=== PATIENT | male | born 1970 | race Caucasian/White ===

== ENCOUNTER 2019-07-06 21:21 | Inpatient (IN) | payer OTHER ==
[~2019-07-06] VITALS: Ht 177.8 cm; Wt 80.7 kg
[2019-07-06] MEDS ORDERED: ONDANSETRON 4 MG/2 ML VIAL IV ONE (21:45)
[2019-07-06] MEDS ORDERED: MORPHINE SULFATE 4 MG/1 ML DISP.SYRIN IV ONE (21:45)
[2019-07-06] MEDS ORDERED: MORPHINE SULFATE 4 MG/1 ML DISP.SYRIN ONE (21:47)
[2019-07-06] MEDS ORDERED: ONDANSETRON 4 MG/2 ML VIAL ONE (21:47)
[2019-07-06 21:52] LABS: BASOPHILS # (AUTO) 0.1 K/uL (0.0-8.0); BASOPHILS % (AUTO) 0.5 % (0.0-2.0); EOSINOPHILS # (AUTO) 0.1 K/uL (0.0-0.7); EOSINOPHILS % (AUTO) 0.8 % (0.0-7.0); HEMATOCRIT 44.8 % (36.7-47.1); HEMOGLOBIN 15.2 g/dL (12.5-16.3); LYMPHOCYTES # (AUTO) 1.7 K/uL (20.0-40.0); LYMPHOCYTES % (AUTO) 12.4 % (20.5-51.5); MEAN CORPUSCULAR HEMOGLOBIN 28.9 uug (23.8-33.4); MEAN CORPUSCULAR HGB CONC 34 g/dL (32.5-36.3); MEAN CORPUSCULAR VOLUME 85.1 fL (73.0-96.2); MONOCYTES # (AUTO) 0.5 K/uL (2.0-10.0); NEUTROPHILS # (AUTO) 11.1 K/uL (1.8-8.9); NEUTROPHILS % (AUTO) 82.3 % (38.5-71.5); PLATELET COUNT (AUTO) 258 K/uL (152-348); RED BLOOD CELL COUNT(AUTO) 5.26 MIL/uL (4.06-5.63); WHITE BLOOD COUNT (AUTO) 13.5 K/uL (3.6-10.2)
[2019-07-06 22:02] LABS: CREATININE 0.7 mg/dL (0.6-1.3); POTASSIUM 3.6 mmol/L (3.5-5.1)
[2019-07-06 22:14] LABS: BILIRUBIN,DIRECT 0.2 mg/dL (0.0-0.2); BILIRUBIN,TOTAL 0.6 mg/dL (0.2-1.0); TOTAL PROTEIN, SERUM 8.3 g/dL (6.4-8.2)
[2019-07-06 23:00] LABS: *BILIRUBIN,URIN NEGATIVE (NEGATIVE); *BLOOD, URINE 2+ (NEGATIVE); *CLARITY,URINE CLOUDY (CLEAR); *COLOR,URINE YELLOW (YELLOW); *KETONES,URINE 2+ (NEGATIVE); LEUKOCYTE ESTERASE ,URINE 1+ (NEGATIVE); NITRITE, URINE POSITIVE (NEGATIVE); UGLUCOSE NEGATIVE (NEGATIVE)
[2019-07-06] MEDS ORDERED: ACETAMINOPHEN ES 500 MG TABLET PO ONE (23:00)
[2019-07-06] MEDS ORDERED: OSELTAMIVIR PHOSPHATE 75 MG CAPSULE PO ONE (23:00)
[2019-07-06] MEDS ORDERED: PIPERACILLIN SODIUM/TAZOBACTAM 3.375 G in IV DEXTROSE 5% 50 ML IV ONE (23:00)
[2019-07-06] MEDS ORDERED: AZITHROMYCIN IV 500 MG in IV DEXTROSE 5% 250 ML IV ONE (23:00)
[2019-07-06] MEDS ORDERED: VANCOMYCIN 1G/D5W 200 ML PIGGYBACK IV ONE (23:00)
[2019-07-06 23:14] LABS: BACTERIA,URINE MANY /HPF (NONE SEEN); MUCUS,URINE MODERATE /LPF (0-FEW); SQUAMOUS EPITHELIAL CELL,UR FEW /HPF (NONE SEEN); WBC,URINE 20-50 /HPF (0-3)
[2019-07-06] MEDS ORDERED: HYDROMORPHONE 1 MG/1 ML DISP.SYRIN ONE (23:36)
[2019-07-06] MEDS ORDERED: HYDROMORPHONE 1 MG/1 ML DISP.SYRIN IV ONE (23:45)
--- NOTE | 2019-07-07 00:30 | NUR ---
Called [facility] for panel placement
[2019-07-07] MEDS ORDERED: PIPERACILLIN/TAZOBACTAM/D5W 50 ML IV ONE (00:43)
[2019-07-07] MEDS ORDERED: AZITHROMYCIN 500MG/ D5W 250ML IVPB **ER PYXIS ONLY IV ONE (00:44)
[2019-07-07] MEDS ORDERED: MAGNESIUM HYDROXIDE 30 ML LIQUID UDC PO PRN (00:45)
[2019-07-07] MEDS ORDERED: Z GUARD REMEDY PASTE 57 GM TUBE TOP PRN (00:45)
[2019-07-07] MEDS ORDERED: ALBUTEROL SULFATE 2.5 MG/ 0.5 ML NEBU NEB PRN (00:45)
[2019-07-07] MEDS ORDERED: ACETAMINOPHEN 325 MG TABLET PO PRN (00:45)
[2019-07-07] MEDS ORDERED: ONDANSETRON 4 MG/2 ML VIAL ONE (01:30)
[2019-07-07] MEDS ORDERED: IV NS 1000 ML 1,000 ML IV ONE ×2 (01:45→02:00)
--- NOTE | 2019-07-07 02:51 | NUR ---
NS IV FLUID AND VANCOMYCIN 1G IV TO INFUSE IN TELEMETRY. LARISA RUFF AWARE
--- NOTE | 2019-07-07 03:00 | NUR ---
awake alert quadriplegic, foot drop noted bilateral arms contracted, decub on right buttocks,healed bilateral heels mother at bedside
[2019-07-07] MEDS: IV NS 1000 ML 1,000 ML IV PRN ×2 (04:36→22:09)
[2019-07-07 05:41] VITALS: BP 114/58
[2019-07-07 05:43] VITALS: BP_SYST 118; BP_SYST 99; BP_DIAS 77
[2019-07-07] MEDS ORDERED: PIPERACILLIN SODIUM/TAZOBACTAM 3.375 G in IV DEXTROSE 5% 50 ML IV ONE (06:45)
[2019-07-07] MEDS: HYDROCODONE/APAP 5-325MG TABLET PO PRN ×2 (07:50→13:41)
[2019-07-07] MEDS: ONDANSETRON 4 MG/2 ML VIAL IV PRN ×3 (08:15→20:39)
[2019-07-07] MEDS: VANCOMYCIN IV 1,250 MG in IV DEXTROSE 5% 250 ML IV SCH ×2 (08:16→17:07)
[2019-07-07 11:36] VITALS: BP 133/79
[2019-07-07] MEDS ORDERED: PIPERACILLIN SODIUM/TAZOBACTAM 3.375 G in IV DEXTROSE 5% 50 ML IV SCH (14:00)
[2019-07-07] MEDS: GUAIFENESIN LA 600 MG TABLET.SA PO SCH ×2 (14:17→20:20)
[2019-07-07 14:44] LABS: BASOPHILS % (AUTO) 0.2 % (0.0-2.0); EOSINOPHILS % (AUTO) 0.3 % (0.0-7.0); HEMATOCRIT 38.9 % (36.7-47.1); HEMOGLOBIN 12.9 g/dL (12.5-16.3); LYMPHOCYTES # (AUTO) 1.6 K/uL (20.0-40.0); LYMPHOCYTES % (AUTO) 10.1 % (20.5-51.5); MEAN CORPUSCULAR HEMOGLOBIN 28.3 uug (23.8-33.4); MEAN CORPUSCULAR HGB CONC 33 g/dL (32.5-36.3); MEAN CORPUSCULAR VOLUME 85.3 fL (73.0-96.2); MONOCYTES # (AUTO) 0.8 K/uL (2.0-10.0); NEUTROPHILS # (AUTO) 13.1 K/uL (1.8-8.9); NEUTROPHILS % (AUTO) 84.4 % (38.5-71.5); PLATELET COUNT (AUTO) 251 K/uL (152-348); RED BLOOD CELL COUNT(AUTO) 4.56 MIL/uL (4.06-5.63); WHITE BLOOD COUNT (AUTO) 15.5 K/uL (3.6-10.2)
[2019-07-07 14:54] LABS: ALANINE AMINOTRANSFERASE 18 U/L (16-63); ALKALINE PHOSPHATASE 94 U/L (50-136); ASPARTATE AMINOTRANSFERASE 8 U/L (15-37); BILIRUBIN,TOTAL 0.6 mg/dL (0.2-1.0); CARBON DIOXIDE 22 mmol/L (21-32); CHLORIDE 103 mmol/L (98-107); CREATININE 0.6 mg/dL (0.6-1.3); GLUCOSE 122 mg/dL (74-106); MAGNESIUM 1.7 mg/dL (1.8-2.4); PHOSPHOROUS 3.3 mg/dL (2.5-4.9); POTASSIUM 3.3 mmol/L (3.5-5.1); TOTAL PROTEIN, SERUM 7.2 g/dL (6.4-8.2); UREA NITROGEN, BLOOD 12 mg/dL (7-18)
--- NOTE | 2019-07-07 14:57 | NUR ---
Clinical Pharmacy Note: Vancomycin Pharmacy to Dose Subjective: To start vancomycin in this 48 y/o female for indication of "suspected infection" Objective: weight 80kg height 177cm BUN/SCr 18/0.7 wbc 13.5 temp 98.4 1gm vanco x1 in ER 07/07 @ 0220 Assessment/Plan As renal function appears stable, will start vancomycin 1250mg q8h for estimated trough of 16.3, first dose today at 0900. Will check trough before 4th scheduled dose, due tomorrow at 0830. Will check trough when available and adjust as needed. Will follow
[2019-07-07 15:32] VITALS: BP 122/74
--- NOTE | 2019-07-07 18:37 | NUR ---
PATIENT IN BED RESTING WITH NO SOB NOTED AND NO C/O PAIN AT THIS TIME. IV INTACT AND PATENT. KEPT CLEAN AND DRY ATALL TIMES. CALL LIGHT WITHIN REACH AND WILL CONTINUE TO MONITOR.
[2019-07-07 20:14] VITALS: BP 158/85
[2019-07-07] MEDS: HYDROMORPHONE 1 MG/1 ML DISP.SYRIN IV PRN (20:21)
[2019-07-07] MEDS: AZITHROMYCIN 250 MG TABLET PO SCH (21:56)
[2019-07-07] MEDS: CEFEPIME HCL 1 G in IV DEXTROSE 5% 50 ML IV SCH (21:58)
[2019-07-08] MEDS: VANCOMYCIN IV 1,250 MG in IV DEXTROSE 5% 250 ML IV SCH ×2 (01:13→09:00)
[2019-07-08] MEDS ORDERED: VANCOMYCIN HCL 500 MG VIAL ONE (01:13)
[2019-07-08] MEDS ORDERED: VANCOMYCIN 1000 MG VIAL ONE (01:13)
[2019-07-08] MEDS: HYDROMORPHONE 1 MG/1 ML DISP.SYRIN IV PRN (04:46)
[2019-07-08 05:14] VITALS: BP 112/61
[2019-07-08] MEDS: ONDANSETRON 4 MG/2 ML VIAL IV PRN ×2 (05:19→14:05)
[2019-07-08 06:59] LABS: BASOPHILS % (AUTO) 0.4 % (0.0-2.0); EOSINOPHILS # (AUTO) 0.1 K/uL (0.0-0.7); EOSINOPHILS % (AUTO) 1.2 % (0.0-7.0); HEMATOCRIT 39.5 % (36.7-47.1); HEMOGLOBIN 13.3 g/dL (12.5-16.3); LYMPHOCYTES # (AUTO) 1.7 K/uL (20.0-40.0); LYMPHOCYTES % (AUTO) 16.1 % (20.5-51.5); MEAN CORPUSCULAR HEMOGLOBIN 28.6 uug (23.8-33.4); MEAN CORPUSCULAR HGB CONC 34 g/dL (32.5-36.3); MEAN CORPUSCULAR VOLUME 85.1 fL (73.0-96.2); MONOCYTES # (AUTO) 0.6 K/uL (2.0-10.0); MONOCYTES % (AUTO) 5.6 % (0.0-11.0); NEUTROPHILS # (AUTO) 8.2 K/uL (1.8-8.9); NEUTROPHILS % (AUTO) 76.7 % (38.5-71.5); PLATELET COUNT (AUTO) 251 K/uL (152-348); RED BLOOD CELL COUNT(AUTO) 4.64 MIL/uL (4.06-5.63); WHITE BLOOD COUNT (AUTO) 10.7 K/uL (3.6-10.2)
[2019-07-08 07:14] LABS: CARBON DIOXIDE 25 mmol/L (21-32); CHLORIDE 105 mmol/L (98-107); CHOLESTEROL 191 mg/dL (<200); CREATININE 0.5 mg/dL (0.6-1.3); GLUCOSE 107 mg/dL (74-106); HDL CHOLESTEROL 21 mg/dL (40-60); MAGNESIUM 1.9 mg/dL (1.8-2.4); PHOSPHOROUS 3.1 mg/dL (2.5-4.9); POTASSIUM 3.3 mmol/L (3.5-5.1); TRIGLYCERIDES 151 MG/DL (30-150); UREA NITROGEN, BLOOD 10 mg/dL (7-18)
[2019-07-08] MEDS: CEFEPIME HCL 1 G in IV DEXTROSE 5% 50 ML IV SCH ×2 (08:46→20:24)
[2019-07-08] MEDS: GUAIFENESIN LA 600 MG TABLET.SA PO SCH ×3 (08:46→20:23)
--- NOTE | 2019-07-08 09:34 | NUR ---
Called Demetra to report elevated vanco trough results, held AM dose of vanco. She will redo dosing.
--- NOTE | 2019-07-08 10:17 | NUR ---
Clinical Pharmacy Note: Vancomycin Pharmacy to Dose Subjective: To continue vancomycin in this 48 y/o female for indication of sepsis/CAP/UTI Objective: weight 80kg height 177cm BUN/SCr 10/0.5 wbc 10.7 temp 99.2 Vancomycin trough on 07/08 at 0830:28.5 Assessment/Plan Since Vancomycin trough is over the therapeutic range(patient is quadriplegic), will hold dose and order random (ordered today at 1500) for further dosing. Will follow the level. Addendum: 07/08/19 at 1625 by DUNG COBURN VANCOMYCIN RANDOM AT 1500: 15.3 WILL CHANGE DOSE TO 1250MG EVERY 12HRS (FIRST DOSE TODAY AT 1700) FOR EXPECTED TROUGH AROUND 15.9
[2019-07-08] MEDS: HYDROCODONE/APAP 5-325MG TABLET PO PRN ×3 (10:57→20:30)
[2019-07-08 11:29] VITALS: BP 155/100
[2019-07-08] MEDS ORDERED: ALBUTEROL SULFATE 1.25 MG/3 ML NEBU NEB SCH (12:30)
[2019-07-08] MEDS ORDERED: POTASSIUM CHLORIDE 20 MEQ TAB.PRT.SR PO ONE (14:30)
[2019-07-08] MEDS: ALBUTEROL SULFATE 1.25 MG/3 ML NEBU NEB SCH ×3 (14:34→23:52)
[2019-07-08] MEDS: IPRATROPIUM BROMIDE 0.5 MG/2.5 ML NEBU NEB SCH ×3 (14:34→23:52)
[2019-07-08] MEDS: IV NS 1000 ML 1,000 ML IV PRN (15:10)
[2019-07-08 15:19] VITALS: BP 102/59
[2019-07-08] MEDS ORDERED: VANCOMYCIN IV 1,250 MG in IV DEXTROSE 5% 250 ML IV SCH (17:00)
--- NOTE | 2019-07-08 17:24 | NUR ---
Patient alert and oriented, french speaking. No distress noted or complaints of further pain. Abdominal pain managed with PO [place] 5-325 given PRN twice this shift. Continues on IV fluids and IV antibiotic therapy. PRN NT suctioning, patient congested. Receiving scheduled breathing treatments. Potassium 3.3, replaced PO today. Skin precautions in place. Patient has arreola in place, quadriplegic. One view chest xray ordered today. Chart check complete.
--- NOTE | 2019-07-08 19:49 | NUR ---
Patient alert and oriented, upper sorbian speaking. No distress noted or complaints pain at this time. AM nurse gave [place] prior this shift, and per patient remains effective. Continues on IV fluids and IV antibiotic therapy. No signs of adverse reactions from ATB running. Patient is not congested at this time, lungs still with rales/crackles. Will ensure that he receives all scheduled breathing treatments. Skin precautions in place. Patient has arreola in place, draining well to yellow urine. Pt is quadriplegic, all fall and safety precautions in place.
[2019-07-08 20:04] VITALS: BP 173/94
[2019-07-08] MEDS: AZITHROMYCIN 250 MG TABLET PO SCH (20:23)
[2019-07-08] MEDS: ATORVASTATIN 40 MG TABLET PO SCH (20:23)
[2019-07-08] MEDS: TEMAZEPAM 15 MG CAPSULE PO PRN (20:23)
[2019-07-09] MEDS: MORPHINE SULFATE 2 MG/1 ML DISP.SYRIN IV PRN ×2 (00:30→19:42)
--- NOTE | 2019-07-09 00:30 | NUR ---
Notified CALEB Pimentel of patient's elevated BP. Started at 0800 PM: 173/94. Medicated with [place] 5/325mg. Rechecked at this time: 168/78. NNO at this time, Patient placed in position of comfort, and provided necessary respiratory care. Pt with audible secretions, refuses suctioning, risk and benefits explained. Pt prefers to have chest pushed to help him expectorate. Able to spit out some phlegm. Monitored hourly.
[2019-07-09 00:59] VITALS: BP 168/88
[2019-07-09] MEDS: IPRATROPIUM BROMIDE 0.5 MG/2.5 ML NEBU NEB SCH ×6 (03:00→22:58)
[2019-07-09] MEDS: ALBUTEROL SULFATE 1.25 MG/3 ML NEBU NEB SCH ×6 (03:00→22:58)
--- NOTE | 2019-07-09 03:30 | NUR ---
At around 0230 Patient started having restlessness and shortness of breath. Verbalizes difficulty in breathing. O2 sat dropped to the 80s. Placed patient on O2 3LPM, titrated to 4LPM via NC, O2 sat: 95%. RT provided breathing tx. Pt still refusing suctioning at first, but able to convince to have 1x. Unable to suction much through naso-tracheal suctioning, oropharyngeal suctioning yielded thin white/clear secretions. Pt placed on comfortable position after. Denies pain. Declines any pain medication. Pt started to calm down, head of bed kept elevated. VS rechecked, all within normal limits, except for BP: 166/71. Pt now complaining of abdominal discomfort possibly related to constipation, CALEB Pimentel contacted at this time.
[2019-07-09] MEDS ORDERED: BISACODYL 10 MG SUPP.RECT RC PRN (04:00)
[2019-07-09] MEDS ORDERED: BISACODYL 10 MG SUPP.RECT RC ONE (04:00)
--- NOTE | 2019-07-09 04:00 | NUR ---
New orders received. Dulcolax suppository given, will monitor effectiveness.
[2019-07-09 05:08] LABS: BASOPHILS # (AUTO) 0.1 K/uL (0.0-8.0); BASOPHILS % (AUTO) 0.6 % (0.0-2.0); EOSINOPHILS # (AUTO) 0.1 K/uL (0.0-0.7); EOSINOPHILS % (AUTO) 0.6 % (0.0-7.0); HEMATOCRIT 43.7 % (36.7-47.1); HEMOGLOBIN 14.8 g/dL (12.5-16.3); LYMPHOCYTES # (AUTO) 2.1 K/uL (20.0-40.0); LYMPHOCYTES % (AUTO) 15.8 % (20.5-51.5); MEAN CORPUSCULAR HEMOGLOBIN 28.6 uug (23.8-33.4); MEAN CORPUSCULAR HGB CONC 34 g/dL (32.5-36.3); MEAN CORPUSCULAR VOLUME 84.5 fL (73.0-96.2); MONOCYTES # (AUTO) 0.6 K/uL (2.0-10.0); MONOCYTES % (AUTO) 4.8 % (0.0-11.0); NEUTROPHILS # (AUTO) 10.6 K/uL (1.8-8.9); NEUTROPHILS % (AUTO) 78.2 % (38.5-71.5); PLATELET COUNT (AUTO) 284 K/uL (152-348); RED BLOOD CELL COUNT(AUTO) 5.17 MIL/uL (4.06-5.63); WHITE BLOOD COUNT (AUTO) 13.6 K/uL (3.6-10.2)
[2019-07-09 05:19] LABS: CARBON DIOXIDE 23 mmol/L (21-32); CHLORIDE 100 mmol/L (98-107); CREATININE 0.6 mg/dL (0.6-1.3); GLUCOSE 139 mg/dL (74-106); MAGNESIUM 1.8 mg/dL (1.8-2.4); PHOSPHOROUS 3.1 mg/dL (2.5-4.9); POTASSIUM 3.1 mmol/L (3.5-5.1); UREA NITROGEN, BLOOD 6 mg/dL (7-18)
[2019-07-09 05:38] VITALS: BP 148/68
[2019-07-09] MEDS: HYDROMORPHONE 1 MG/1 ML DISP.SYRIN IV PRN (06:23)
[2019-07-09] MEDS: ONDANSETRON 4 MG/2 ML VIAL IV PRN (06:25)
[2019-07-09] MEDS: IV NS 1000 ML 1,000 ML IV PRN ×2 (08:49→22:32)
[2019-07-09] MEDS: GUAIFENESIN LA 600 MG TABLET.SA PO SCH ×2 (08:50→20:17)
[2019-07-09] MEDS: CEFEPIME HCL 1 G in IV DEXTROSE 5% 50 ML IV SCH ×2 (08:50→20:16)
[2019-07-09] MEDS: ASPIRIN EC 81 MG TABLET.DR PO SCH (08:50)
[2019-07-09 11:45] VITALS: BP 137/88
[2019-07-09] MEDS ORDERED: POTASSIUM CHLORIDE 20 MEQ TAB.PRT.SR PO ONE (13:15)
[2019-07-09 15:45] VITALS: BP 146/94
--- NOTE | 2019-07-09 18:40 | NUR ---
PATIENT IN BED RESTING WITH FAMILY AT BEDSIDE, NO SOB NOTED , NO C/O PAIN NOTED AT THIS TIME. KEPT CLEAN AND DRY AT ALL TIMES, SAFETY AND COMFORT PROVIDED. WILL CONTINUE TO MONITOR. CALL LIGHT WITHIN REACH.
[2019-07-09 19:30] VITALS: BP 141/90
[2019-07-09] MEDS: AZITHROMYCIN 250 MG TABLET PO SCH (19:42)
[2019-07-09] MEDS: ATORVASTATIN 40 MG TABLET PO SCH (20:17)
[2019-07-09] MEDS: HYDROCODONE/APAP 5-325MG TABLET PO PRN (22:27)
[2019-07-09] MEDS: TEMAZEPAM 15 MG CAPSULE PO PRN (22:27)
[2019-07-10] MEDS: IPRATROPIUM BROMIDE 0.5 MG/2.5 ML NEBU NEB SCH ×7 (02:45→23:06)
[2019-07-10] MEDS: ALBUTEROL SULFATE 1.25 MG/3 ML NEBU NEB SCH ×7 (02:46→23:06)
[2019-07-10] MEDS: hydrALAZINE HCL 20 MG/1 ML VIAL IV PRN ×2 (05:54→20:44)
--- NOTE | 2019-07-10 06:04 | NUR ---
HYDRALAZINE ADMINISTERED FOR SBP >160. WILL F/U WITH PATIENT AND RECHECK BP.
[2019-07-10] MEDS ORDERED: MORPHINE SULFATE 2 MG/1 ML DISP.SYRIN IV PRN (06:30)
[2019-07-10 06:40] LABS: CARBON DIOXIDE 25 mmol/L (21-32); CHLORIDE 105 mmol/L (98-107); CREATININE 0.5 mg/dL (0.6-1.3); GLUCOSE 86 mg/dL (74-106); MAGNESIUM 2.1 mg/dL (1.8-2.4); PHOSPHOROUS 3.5 mg/dL (2.5-4.9); POTASSIUM 3.4 mmol/L (3.5-5.1); UREA NITROGEN, BLOOD 7 mg/dL (7-18)
[2019-07-10 06:44] VITALS: BP 162/99
[2019-07-10 06:57] LABS: BASOPHILS # (AUTO) 0.1 K/uL (0.0-8.0); BASOPHILS % (AUTO) 0.6 % (0.0-2.0); EOSINOPHILS # (AUTO) 0.1 K/uL (0.0-0.7); EOSINOPHILS % (AUTO) 0.8 % (0.0-7.0); HEMATOCRIT 40.4 % (36.7-47.1); HEMOGLOBIN 13.8 g/dL (12.5-16.3); LYMPHOCYTES # (AUTO) 2.8 K/uL (20.0-40.0); LYMPHOCYTES % (AUTO) 29.9 % (20.5-51.5); MEAN CORPUSCULAR HEMOGLOBIN 28.7 uug (23.8-33.4); MEAN CORPUSCULAR HGB CONC 34 g/dL (32.5-36.3); MEAN CORPUSCULAR VOLUME 83.9 fL (73.0-96.2); MONOCYTES # (AUTO) 0.7 K/uL (2.0-10.0); MONOCYTES % (AUTO) 7.3 % (0.0-11.0); NEUTROPHILS # (AUTO) 5.7 K/uL (1.8-8.9); NEUTROPHILS % (AUTO) 61.4 % (38.5-71.5); PLATELET COUNT (AUTO) 286 K/uL (152-348); RED BLOOD CELL COUNT(AUTO) 4.82 MIL/uL (4.06-5.63)
[2019-07-10 07:07] LABS: WHITE BLOOD COUNT (AUTO) 9.2 K/uL (3.6-10.2)
[2019-07-10] MEDS: CEFEPIME HCL 1 G in IV DEXTROSE 5% 50 ML IV SCH (09:02)
[2019-07-10] MEDS: ASPIRIN EC 81 MG TABLET.DR PO SCH (09:02)
[2019-07-10] MEDS: GUAIFENESIN LA 600 MG TABLET.SA PO SCH ×2 (09:02→20:42)
[2019-07-10 10:20] LABS: BAND % (MANUAL) 2 % (0-10); BASOPHILS % (MANUAL) 1 % (0-2); EOSINOPHILS % (MANUAL) 2 % (0-8); LYMPHOCYTES % (MANUAL) 32 % (20-40); METAMYELOCYTES % 1 % (0-1); MONOCYTES % (MANUAL) 9 % (2-10); MYELOCYTES % 3 % (0-0); NEUTROPHILS % (MANUAL) 50 % (42-75)
[2019-07-10] MEDS: AMLODIPINE 5 MG TABLET PO SCH (10:41)
--- NOTE | 2019-07-10 10:44 | NUR ---
received patient AOx2-3, speaking, patient denies any shortness of breath and denies pain at this time, compliant with medication, with IVF NS running at75/hr, patient BP at 161/111, no distress , seen by Dr. Jones, orders made and carried out, will continue monitor
[2019-07-10 11:00] VITALS: BP 166/111
[2019-07-10] MEDS ORDERED: POTASSIUM CHLORIDE 20 MEQ TAB.PRT.SR PO ONE (11:15)
[2019-07-10] MEDS: IV NS 1000 ML 1,000 ML IV PRN (11:47)
--- NOTE | 2019-07-10 13:28 | NUR ---
patient resting in her room, denies of pain, 0/10 pain scale at this time
[2019-07-10] MEDS ORDERED: TAMSULOSIN HCL 0.4 MG CAP.SR.24H PO SCH (14:00)
[2019-07-10] MEDS: DOCUSATE SODIUM 100 MG CAPSULE PO SCH ×2 (14:08→16:10)
[2019-07-10] MEDS: PAROXETINE HCL 20 MG TABLET PO SCH (14:08)
[2019-07-10] MEDS: BACLOFEN 20 MG TABLET PO SCH ×2 (14:08→16:10)
[2019-07-10 15:35] VITALS: BP 115/89
--- NOTE | 2019-07-10 17:18 | NUR ---
patients family brought in a CBD gum and family is asking if patient can take it while his in the hospital, Dr. Jones ordered to return the CBD gum and explained to family that it is not allowed, i returned the cbd gum to Ms. Marisol Murguia (patient's mother) and educate about hospital policy on the CBD gum, will continue monitor
[2019-07-10] MEDS: ATORVASTATIN 40 MG TABLET PO SCH (20:43)
[2019-07-10] MEDS: AZITHROMYCIN 250 MG TABLET PO SCH (20:43)
[2019-07-10] MEDS: HYDROCODONE/APAP 5-325MG TABLET PO PRN (20:43)
[2019-07-10] MEDS: TEMAZEPAM 15 MG CAPSULE PO PRN (20:43)
[2019-07-10 20:57] VITALS: BP 170/104
--- NOTE | 2019-07-10 21:00 | NUR ---
Patient alert and oriented, Bengali speaking. No distress noted, but with complaints of 8-10/10 pain during beginning of shift. Manifesting on Vital signs, BP: 170/104 and feeling warm, T: 99.9. [place] 5/325mg given for pain and slight temperature, Pt also requested for sleeping pill. PRN Hydralazine administered. Pt verbalized feeling progressively better. Will continue to monitor and re-assess patient's condition. Continued on IV fluids and IV antibiotic therapy. No signs of adverse reactions from ATB running. Patient is not congested at this time, lungs still with rales/crackles. Kept on O2 at 3LPM via NC. Will ensure that he receives all scheduled breathing treatments. Skin precautions in place. Patient has arreola in place, draining well to yellow urine. Pt is quadriplegic, all fall and safety precautions in place.
[2019-07-10] MEDS: MEROPENEM 0.5 G in IV NORMAL SALINE 50 ML IV SCH (22:05)
--- NOTE | 2019-07-10 22:09 | NUR ---
Rechecked BP: 103/59, T: 98.8. Pt verbalizes effectiveness of pain medication, pain reduced to tolerable level 2/10. Pt ready for bed. CG at bedside. Will continue to monitor.
[2019-07-11] MEDS: IPRATROPIUM BROMIDE 0.5 MG/2.5 ML NEBU NEB SCH ×5 (03:10→21:38)
[2019-07-11] MEDS: ALBUTEROL SULFATE 1.25 MG/3 ML NEBU NEB SCH ×5 (03:10→21:38)
[2019-07-11] MEDS: IV NS 1000 ML 1,000 ML IV PRN ×2 (03:33→21:02)
[2019-07-11] MEDS: MEROPENEM 0.5 G in IV NORMAL SALINE 50 ML IV SCH ×3 (05:30→21:12)
[2019-07-11 05:42] VITALS: BP 93/52
[2019-07-11 06:33] LABS: BASOPHILS # (AUTO) 0.1 K/uL (0.0-8.0); BASOPHILS % (AUTO) 0.4 % (0.0-2.0); EOSINOPHILS # (AUTO) 0.1 K/uL (0.0-0.7); EOSINOPHILS % (AUTO) 0.7 % (0.0-7.0); HEMATOCRIT 44.3 % (36.7-47.1); HEMOGLOBIN 14.8 g/dL (12.5-16.3); LYMPHOCYTES # (AUTO) 4.5 K/uL (20.0-40.0); LYMPHOCYTES % (AUTO) 31.7 % (20.5-51.5); MEAN CORPUSCULAR HEMOGLOBIN 28.5 uug (23.8-33.4); MEAN CORPUSCULAR HGB CONC 34 g/dL (32.5-36.3); MEAN CORPUSCULAR VOLUME 85.1 fL (73.0-96.2); MONOCYTES # (AUTO) 0.8 K/uL (2.0-10.0); MONOCYTES % (AUTO) 5.7 % (0.0-11.0); NEUTROPHILS # (AUTO) 8.7 K/uL (1.8-8.9); NEUTROPHILS % (AUTO) 61.5 % (38.5-71.5); PLATELET COUNT (AUTO) 344 K/uL (152-348); RED BLOOD CELL COUNT(AUTO) 5.21 MIL/uL (4.06-5.63); WHITE BLOOD COUNT (AUTO) 14.1 K/uL (3.6-10.2)
[2019-07-11 06:42] LABS: CREATININE 0.7 mg/dL (0.6-1.3); MAGNESIUM 2.1 mg/dL (1.8-2.4); PHOSPHOROUS 3.7 mg/dL (2.5-4.9); POTASSIUM 3.9 mmol/L (3.5-5.1)
[2019-07-11] MEDS: PAROXETINE HCL 20 MG TABLET PO SCH (08:19)
[2019-07-11] MEDS: GUAIFENESIN LA 600 MG TABLET.SA PO SCH ×2 (08:19→21:12)
[2019-07-11] MEDS: BACLOFEN 20 MG TABLET PO SCH ×3 (08:19→16:32)
[2019-07-11] MEDS: ASPIRIN EC 81 MG TABLET.DR PO SCH (08:19)
[2019-07-11] MEDS: DOCUSATE SODIUM 100 MG CAPSULE PO SCH ×2 (08:20→16:32)
[2019-07-11] MEDS: AMLODIPINE 5 MG TABLET PO SCH (08:20)
[2019-07-11 10:41] VITALS: BP 117/69
[2019-07-11 11:30] VITALS: BP 102/56
[2019-07-11 15:43] VITALS: BP 103/59
--- NOTE | 2019-07-11 18:20 | NUR ---
Nursing deck supervisor notified pt needs a midline for his abxs. Current iv on right ac is infiltrated and leaking. Pt is in no acute distress. Call light is within reach.
[2019-07-11 20:00] VITALS: BP 107/66
[2019-07-11] MEDS: TAMSULOSIN HCL 0.4 MG CAP.SR.24H PO SCH (21:12)
[2019-07-11] MEDS: ATORVASTATIN 40 MG TABLET PO SCH (21:12)
[2019-07-11] MEDS: AZITHROMYCIN 250 MG TABLET PO SCH (21:14)
[2019-07-11] MEDS: HYDROCODONE/APAP 5-325MG TABLET PO PRN (23:37)
[2019-07-12] MEDS: ALBUTEROL SULFATE 1.25 MG/3 ML NEBU NEB SCH ×7 (00:42→22:50)
[2019-07-12] MEDS: IPRATROPIUM BROMIDE 0.5 MG/2.5 ML NEBU NEB SCH ×7 (00:42→22:50)
[2019-07-12 04:12] VITALS: BP 103/70
[2019-07-12] MEDS: MEROPENEM 0.5 G in IV NORMAL SALINE 50 ML IV SCH ×3 (06:33→21:33)
[2019-07-12 07:29] LABS: BASOPHILS # (AUTO) 0.1 K/uL (0.0-8.0); BASOPHILS % (AUTO) 0.8 % (0.0-2.0); EOSINOPHILS # (AUTO) 0.1 K/uL (0.0-0.7); EOSINOPHILS % (AUTO) 0.8 % (0.0-7.0); HEMATOCRIT 40.5 % (36.7-47.1); HEMOGLOBIN 13.5 g/dL (12.5-16.3); LYMPHOCYTES # (AUTO) 2.8 K/uL (20.0-40.0); LYMPHOCYTES % (AUTO) 17.2 % (20.5-51.5); MEAN CORPUSCULAR HEMOGLOBIN 28.4 uug (23.8-33.4); MEAN CORPUSCULAR HGB CONC 33 g/dL (32.5-36.3); MONOCYTES # (AUTO) 0.7 K/uL (2.0-10.0); MONOCYTES % (AUTO) 4.1 % (0.0-11.0); NEUTROPHILS # (AUTO) 12.5 K/uL (1.8-8.9); NEUTROPHILS % (AUTO) 77.1 % (38.5-71.5); PLATELET COUNT (AUTO) 280 K/uL (152-348); RED BLOOD CELL COUNT(AUTO) 4.76 MIL/uL (4.06-5.63); WHITE BLOOD COUNT (AUTO) 16.2 K/uL (3.6-10.2)
[2019-07-12 07:43] LABS: CARBON DIOXIDE 24 mmol/L (21-32); CREATININE 0.5 mg/dL (0.6-1.3); GLUCOSE 124 mg/dL (74-106); UREA NITROGEN, BLOOD 6 mg/dL (7-18)
--- NOTE | 2019-07-12 08:00 | NUR ---
Received pt. resting in bed alert oriented x4. Pt. denies pain/ discomfort. Pt. denies SOB/ difficulty breathing. Pt. has L UA midline intact patent running prescribed fluid. Safety measures in place. call light within reach. will continue to monitor pt.
[2019-07-12 08:08] LABS: CHLORIDE 102 mmol/L (98-107); POTASSIUM 3.4 mmol/L (3.5-5.1)
[2019-07-12] MEDS: ASPIRIN EC 81 MG TABLET.DR PO SCH (08:43)
[2019-07-12] MEDS: PAROXETINE HCL 20 MG TABLET PO SCH (08:43)
[2019-07-12] MEDS: GUAIFENESIN LA 600 MG TABLET.SA PO SCH ×2 (08:43→20:06)
[2019-07-12] MEDS: AMLODIPINE 5 MG TABLET PO SCH (08:43)
[2019-07-12] MEDS: DOCUSATE SODIUM 100 MG CAPSULE PO SCH ×2 (08:43→17:20)
[2019-07-12] MEDS: BACLOFEN 20 MG TABLET PO SCH ×3 (08:43→17:20)
[2019-07-12 11:05] VITALS: BP 127/79
[2019-07-12] MEDS ORDERED: POTASSIUM CHLORIDE 20 MEQ TAB.PRT.SR PO ONE (11:45)
--- NOTE | 2019-07-12 11:53 | NUR ---
WOUND CARE CONSULT: PT PRESENTS WITH SCARRING TO SACRAL/BUTTOCK AREAS AND TO RT HEEL WELL SCAR WITH DRY ABRASION TO RT ELBOW, ALL PRESENT ON ADMISSION. RECOMMENDATIONS MADE FOR SKIN PROTECTION. DISCUSSED WITH NURSING STAFF. FIRST STEP LOW AIRLOSS MATTRESS ORDERED. WILL SEE PRN. TELLO IN AGREEMENT WITH PLAN OF CARE. CURRENT HIRA SCORE IS 12. Addendum: 07/12/19 at 1155 by MIKE BLANCO RN Amended: Links added.
[2019-07-12] MEDS: IV NS 1000 ML 1,000 ML IV PRN (12:16)
[2019-07-12 15:11] VITALS: BP 184/95
[2019-07-12] MEDS: hydrALAZINE HCL 20 MG/1 ML VIAL IV PRN (15:20)
--- NOTE | 2019-07-12 19:30 | NUR ---
RECEIVED PT AWAKE,ALERT AND ORIENTEDX4. PT IV INTACT. DAVID INTACT AND DWELLING YELLOW COLOR URINE. FAMILY AT BEDSIDE. SAFETY AND COMFORT PROVIDED. WILL CONTINUE TO MONITOR.
[2019-07-12 20:00] VITALS: BP 103/64
[2019-07-12] MEDS: TAMSULOSIN HCL 0.4 MG CAP.SR.24H PO SCH (20:06)
[2019-07-12] MEDS: ATORVASTATIN 40 MG TABLET PO SCH (20:06)
[2019-07-12 20:19] VITALS: BP 137/66
[2019-07-12] MEDS: TEMAZEPAM 15 MG CAPSULE PO PRN (23:18)
[2019-07-13] MEDS: IPRATROPIUM BROMIDE 0.5 MG/2.5 ML NEBU NEB SCH ×4 (02:48→14:50)
[2019-07-13] MEDS: ALBUTEROL SULFATE 1.25 MG/3 ML NEBU NEB SCH ×4 (02:48→14:50)
[2019-07-13] MEDS: IV NS 1000 ML 1,000 ML IV PRN (03:20)
[2019-07-13] MEDS: MEROPENEM 0.5 G in IV NORMAL SALINE 50 ML IV SCH ×2 (05:09→13:29)
--- NOTE | 2019-07-13 06:10 | NUR ---
PT SLEPT INTERMITTENTLY. FAMILY AT BEDSIDE. GIVEN PRUNE JUICE TO PROMOTE BOWEL MOVEMENT. PRESCRIBED MEDICATION GIVEN AND PT TOLERATED IT WELL. SAFETY AND COMFORT PROVIDED. PT TURNED AND REPOSITIONED. WILL ENDORSE TO INCOMING NURSE FOR CONTINUITY OF CARE.
[2019-07-13 06:16] VITALS: BP 162/77
[2019-07-13] MEDS: hydrALAZINE HCL 20 MG/1 ML VIAL IV PRN (06:25)
[2019-07-13 07:04] LABS: BASOPHILS # (AUTO) 0.1 K/uL (0.0-8.0); BASOPHILS % (AUTO) 0.7 % (0.0-2.0); EOSINOPHILS # (AUTO) 0.2 K/uL (0.0-0.7); EOSINOPHILS % (AUTO) 1.9 % (0.0-7.0); HEMATOCRIT 40.2 % (36.7-47.1); HEMOGLOBIN 13.3 g/dL (12.5-16.3); LYMPHOCYTES # (AUTO) 2.5 K/uL (20.0-40.0); LYMPHOCYTES % (AUTO) 21.7 % (20.5-51.5); MEAN CORPUSCULAR HEMOGLOBIN 28.3 uug (23.8-33.4); MEAN CORPUSCULAR HGB CONC 33 g/dL (32.5-36.3); MEAN CORPUSCULAR VOLUME 85.5 fL (73.0-96.2); MONOCYTES # (AUTO) 0.6 K/uL (2.0-10.0); MONOCYTES % (AUTO) 5.2 % (0.0-11.0); NEUTROPHILS # (AUTO) 8.2 K/uL (1.8-8.9); NEUTROPHILS % (AUTO) 70.5 % (38.5-71.5); PLATELET COUNT (AUTO) 287 K/uL (152-348); RED BLOOD CELL COUNT(AUTO) 4.71 MIL/uL (4.06-5.63); WHITE BLOOD COUNT (AUTO) 11.6 K/uL (3.6-10.2)
[2019-07-13 07:22] LABS: CARBON DIOXIDE 24 mmol/L (21-32); CHLORIDE 107 mmol/L (98-107); CREATININE 0.5 mg/dL (0.6-1.3); GLUCOSE 106 mg/dL (74-106); POTASSIUM 3.8 mmol/L (3.5-5.1); UREA NITROGEN, BLOOD 8 mg/dL (7-18)
--- NOTE | 2019-07-13 08:00 | NUR ---
Received pt. resting in bed alert oriented x4. Pt. denies pain/ discomfort. Pt. denies SOB/ difficulty breathing. Pt. has L UA midline intact patent running prescribed fluid. Pt. is having increased spasms. Will report to hospitalist. Safety measures in place. call light within reach. will continue to monitor pt.
[2019-07-13] MEDS: GUAIFENESIN LA 600 MG TABLET.SA PO SCH (08:10)
[2019-07-13] MEDS: ASPIRIN EC 81 MG TABLET.DR PO SCH (08:10)
[2019-07-13] MEDS: BACLOFEN 20 MG TABLET PO SCH ×3 (08:10→16:35)
[2019-07-13] MEDS: PAROXETINE HCL 20 MG TABLET PO SCH (08:10)
[2019-07-13] MEDS: DOCUSATE SODIUM 100 MG CAPSULE PO SCH ×2 (08:10→16:35)
[2019-07-13] MEDS: AMLODIPINE 5 MG TABLET PO SCH (11:13)
[2019-07-13 11:32] VITALS: BP 127/73
[2019-07-13 15:56] VITALS: BP 114/65
--- NOTE | 2019-07-13 18:48 | NUR ---
Pt. discharged home via private ambulance. Midline in place for IV antibiotics at home. ID band removed. All paperwork signed. All photos taken of pt.'s wounds. Pt. in stable condition.
== END 2019-07-13 18:45 | disposition home health service (06) | DRG 720 ==
LOC: EDSEX 21:21 → ER 21:21 → TELE3 07-07 01:01 → MEDSURG3 07-07 15:40
PROVIDERS: ADMIT Nurse Practitioner Acute Care; ATTEND Nurse Practitioner Acute Care
PROC: 05HC33Z Insertion of Infusion Device into Left Basilic Vein, Percutaneous Approach (ICD-10-PCS; principal; 2019-07-11)
DX: A41.9 Sepsis, unspecified organism (principal); G82.50 Quadriplegia, unspecified; J15.9 Unspecified bacterial pneumonia; S14.106S Unspecified injury at C6 level of cervical spinal cord, sequela; E87.1 Hypo-osmolality and hyponatremia; N30.01 Acute cystitis with hematuria; W34.00XS Accidental discharge from unspecified firearms or gun, sequela; E78.5 Hyperlipidemia, unspecified; B96.1 Klebsiella pneumoniae [K. pneumoniae] as the cause of diseases classified elsewhere; Z16.29 Resistance to other single specified antibiotic; Z16.11 Resistance to penicillins; Z16.24 Resistance to multiple antibiotics; K59.00 Constipation, unspecified; I70.0 Atherosclerosis of aorta; E87.6 Hypokalemia; R09.02 Hypoxemia; N20.0 Calculus of kidney; Z87.440 Personal history of urinary (tract) infections
CPT/HCPCS: 36415; 70030-TC; 71045; 74018; 83605; 83735; 84100; 85025; 85730; 87040; 87077; 87086; 87400; 93005; 94640; A4663; A9150; G0378; J0360; J0456; J0692; J1170; J2185; J2270; J2405; J2543; J3370; J3490; J3590; J7030; J7060; Q0144

== ENCOUNTER 2019-10-07 14:16 | Emergency (ER) | payer OTHER ==
[~2019-10-07] VITALS: Ht 177.8 cm; Wt 79.4 kg
[~2019-10-07 14:16] MED LIST: AMLO5TAB9 PO; ASPI81TA31 PO; ATOR40TA PO; BACL20TA PO; DOCU100C36 PO; MERO500P IV; PARO30TA4 PO; TAMS-3 PO
--- NOTE | 2019-10-07 14:55 | NUR ---
PT IS IN ROOM #1A. DR OLEARY EVALUATED THE PT.
[2019-10-07 14:58] LABS: *BILIRUBIN,URIN NEGATIVE (NEGATIVE); *BLOOD, URINE NEGATIVE (NEGATIVE); *CLARITY,URINE CLEAR (CLEAR); *COLOR,URINE YELLOW (YELLOW); *KETONES,URINE 1+ (NEGATIVE); *UROBILINOGEN,URINE 0.2 E.U./dl (NORMAL); LEUKOCYTE ESTERASE ,URINE NEGATIVE (NEGATIVE); NITRITE, URINE NEGATIVE (NEGATIVE); UGLUCOSE NEGATIVE (NEGATIVE)
[2019-10-07 15:10] LABS: BACTERIA,URINE FEW /HPF (NONE SEEN); RBC,URINE 0-3 /HPF (0-3); SQUAMOUS EPITHELIAL CELL,UR FEW /HPF (NONE SEEN); WBC,URINE 0-3 /HPF (0-3)
[2019-10-07 15:38] LABS: BASOPHILS # (AUTO) 0.1 K/uL (0.0-8.0); EOSINOPHILS # (AUTO) 0.2 K/uL (0.0-0.7); EOSINOPHILS % (AUTO) 1.8 % (0.0-7.0); HEMATOCRIT 44.3 % (36.7-47.1); HEMOGLOBIN 14.9 g/dL (12.5-16.3); LYMPHOCYTES # (AUTO) 2.8 K/uL (20.0-40.0); LYMPHOCYTES % (AUTO) 28.3 % (20.5-51.5); MEAN CORPUSCULAR HEMOGLOBIN 28.2 uug (23.8-33.4); MEAN CORPUSCULAR HGB CONC 34 g/dL (32.5-36.3); MEAN CORPUSCULAR VOLUME 83.9 fL (73.0-96.2); MONOCYTES # (AUTO) 0.4 K/uL (2.0-10.0); MONOCYTES % (AUTO) 4.5 % (0.0-11.0); NEUTROPHILS # (AUTO) 6.3 K/uL (1.8-8.9); NEUTROPHILS % (AUTO) 64.4 % (38.5-71.5); PLATELET COUNT (AUTO) 269 K/uL (152-348); RED BLOOD CELL COUNT(AUTO) 5.28 MIL/uL (4.06-5.63); WHITE BLOOD COUNT (AUTO) 9.8 K/uL (3.6-10.2)
[2019-10-07 15:48] LABS: CARBON DIOXIDE 27 mmol/L (21-32); CHLORIDE 103 mmol/L (98-107); CREATININE 0.5 mg/dL (0.6-1.3); GLUCOSE 87 mg/dL (74-106); POTASSIUM 3.6 mmol/L (3.5-5.1); UREA NITROGEN, BLOOD 12 mg/dL (7-18)
[2019-10-07 15:54] LABS: ALANINE AMINOTRANSFERASE 41 U/L (16-63); ALKALINE PHOSPHATASE 102 U/L (50-136); ASPARTATE AMINOTRANSFERASE 20 U/L (15-37); BILIRUBIN,DIRECT 0.1 mg/dL (0.0-0.2); BILIRUBIN,TOTAL 0.5 mg/dL (0.2-1.0); LIPASE 192 U/L (73-393); TOTAL PROTEIN, SERUM 7.8 g/dL (6.4-8.2)
--- NOTE | 2019-10-07 17:46 | NUR ---
PT WAS D/C TO HOME. D/C INSTRUCTIONS GIVEN TO THE PT.
[2019-10-07 17:51] VITALS: BP 135/78
== END 2019-10-07 17:52 | disposition home or self-care (01) ==
LOC: ER 14:20
DX: R10.30 Lower abdominal pain, unspecified (principal); K59.00 Constipation, unspecified; G82.50 Quadriplegia, unspecified; S14.106S Unspecified injury at C6 level of cervical spinal cord, sequela; X95.9XXS Assault by unspecified firearm discharge, sequela; Z87.440 Personal history of urinary (tract) infections; R32 Unspecified urinary incontinence; J98.11 Atelectasis; K76.0 Fatty (change of) liver, not elsewhere classified; N20.0 Calculus of kidney
CPT/HCPCS: 36415; 83690; 85025; 87086; A4663

== ENCOUNTER 2019-12-03 14:55 | Inpatient (IN) | payer OTHER ==
[~2019-12-03] VITALS: Ht 177.8 cm; Wt 79.4 kg
[2019-12-03] MEDS ORDERED: IV NORMAL SALINE 1000 ML BAG IV ONE ×2 (15:30→17:30)
--- NOTE | 2019-12-03 15:57 | NUR ---
LAB DRAWN, IV PLACED, 1 L 0.9 NS INFUSING. [place] LEG BAG PLACED, AWAITING FOR URINE AT THIS TIME.
[2019-12-03 16:00] LABS: BASOPHILS # (AUTO) 0.1 K/uL (0.0-8.0); BASOPHILS % (AUTO) 0.5 % (0.0-2.0); EOSINOPHILS # (AUTO) 0.1 K/uL (0.0-0.7); EOSINOPHILS % (AUTO) 1.1 % (0.0-7.0); HEMATOCRIT 44.1 % (36.7-47.1); HEMOGLOBIN 14.9 g/dL (12.5-16.3); LYMPHOCYTES # (AUTO) 2.9 K/uL (20.0-40.0); MEAN CORPUSCULAR HEMOGLOBIN 28.2 uug (23.8-33.4); MEAN CORPUSCULAR HGB CONC 34 g/dL (32.5-36.3); MEAN CORPUSCULAR VOLUME 83.7 fL (73.0-96.2); MONOCYTES # (AUTO) 0.7 K/uL (2.0-10.0); MONOCYTES % (AUTO) 6.3 % (0.0-11.0); NEUTROPHILS # (AUTO) 7.2 K/uL (1.8-8.9); NEUTROPHILS % (AUTO) 66.1 % (38.5-71.5); PLATELET COUNT (AUTO) 282 K/uL (152-348); RED BLOOD CELL COUNT(AUTO) 5.27 MIL/uL (4.06-5.63)
[2019-12-03 16:09] LABS: ALANINE AMINOTRANSFERASE 24 U/L (16-63); ALKALINE PHOSPHATASE 110 U/L (50-136); ASPARTATE AMINOTRANSFERASE 15 U/L (15-37); BILIRUBIN,DIRECT 0.1 mg/dL (0.0-0.2); BILIRUBIN,TOTAL 0.6 mg/dL (0.2-1.0); CARBON DIOXIDE 19 mmol/L (21-32); CHLORIDE 105 mmol/L (98-107); CREATININE 0.6 mg/dL (0.6-1.3); GLUCOSE 80 mg/dL (74-106); LIPASE 895 U/L (73-393); POTASSIUM 3.3 mmol/L (3.5-5.1); TOTAL PROTEIN, SERUM 7.9 g/dL (6.4-8.2); UREA NITROGEN, BLOOD 9 mg/dL (7-18)
[2019-12-03 16:24] LABS: *BILIRUBIN,URIN NEGATIVE (NEGATIVE); *BLOOD, URINE NEGATIVE (NEGATIVE); *CLARITY,URINE SLIGHTLY CLOUDY (CLEAR); *COLOR,URINE YELLOW (YELLOW); *KETONES,URINE NEGATIVE (NEGATIVE); *UROBILINOGEN,URINE 0.2 E.U./dl (NORMAL); LEUKOCYTE ESTERASE ,URINE 2+ (NEGATIVE); NITRITE, URINE POSITIVE (NEGATIVE); PH,URINE 8.5 (5.0-8.0); UGLUCOSE NEGATIVE (NEGATIVE)
[2019-12-03 16:35] LABS: RBC,URINE 0-3 /HPF (0-3)
[2019-12-03 16:36] LABS: BACTERIA,URINE MODERATE /HPF (NONE SEEN); SQUAMOUS EPITHELIAL CELL,UR MODERATE /HPF (NONE SEEN)
[2019-12-03] MEDS ORDERED: ONDANSETRON 4 MG/2 ML VIAL ONE (18:11)
[2019-12-03] MEDS ORDERED: MORPHINE SULFATE 4 MG/1 ML DISP.SYRIN ONE (18:11)
[2019-12-03] MEDS ORDERED: ONDANSETRON 4 MG/2 ML VIAL IV ONE (18:15)
[2019-12-03] MEDS ORDERED: MORPHINE SULFATE 4 MG/1 ML DISP.SYRIN IV ONE (18:15)
--- NOTE | 2019-12-03 18:31 | NUR ---
PT ACCIDENTLY PULLED LEFT WRIST V LOCK. I PLACED 22 G TO RT FOREARM. MORPHINE AND ZOFRAN IV ADMINISTERED, ALSO 1L 0.9NS INFUSING ST THE SITE. [facility] APPROVED ADMISSION.
--- NOTE | 2019-12-03 19:00 | NUR ---
SBAR REPORT TO MAURICIO HUTSON RN.
--- NOTE | 2019-12-03 20:10 | NUR ---
Transfered to 3rd floor Med surg via gurny with no distress noted.
--- NOTE | 2019-12-03 20:15 | NUR ---
patient received from ER. v/s stable. no s/s of acute distress. ID band on. Belongings list completed. condom catheter noted. RW PIV intact and patent running NS and ABX. wound assessed and orders placed. safety measures in place, call light placed for quadriplegic patients. will continue to monitor and assess.
[2019-12-03] MEDS ORDERED: Z GUARD REMEDY PASTE 57 GM TUBE TOP PRN (20:30)
[2019-12-03] MEDS ORDERED: MAGNESIUM HYDROXIDE 30 ML LIQUID UDC PO PRN (20:30)
[2019-12-03] MEDS ORDERED: HYDROCODONE/APAP 5-325MG TABLET PO PRN (20:30)
[2019-12-03] MEDS ORDERED: ZOLPIDEM 5 MG TABLET PO PRN (20:30)
[2019-12-03] MEDS ORDERED: MORPHINE SULFATE 2 MG/1 ML DISP.SYRIN IV PRN (20:30)
[2019-12-03] MEDS ORDERED: ACETAMINOPHEN 325 MG TABLET PO PRN (20:30)
[2019-12-03] MEDS ORDERED: MINERAL OIL FLEET ENEMA 133 ML BOTTLE RC PRN (20:45)
[2019-12-03 21:11] VITALS: BP 145/97
[2019-12-03] MEDS ORDERED: CEFTRIAXONE /D5W 50ML IVPB **ER PYXIS IV ONE (21:41)
[2019-12-03] MEDS: IV NS 1000 ML 1,000 ML IV PRN (22:09)
[2019-12-03] MEDS: CEFTRIAXONE 1 G in IV DEXTROSE 5% 50 ML IV SCH (22:10)
[2019-12-04] MEDS: IV NS 1000 ML 1,000 ML IV PRN ×3 (05:26→19:47)
[2019-12-04 05:51] LABS: BASOPHILS % (AUTO) 0.4 % (0.0-2.0); EOSINOPHILS # (AUTO) 0.2 K/uL (0.0-0.7); EOSINOPHILS % (AUTO) 2.3 % (0.0-7.0); HEMATOCRIT 41.5 % (36.7-47.1); HEMOGLOBIN 13.8 g/dL (12.5-16.3); LYMPHOCYTES # (AUTO) 2.2 K/uL (20.0-40.0); LYMPHOCYTES % (AUTO) 26.7 % (20.5-51.5); MEAN CORPUSCULAR HEMOGLOBIN 28.3 uug (23.8-33.4); MEAN CORPUSCULAR HGB CONC 33 g/dL (32.5-36.3); MONOCYTES # (AUTO) 0.5 K/uL (2.0-10.0); MONOCYTES % (AUTO) 5.7 % (0.0-11.0); NEUTROPHILS # (AUTO) 5.4 K/uL (1.8-8.9); NEUTROPHILS % (AUTO) 64.9 % (38.5-71.5); PLATELET COUNT (AUTO) 229 K/uL (152-348); RED BLOOD CELL COUNT(AUTO) 4.88 MIL/uL (4.06-5.63); WHITE BLOOD COUNT (AUTO) 8.3 K/uL (3.6-10.2)
[2019-12-04 06:01] VITALS: BP 140/91
[2019-12-04 06:05] LABS: ALANINE AMINOTRANSFERASE 19 U/L (16-63); ALKALINE PHOSPHATASE 91 U/L (50-136); ASPARTATE AMINOTRANSFERASE 12 U/L (15-37); BILIRUBIN,TOTAL 0.4 mg/dL (0.2-1.0); CARBON DIOXIDE 22 mmol/L (21-32); CHLORIDE 111 mmol/L (98-107); CHOLESTEROL 225 mg/dL (<200); CREATININE 0.5 mg/dL (0.6-1.3); GLUCOSE 95 mg/dL (74-106); HDL CHOLESTEROL 27 mg/dL (40-60); MAGNESIUM 2.1 mg/dL (1.8-2.4); POTASSIUM 3.4 mmol/L (3.5-5.1); TOTAL PROTEIN, SERUM 6.8 g/dL (6.4-8.2); TRIGLYCERIDES 146 MG/DL (30-150); UREA NITROGEN, BLOOD 7 mg/dL (7-18)
--- NOTE | 2019-12-04 06:14 | NUR ---
v/s stable this morning. no s/s of acute distress. no c/o of pain. PIV intact and patent. IVF running as ordered. ordered antibiotics administered without ASE. safety precaution in place. call light for disabled in comfortable position. meplix applied to sacrum. will continue to assess and monitor.
[2019-12-04] MEDS: PANTOPRAZOLE SODIUM 40 MG TABLET.DR PO SCH (06:16)
[2019-12-04 06:26] LABS: LIPASE 310 U/L (73-393)
[2019-12-04] MEDS ORDERED: POTASSIUM CHLORIDE 20 MEQ TAB.PRT.SR PO ONE (07:45)
[2019-12-04] MEDS: DOCUSATE SODIUM 100 MG CAPSULE PO SCH ×2 (08:44→20:27)
[2019-12-04] MEDS: PAROXETINE HCL 10 MG TABLET PO SCH (08:44)
[2019-12-04] MEDS: BACLOFEN 20 MG TABLET PO SCH ×3 (08:44→17:39)
[2019-12-04] MEDS: ASPIRIN 81 MG TAB.CHEW PO SCH (08:44)
[2019-12-04] MEDS: MIRALAX 17 GM POWD.PACK PO SCH (08:45)
[2019-12-04] MEDS: AMLODIPINE 5 MG TABLET PO SCH (08:50)
[2019-12-04] MEDS ORDERED: MORPHINE SULFATE 4 MG/1 ML DISP.SYRIN IV PRN (09:00)
[2019-12-04] MEDS ORDERED: BISACODYL 10 MG SUPP.RECT RC PRN (10:30)
[2019-12-04] MEDS ORDERED: MORPHINE SULFATE 2 MG/1 ML DISP.SYRIN IV PRN (11:00)
[2019-12-04] MEDS: ONDANSETRON 4 MG/2 ML VIAL IV PRN ×2 (11:26→23:08)
[2019-12-04 11:30] VITALS: BP 141/93
[2019-12-04 15:58] VITALS: BP 132/91
[2019-12-04] MEDS: MORPHINE SULFATE 4 MG/1 ML DISP.SYRIN IV PRN (19:46)
--- NOTE | 2019-12-04 20:00 | NUR ---
Received patient awake and alert. Patient shows no signs or symptoms of distress at this time. Pt complains of 8/10 abdominal pain at this time. PRN morphine given as per MD order. IV intact and patent. Bed set to lowest position. Side rails X2 are up. Call light within reach. Will continue to monitor patient.
[2019-12-04] MEDS: CEFTRIAXONE 1 G in IV DEXTROSE 5% 50 ML IV SCH (20:27)
[2019-12-04] MEDS: ATORVASTATIN 40 MG TABLET PO SCH (20:27)
[2019-12-04] MEDS: TAMSULOSIN HCL 0.4 MG CAP.SR.24H PO SCH (20:27)
[2019-12-04 20:35] VITALS: BP 159/94
--- NOTE | 2019-12-04 21:43 | NUR ---
Offered to do fleet enema but patient declines to do it at this time and would like to rest. Instructed patient to notify nurse when he is ready. Patient verbalized understanding and has no further questions.
[2019-12-05] MEDS: IV NS 1000 ML 1,000 ML IV PRN (03:00)
[2019-12-05] MEDS: ONDANSETRON 4 MG/2 ML VIAL IV PRN ×4 (05:49→18:31)
[2019-12-05] MEDS: PANTOPRAZOLE SODIUM 40 MG TABLET.DR PO SCH (06:36)
[2019-12-05 06:39] VITALS: BP 136/72
[2019-12-05 06:39] LABS: CARBON DIOXIDE 15 mmol/L (21-32); CHLORIDE 109 mmol/L (98-107); CREATININE 0.5 mg/dL (0.6-1.3); GLUCOSE 63 mg/dL (74-106); MAGNESIUM 1.9 mg/dL (1.8-2.4); PHOSPHOROUS 3.4 mg/dL (2.5-4.9); POTASSIUM 3.7 mmol/L (3.5-5.1); UREA NITROGEN, BLOOD 5 mg/dL (7-18)
[2019-12-05 06:44] LABS: BASOPHILS % (AUTO) 0.5 % (0.0-2.0); EOSINOPHILS # (AUTO) 0.1 K/uL (0.0-0.7); EOSINOPHILS % (AUTO) 0.9 % (0.0-7.0); HEMATOCRIT 42.4 % (36.7-47.1); HEMOGLOBIN 14.1 g/dL (12.5-16.3); LYMPHOCYTES # (AUTO) 1.5 K/uL (20.0-40.0); LYMPHOCYTES % (AUTO) 15.7 % (20.5-51.5); MEAN CORPUSCULAR HEMOGLOBIN 28.3 uug (23.8-33.4); MEAN CORPUSCULAR HGB CONC 33 g/dL (32.5-36.3); MEAN CORPUSCULAR VOLUME 84.9 fL (73.0-96.2); MONOCYTES # (AUTO) 0.4 K/uL (2.0-10.0); MONOCYTES % (AUTO) 4.2 % (0.0-11.0); NEUTROPHILS # (AUTO) 7.4 K/uL (1.8-8.9); NEUTROPHILS % (AUTO) 78.7 % (38.5-71.5); PLATELET COUNT (AUTO) 234 K/uL (152-348); RED BLOOD CELL COUNT(AUTO) 4.99 MIL/uL (4.06-5.63); WHITE BLOOD COUNT (AUTO) 9.4 K/uL (3.6-10.2)
[2019-12-05] MEDS: MORPHINE SULFATE 4 MG/1 ML DISP.SYRIN IV PRN ×2 (06:48)
--- NOTE | 2019-12-05 07:03 | NUR ---
Patient shows no signs or symptoms of distress at this time. Vital signs stable. Pt agreeable to fleet enema and was given. IV infiltrated and unable to find vein for reinsertion. Will endorse to day shift nurse.
--- NOTE | 2019-12-05 07:30 | NUR ---
Patient received resting in bed, no sign if respiratory distress. Patient is saturating well on room air. IV was reported to infiltrated in the change of shift report, will discontinue this IV and start a new one. Safety measures in place, bed in lowest position, locked and alarm activated. Also call light and patient belongings are within reach. Will continue to monitor.
[2019-12-05] MEDS: MIRALAX 17 GM POWD.PACK PO SCH (08:34)
[2019-12-05] MEDS: DOCUSATE SODIUM 100 MG CAPSULE PO SCH ×2 (08:35→20:56)
[2019-12-05] MEDS: BACLOFEN 20 MG TABLET PO SCH ×3 (08:35→17:55)
[2019-12-05] MEDS: ASPIRIN 81 MG TAB.CHEW PO SCH (08:36)
[2019-12-05] MEDS: AMLODIPINE 5 MG TABLET PO SCH (08:44)
[2019-12-05] MEDS: PAROXETINE HCL 10 MG TABLET PO SCH (08:56)
--- NOTE | 2019-12-05 09:30 | NUR ---
Patient morning blood pressure medication Amlodipine was help because blood pressure was not within the normal limits. Will document in emar and continue to monitor.
[2019-12-05 11:33] VITALS: BP 103/63
--- NOTE | 2019-12-05 11:41 | NUR ---
WOUND CARE CONSULT: PT IS UNSTABLE AT THIS TIME FOR SKIN ASSESSMENT. REVIEWED CHART, NURSING DOCUMENTATION AND PHOTOS WHICH SHOW SCARRING TO SACRUM AND BUTTOCKS, PRESENT ON ADMISSION. RECOMMENDATIONS MADE FOR SKIN PROTECTION. DISCUSSED WITH NURSING STAFF. FIRST STEP LOW AIRLOSS MATTRESS ON ORDER. WILL SEE PRN. IN AGREEMENT WITH PLAN OF CARE. CURRENT HIRA SCORE IS 12.
--- NOTE | 2019-12-05 12:00 | NUR ---
Patient reports abdominal pain and not feeling well, checked blood pressure and blood glucose and a new IV was started and fluid bolus given. The patient tolerated well, will continue to observe and monitor.
[2019-12-05] MEDS ORDERED: IV D5/ 0.9% NACL 1,000 ML IV ONE (12:30)
[2019-12-05 16:00] VITALS: BP 117/70
--- NOTE | 2019-12-05 19:52 | NUR ---
PATIENT CALM AND COMFORTABLE THROUGH OUT SHIFT WITH NO SIGNS OF DISTRESS; PATIENT HAD EPISODE OF HYPOTENSION THROUGH OUT SHIFT; MD NOTIFIED AND PATIENT GIVEN BOLUS OF FLUIDS; PATIENT BLOOD PRESSURE STABILIZED . PATIENT OTHERWISE IN STABLE CONDITION.
[2019-12-05 20:00] VITALS: BP 109/70
--- NOTE | 2019-12-05 20:00 | NUR ---
Received patient awake and alert. Patient shows no signs or symptoms of distress at this time. Vital signs stable. Blood pressure 109/70. Reports feeling better. Bed set to lowest position. Call light within reach. Side rails X2 are up. Will continue to monitor patient.
[2019-12-05] MEDS: CEFTRIAXONE 1 G in IV DEXTROSE 5% 50 ML IV SCH (20:56)
[2019-12-05] MEDS: ATORVASTATIN 40 MG TABLET PO SCH (20:56)
[2019-12-05] MEDS: TAMSULOSIN HCL 0.4 MG CAP.SR.24H PO SCH (20:56)
[2019-12-06] MEDS: IV NS 1000 ML 1,000 ML IV PRN ×2 (02:13→11:19)
[2019-12-06 05:00] VITALS: BP 102/69
[2019-12-06] MEDS: PANTOPRAZOLE SODIUM 40 MG TABLET.DR PO SCH (06:02)
[2019-12-06 06:45] LABS: BASOPHILS % (AUTO) 0.4 % (0.0-2.0); CARBON DIOXIDE 20 mmol/L (21-32); CHLORIDE 113 mmol/L (98-107); CREATININE 0.5 mg/dL (0.6-1.3); EOSINOPHILS # (AUTO) 0.1 K/uL (0.0-0.7); EOSINOPHILS % (AUTO) 0.8 % (0.0-7.0); GLUCOSE 98 mg/dL (74-106); HEMATOCRIT 38.4 % (36.7-47.1); HEMOGLOBIN 12.8 g/dL (12.5-16.3); LYMPHOCYTES # (AUTO) 2.1 K/uL (20.0-40.0); LYMPHOCYTES % (AUTO) 27.2 % (20.5-51.5); MEAN CORPUSCULAR HEMOGLOBIN 28.3 uug (23.8-33.4); MEAN CORPUSCULAR HGB CONC 34 g/dL (32.5-36.3); MEAN CORPUSCULAR VOLUME 84.6 fL (73.0-96.2); MONOCYTES # (AUTO) 0.6 K/uL (2.0-10.0); MONOCYTES % (AUTO) 7.5 % (0.0-11.0); NEUTROPHILS % (AUTO) 64.1 % (38.5-71.5); PLATELET COUNT (AUTO) 241 K/uL (152-348); POTASSIUM 3.2 mmol/L (3.5-5.1); RED BLOOD CELL COUNT(AUTO) 4.54 MIL/uL (4.06-5.63); UREA NITROGEN, BLOOD 4 mg/dL (7-18); WHITE BLOOD COUNT (AUTO) 7.8 K/uL (3.6-10.2)
[2019-12-06] MEDS ORDERED: POTASSIUM CHLORIDE 20 MEQ TAB.PRT.SR PO ONE (07:45)
[2019-12-06] MEDS: MIRALAX 17 GM POWD.PACK PO SCH (08:10)
[2019-12-06] MEDS: PAROXETINE HCL 10 MG TABLET PO SCH (08:10)
[2019-12-06] MEDS: AMLODIPINE 5 MG TABLET PO SCH (08:10)
[2019-12-06] MEDS: ASPIRIN 81 MG TAB.CHEW PO SCH (08:10)
[2019-12-06] MEDS: DOCUSATE SODIUM 100 MG CAPSULE PO SCH (08:10)
[2019-12-06] MEDS: BACLOFEN 20 MG TABLET PO SCH ×2 (08:10→12:25)
[2019-12-06 11:53] VITALS: BP 115/73
--- NOTE | 2019-12-06 15:18 | NUR ---
dc orders received noted and carried out,dc heplock per md orders,pt left the facility via ambulances in stable condition
== END 2019-12-06 15:30 | disposition home or self-care (01) | DRG 282 ==
LOC: ER 14:59 → MEDSURG3 19:48
PROVIDERS: ADMIT Hospitalist; ATTEND Nurse Practitioner Acute Care
PROC: 05HY33Z Insertion of Infusion Device into Upper Vein, Percutaneous Approach (ICD-10-PCS; principal; 2019-12-05)
DX: K85.90 Acute pancreatitis without necrosis or infection, unspecified (principal); G82.54 Quadriplegia, C5-C7 incomplete; E87.2 Acidosis; E44.1 Mild protein-calorie malnutrition; E88.09 Other disorders of plasma-protein metabolism, not elsewhere classified; M62.50 Muscle wasting and atrophy, not elsewhere classified, unspecified site; E87.6 Hypokalemia; F32.9 Major depressive disorder, single episode, unspecified; J98.11 Atelectasis; N39.0 Urinary tract infection, site not specified; Z79.82 Long term (current) use of aspirin; Z87.440 Personal history of urinary (tract) infections; Y23.0XXS Shotgun discharge, undetermined intent, sequela; W34.00XS Accidental discharge from unspecified firearms or gun, sequela; N32.3 Diverticulum of bladder
CPT/HCPCS: 36415; 51798; 71045; 83690; 83735; 84100; 84443; 85025; 87086; A4663; G0378; J0696; J2270; J2405; J7030; J7042; J7060

== ENCOUNTER 2020-01-15 11:55 | Inpatient (IN) | payer OTHER ==
[~2020-01-15] VITALS: Ht 175.3 cm; Wt 77.1 kg
[2020-01-15] VITALS (26 sets, daily range): BP systolic 68–171; BP diastolic 46–116
[~2020-01-15 11:55] MED LIST changes: -MERO500P IV
[2020-01-15] MEDS ORDERED: IV NORMAL SALINE 1000 ML BAG IV ONE ×2 (12:00→13:15)
[2020-01-15] MEDS ORDERED: ONDANSETRON 4 MG/2 ML VIAL IV ONE (12:00)
--- NOTE | 2020-01-15 12:00 | NUR ---
Dr Hall at the bedside for MSE.
[2020-01-15] MEDS ORDERED: ONDANSETRON 4 MG/2 ML VIAL ONE (12:15)
[2020-01-15 12:22] LABS: BASOPHILS # (AUTO) 0.1 K/uL (0.0-8.0); BASOPHILS % (AUTO) 0.9 % (0.0-2.0); EOSINOPHILS # (AUTO) 0.2 K/uL (0.0-0.7); EOSINOPHILS % (AUTO) 1.5 % (0.0-7.0); HEMATOCRIT 46.3 % (36.7-47.1); HEMOGLOBIN 15.7 g/dL (12.5-16.3); LYMPHOCYTES # (AUTO) 2.7 K/uL (20.0-40.0); LYMPHOCYTES % (AUTO) 24.5 % (20.5-51.5); MEAN CORPUSCULAR HGB CONC 34 g/dL (32.5-36.3); MEAN CORPUSCULAR VOLUME 82.9 fL (73.0-96.2); MONOCYTES # (AUTO) 0.6 K/uL (2.0-10.0); MONOCYTES % (AUTO) 5.5 % (0.0-11.0); NEUTROPHILS # (AUTO) 7.4 K/uL (1.8-8.9); NEUTROPHILS % (AUTO) 67.6 % (38.5-71.5); PLATELET COUNT (AUTO) 444 K/uL (152-348); RED BLOOD CELL COUNT(AUTO) 5.59 MIL/uL (4.06-5.63); WHITE BLOOD COUNT (AUTO) 10.9 K/uL (3.6-10.2)
[2020-01-15 12:25] LABS: *BLOOD, URINE NEGATIVE (NEGATIVE); *CLARITY,URINE CLEAR (CLEAR); *COLOR,URINE YELLOW (YELLOW); *KETONES,URINE 4+ (NEGATIVE); *UROBILINOGEN,URINE 0.2 E.U./dl (NORMAL); LEUKOCYTE ESTERASE ,URINE 2+ (NEGATIVE); NITRITE, URINE NEGATIVE (NEGATIVE); UGLUCOSE NEGATIVE (NEGATIVE)
[2020-01-15 12:26] LABS: *BILIRUBIN,URIN 1+ (NEGATIVE)
[2020-01-15 12:37] LABS: CREATININE 0.7 mg/dL (0.6-1.3); POTASSIUM 3.8 mmol/L (3.5-5.1)
[2020-01-15] MEDS ORDERED: MORPHINE SULFATE 4 MG/1 ML DISP.SYRIN ONE (12:42)
[2020-01-15 12:43] LABS: BILIRUBIN,DIRECT 0.1 mg/dL (0.0-0.2); BILIRUBIN,TOTAL 0.5 mg/dL (0.2-1.0); TOTAL PROTEIN, SERUM 8.1 g/dL (6.4-8.2)
--- NOTE | 2020-01-15 12:44 | NUR ---
Pt BP lowered to 78/44, Dr Hall made aware, IVF ordered.
[2020-01-15] MEDS ORDERED: MORPHINE SULFATE 4 MG/1 ML DISP.SYRIN IV ONE (12:45)
[2020-01-15] MEDS ORDERED: IV NORMAL SALINE 250 ML IV ONE (12:56)
[2020-01-15] MEDS ORDERED: SWABABLE VALVE TRANSFER SET EA MC ONE (12:56)
[2020-01-15] MEDS ORDERED: IOHEXOL 300MG/ML 100 ML INFUS..BTL ONE (12:56)
[2020-01-15] MEDS ORDERED: CEFTRIAXONE 1 G in IV DEXTROSE 5% 50 ML IV ONE (13:00)
--- NOTE | 2020-01-15 13:05 | NUR ---
Pt out of ER for CT.
[2020-01-15] MEDS ORDERED: CEFTRIAXONE 1 G VIAL ONE (13:13)
--- NOTE | 2020-01-15 13:30 | NUR ---
Pt back from CT, denies pain.
[2020-01-15] MEDS ORDERED: ACET-2154 PO (14:00)
[2020-01-15] MEDS ORDERED: SIMV-49 PO (14:00)
[2020-01-15] MEDS ORDERED: METRONIDAZOLE 500 MG/NS 100 ML PIGGYBACK IV ONE (14:00)
[2020-01-15] MEDS ORDERED: METRONIDAZOLE 500 MG/NS 100ML 0 ML IV ONE (14:15)
[2020-01-15] MEDS ORDERED: IV NORMAL SALINE 500 ML BAG IV ONE (14:15)
--- NOTE | 2020-01-15 14:49 | NUR ---
MIR Wilson states that patient will be given auth to admit.
[2020-01-15] MEDS ORDERED: NOREPINEPHRINE BITARTRATE 8 MG in IV NORMAL SALINE 250 ML IV ONE (15:45)
[2020-01-15] MEDS ORDERED: ACETAMINOPHEN 650 MG SUPP.RECT RC PRN (15:45)
[2020-01-15 16:10] LABS: BACTERIA,URINE 2 /HPF (NONE SEEN); RBC,URINE 0-3 /HPF (0-3); SQUAMOUS EPITHELIAL CELL,UR FEW /HPF (NONE SEEN)
--- NOTE | 2020-01-15 16:14 | NUR ---
Patient is resting comfortably in bed with eyes closed, NAD noted.
[2020-01-15] MEDS ORDERED: VANCOMYCIN IV 1,000 MG in IV DEXTROSE 5% 250 ML IV SCH (17:00)
--- NOTE | 2020-01-15 17:07 | NUR ---
Patient in from ER. via gurney accompanied by primary R.N. vitals as follow HR of 91, sbp of 162/103. saturation of 98% on RA. afebrile 97.5 Patient situated in bed. AAOX4. 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 triple lumen RIJ. and peripheral LAC. G18. If needed pictures will be endorsed to incoming shift. Attending MD called to be notified of pt's arrival and current condition.
[2020-01-15] MEDS: IV D5/ 0.9% NACL 1,000 ML IV PRN (17:32)
[2020-01-15] MEDS: ONDANSETRON 4 MG/2 ML VIAL IV PRN (17:33)
[2020-01-15] MEDS: MORPHINE SULFATE 2 MG/1 ML DISP.SYRIN IV PRN (17:33)
[2020-01-15] MEDS: ENOXAPARIN SODIUM 40 MG/0.4 ML DISP.SYRIN SQ SCH (17:35)
[2020-01-15] MEDS ORDERED: PIPERACILLIN SODIUM/TAZOBACTAM 3.375 G in IV DEXTROSE 5% 50 ML IV ONE (18:00)
[2020-01-15] MEDS ORDERED: NOREPINEPHRINE BITARTRATE 8 MG in IV NORMAL SALINE 242 ML IV PRN (18:45)
--- NOTE | 2020-01-15 20:35 | NUR ---
@2009 the patient complained of severe itching, nausea, and pain soon after I restarted the Zosyn. Infusion immediately ceased, and call placed into Dr. Drew. @2024 Devaughn Adkins NP in the unit and she will be on this case for Infectious Disease. Apprised of the reaction to Zosyn and she will be making adjustments to the antibiotics.
[2020-01-15] MEDS: levoFLOXacin 500 MG/D5W 500 MG in PREMIXED 1 EACH IV SCH (21:11)
[2020-01-15] MEDS: METRONIDAZOLE 500 MG/NS 100ML 500 MG in PREMIXED 1 EACH IV SCH (22:00)
[2020-01-15] MEDS ORDERED: METRONIDAZOLE 500 MG/NS 100ML 100 ML IV ONE (23:35)
[2020-01-16] VITALS (14 sets, daily range): BP systolic 82–138; BP diastolic 49–115
[2020-01-16] MEDS ORDERED: PIPERACILLIN SODIUM/TAZOBACTAM 3.375 G in IV DEXTROSE 5% 100 ML IV SCH ×2
[2020-01-16] MEDS: MORPHINE SULFATE 2 MG/1 ML DISP.SYRIN IV PRN ×4 (01:51→22:15)
[2020-01-16] MEDS: ONDANSETRON 4 MG/2 ML VIAL IV PRN ×3 (04:01→14:17)
[2020-01-16 05:14] LABS: BASOPHILS # (AUTO) 0.1 K/uL (0.0-8.0); BASOPHILS % (AUTO) 0.9 % (0.0-2.0); EOSINOPHILS # (AUTO) 0.1 K/uL (0.0-0.7); HEMOGLOBIN 12.9 g/dL (12.5-16.3); LYMPHOCYTES # (AUTO) 1.2 K/uL (20.0-40.0); LYMPHOCYTES % (AUTO) 16.2 % (20.5-51.5); MEAN CORPUSCULAR HEMOGLOBIN 27.7 uug (23.8-33.4); MEAN CORPUSCULAR HGB CONC 33 g/dL (32.5-36.3); MEAN CORPUSCULAR VOLUME 83.6 fL (73.0-96.2); MONOCYTES # (AUTO) 0.5 K/uL (2.0-10.0); NEUTROPHILS # (AUTO) 5.5 K/uL (1.8-8.9); NEUTROPHILS % (AUTO) 73.9 % (38.5-71.5); PLATELET COUNT (AUTO) 348 K/uL (152-348); RED BLOOD CELL COUNT(AUTO) 4.66 MIL/uL (4.06-5.63); WHITE BLOOD COUNT (AUTO) 7.4 K/uL (3.6-10.2)
[2020-01-16 05:35] LABS: BILIRUBIN,TOTAL 0.4 mg/dL (0.2-1.0); CREATININE 0.7 mg/dL (0.6-1.3); MAGNESIUM 1.5 mg/dL (1.8-2.4); PHOSPHOROUS 2.3 mg/dL (2.5-4.9); TOTAL PROTEIN, SERUM 6.4 g/dL (6.4-8.2)
[2020-01-16 05:43] LABS: POTASSIUM 2.6 mmol/L (3.5-5.1); THYROID STIMULATING HORMONE 1.304 mIU/mL (0.358-3.740)
[2020-01-16] MEDS ORDERED: METRONIDAZOLE 500 MG/NS 100ML 100 ML IV ONE (06:21)
[2020-01-16] MEDS: MAGNESIUM SULFATE/D5W 100 ML IV SCH ×2 (06:25→08:09)
[2020-01-16] MEDS: METRONIDAZOLE 500 MG/NS 100ML 500 MG in PREMIXED 1 EACH IV SCH ×3 (06:25→21:15)
[2020-01-16] MEDS: POTASSIUM CHLORIDE 50 ML IV SCH ×6 (06:25→11:49)
[2020-01-16] MEDS ORDERED: SODIUM PHOSPHATE MM 7.5 MMOL in IV NORMAL SALINE 100 ML IV ONE (07:00)
[2020-01-16] MEDS ORDERED: levoFLOXacin 500 MG/D5W 100ML PIGGYBACK IV ONE (07:17)
--- NOTE | 2020-01-16 07:30 | NUR ---
RECIEVED PT LYING IN BED, HOB AT 30DEGREES UP. SPEECH IS CLEAR BUT PT SPEAKS MOSLY HUNGARIAN. ORIENTEDX3. ALL EXTREMETIES ARE FLACCID AND GENERALLY WEAK. SR ON THE MONITOR. MAIN IVF D5NS AT 80ML/HR. KCL REPLACEMENTS IS IN PROGRESS K-2.6. MAGNESIUM REPLACEMENT IS IN PROGRESS FOR MAG LEVE OF 1.5. AND PHOSPHATE IVF REPLACEMENT ORDERED IN PROGRESS. NO APPRENT DISTRESS NOTED AT THIS TIME. O2 ON RA AND SATTING 97-100%. ABDOMEN IS DISTENDED BUT SOFT TO TOUCH. BOWEL SOUNDS PRESENT. PT CLAIMING THAT HE IS PASSING OUT GAS. URINE OUTPUT IS GOOD VIA FC FR 16. AFEBRILE.
[2020-01-16] MEDS: PANTOPRAZOLE SODIUM 40 MG VIAL IV SCH (08:12)
[2020-01-16] MEDS: ENOXAPARIN SODIUM 40 MG/0.4 ML DISP.SYRIN SQ SCH (08:19)
--- NOTE | 2020-01-16 08:30 | NUR ---
PT IS COMPLAINING OF ABDOMENAL PAIN AND NAUSEA. MEDICATED WITH ZOFRAN 4MG SLOW IVP. ABLE TO FALL ASLEEP.
[2020-01-16] MEDS: IV D5/ 0.9% NACL 1,000 ML IV PRN ×2 (09:30→20:23)
--- NOTE | 2020-01-16 09:45 | NUR ---
SEEN AND EXAMINED BY ANDRIA POWER DELIVERY ROUTE DRIVER WITH NEW ORDERS. PT STILL NPO.
--- NOTE | 2020-01-16 10:30 | NUR ---
MEDICATED WITH MORPHINE 1MG SLOW IVP FOR C/O ABD PAIN.
[2020-01-16] MEDS ORDERED: METOCLOPRAMIDE HCL 10 MG/2 ML VIAL IV PRN (11:00)
--- NOTE | 2020-01-16 12:30 | NUR ---
PT IS HAVING EPISODE OF SEVERE NERVE SPASMS ON THE LOWER EXTREMETIES AND HEART RATE GOES TACHYCARDIC.
[2020-01-16] MEDS: PHENAZOPYRIDINE HCL 100 MG TABLET PO PRN (15:23)
--- NOTE | 2020-01-16 15:30 | NUR ---
PT IS BEING DOWNGRADED TO TELE PER ANDRIA RIOS.
--- NOTE | 2020-01-16 15:50 | NUR ---
REPORT GIVEN TO HOMER RN.
--- NOTE | 2020-01-16 16:00 | NUR ---
PT IS TRANSFERRED TO [facility] VIA BED. VSS STABLE. CONDITION IS STABLE.
--- NOTE | 2020-01-16 18:30 | NUR ---
Pt is in no acute distress. Call light is within reach.
[2020-01-16] MEDS: levoFLOXacin 500 MG/D5W 500 MG in PREMIXED 1 EACH IV SCH (20:23)
[2020-01-17] VITALS: BP 103/69
[2020-01-17 04:00] VITALS: BP 134/89
--- NOTE | 2020-01-17 04:10 | NUR ---
patient slept intermittently. Ramírez 16fr intact and patent flowing via gravity. urine tea color. PIV and IJ triple lumen noted. all needs met. Abx administered and no ASE. safety precautions provided. bed in lowest position. side rails upx2. disabled call light within reach. v/s stable. on RA. NSR on tele monitor. no s/s of acute distress. NPO remained. will continue to monitor and assess.
[2020-01-17] MEDS: METRONIDAZOLE 500 MG/NS 100ML 500 MG in PREMIXED 1 EACH IV SCH ×2 (05:00→13:17)
[2020-01-17] MEDS: MORPHINE SULFATE 2 MG/1 ML DISP.SYRIN IV PRN (05:00)
--- NOTE | 2020-01-17 05:00 | NUR ---
patient asked for pain medication for pain. went into room to administer and patient refused. wasted.
--- NOTE | 2020-01-17 05:23 | NUR ---
patient refused to have bedsheets changed or any movement with bed due to body darin if moved.
[2020-01-17] MEDS: ONDANSETRON 4 MG/2 ML VIAL IV PRN (06:23)
[2020-01-17 07:15] LABS: CARBON DIOXIDE 22 mmol/L (21-32); CHLORIDE 105 mmol/L (98-107); CREATININE 0.6 mg/dL (0.6-1.3); GLUCOSE 116 mg/dL (74-106); MAGNESIUM 1.9 mg/dL (1.8-2.4); PHOSPHOROUS 2.5 mg/dL (2.5-4.9); POTASSIUM 3.4 mmol/L (3.5-5.1); UREA NITROGEN, BLOOD 3 mg/dL (7-18)
[2020-01-17 07:16] LABS: BASOPHILS # (AUTO) 0.1 K/uL (0.0-8.0); BASOPHILS % (AUTO) 0.8 % (0.0-2.0); EOSINOPHILS # (AUTO) 0.1 K/uL (0.0-0.7); EOSINOPHILS % (AUTO) 1.5 % (0.0-7.0); HEMATOCRIT 43.6 % (36.7-47.1); HEMOGLOBIN 14.4 g/dL (12.5-16.3); LYMPHOCYTES # (AUTO) 2.6 K/uL (20.0-40.0); LYMPHOCYTES % (AUTO) 33.9 % (20.5-51.5); MEAN CORPUSCULAR HEMOGLOBIN 27.9 uug (23.8-33.4); MEAN CORPUSCULAR HGB CONC 33 g/dL (32.5-36.3); MEAN CORPUSCULAR VOLUME 84.2 fL (73.0-96.2); MONOCYTES # (AUTO) 0.5 K/uL (2.0-10.0); MONOCYTES % (AUTO) 6.7 % (0.0-11.0); NEUTROPHILS # (AUTO) 4.4 K/uL (1.8-8.9); NEUTROPHILS % (AUTO) 57.1 % (38.5-71.5); PLATELET COUNT (AUTO) 365 K/uL (152-348); RED BLOOD CELL COUNT(AUTO) 5.17 MIL/uL (4.06-5.63); WHITE BLOOD COUNT (AUTO) 7.8 K/uL (3.6-10.2)
--- NOTE | 2020-01-17 08:00 | NUR ---
received pt. resting in bed alert oriented x4. pt. denies pain/ discomfort. pt. denies sob/ difficulty breathing. pt. denies nausea and feels better after PRN zofran given. Pt. on NPO diet. pt. has IV in L wrist 20 gauge intact patent saline lock. Pt. has internal jugular triple lumen all lumens are patent one lumen is running D5 NS at 80 cc/hr. pt. clean and dry. all needs met. safety measures in place. call light within reach. will continue to monitor pt.
[2020-01-17] MEDS: PANTOPRAZOLE SODIUM 40 MG VIAL IV SCH (08:44)
[2020-01-17] MEDS: ENOXAPARIN SODIUM 40 MG/0.4 ML DISP.SYRIN SQ SCH (08:45)
[2020-01-17] MEDS ORDERED: POTASSIUM CHLORIDE 50 ML IV SCH (10:00)
[2020-01-17] MEDS: IV D5/ 0.9% NACL 1,000 ML IV PRN ×2 (10:34→21:41)
[2020-01-17] MEDS ORDERED: hydrALAZINE HCL 20 MG/1 ML VIAL IV PRN (10:45)
[2020-01-17 11:09] VITALS: BP 127/87
[2020-01-17 11:24] VITALS: BP 174/104
[2020-01-17] MEDS ORDERED: ACETAMINOPHEN 325 MG TABLET PO PRN (13:15)
[2020-01-17] MEDS ORDERED: METOCLOPRAMIDE HCL 10 MG/2 ML VIAL IV PRN (13:45)
[2020-01-17] MEDS: BACLOFEN 20 MG TABLET PO SCH ×2 (14:19→17:14)
[2020-01-17 15:34] VITALS: BP 102/72
[2020-01-17] MEDS ORDERED: BACLOFEN 20 MG TABLET PO SCH (17:00)
[2020-01-17] MEDS: DOCUSATE SODIUM 100 MG CAPSULE PO SCH (17:14)
--- NOTE | 2020-01-17 18:33 | NUR ---
pt. experiencing intense muscle spasms despite given baclofen. BLANCA Palma aware. Pt. complaining of penile pain described as sharp pain inside penile area. Checked arreola catheter. No kinks, draining 1800 cc of clear urine. BLANCA Borja aware pt. is possibly passing kidney stone new order for [place] and to give PRN Pyridium. Will continue to monitor pt. and endorse to PM RN.
[2020-01-17] MEDS ORDERED: HYDROCODONE/APAP 10-325 MG TABLET PO ONE (18:45)
[2020-01-17] MEDS: PHENAZOPYRIDINE HCL 100 MG TABLET PO PRN (18:45)
[2020-01-17 20:22] VITALS: BP 155/83
[2020-01-17] MEDS: FLUCONAZOLE 100 MG TABLET PO SCH (20:43)
[2020-01-17] MEDS: SIMVASTATIN 20 MG TABLET PO SCH (20:43)
[2020-01-17] MEDS: METRONIDAZOLE 500 MG TABLET PO SCH (21:03)
[2020-01-18] VITALS (7 sets, daily range): BP systolic 105–144; BP diastolic 56–96
[2020-01-18] MEDS: HYDROCODONE/APAP 10-325 MG TABLET PO PRN ×2 (04:09→17:34)
[2020-01-18] MEDS: METRONIDAZOLE 500 MG TABLET PO SCH ×3 (05:56→22:14)
--- NOTE | 2020-01-18 06:19 | NUR ---
patient aaox3. no s/s of acute distress. v/s stable. safety precautions provided. IJ triple lumen flushed patient and intact. L wrist PIV intact and patent. 16fr arreola catheter patent and intact flowing via gravity. clear liquid diet remained tolerated well. no episodes of n/v. c/o of pain x1. norco administered and tolerated well. patient informed RN he is feeling better. did not want to have bed sheet changed due to contraction and wanted to be left alone to sleep. will continue to monitor and assess.
[2020-01-18 07:27] LABS: BASOPHILS % (AUTO) 0.6 % (0.0-2.0); EOSINOPHILS # (AUTO) 0.1 K/uL (0.0-0.7); HEMATOCRIT 40.4 % (36.7-47.1); HEMOGLOBIN 13.6 g/dL (12.5-16.3); LYMPHOCYTES # (AUTO) 2.4 K/uL (20.0-40.0); LYMPHOCYTES % (AUTO) 30.8 % (20.5-51.5); MEAN CORPUSCULAR HEMOGLOBIN 28.3 uug (23.8-33.4); MEAN CORPUSCULAR HGB CONC 34 g/dL (32.5-36.3); MONOCYTES # (AUTO) 0.6 K/uL (2.0-10.0); MONOCYTES % (AUTO) 7.5 % (0.0-11.0); NEUTROPHILS # (AUTO) 4.7 K/uL (1.8-8.9); NEUTROPHILS % (AUTO) 60.1 % (38.5-71.5); PLATELET COUNT (AUTO) 342 K/uL (152-348); RED BLOOD CELL COUNT(AUTO) 4.82 MIL/uL (4.06-5.63); WHITE BLOOD COUNT (AUTO) 7.9 K/uL (3.6-10.2)
[2020-01-18 07:43] LABS: CARBON DIOXIDE 23 mmol/L (21-32); CHLORIDE 109 mmol/L (98-107); CREATININE 0.6 mg/dL (0.6-1.3); GLUCOSE 139 mg/dL (74-106); MAGNESIUM 1.8 mg/dL (1.8-2.4); UREA NITROGEN, BLOOD 3 mg/dL (7-18)
--- NOTE | 2020-01-18 08:00 | NUR ---
received pt. resting in bed alert oriented x4. pt. denies pain/ discomfort. pt. denies sob/ difficulty breathing. pt. denies nausea/ vomiting. Pt. on clear liquid diet. pt. has IV in L wrist 20 gauge intact patent saline lock. Pt. has internal jugular triple lumen all lumens are patent one lumen is running D5 NS at 80 cc/hr. pt. clean and dry. all needs met. safety measures in place. call light within reach. will continue to monitor pt.
[2020-01-18 08:01] LABS: POTASSIUM 2.5 mmol/L (3.5-5.1)
--- NOTE | 2020-01-18 08:32 | NUR ---
critical lab value of Potassium is 2.5. WOOL GRADER Huong Palma aware. Telephone order to give 3 bags of KCL now and then in 6 hours another 3 bags. Will put in order.
[2020-01-18] MEDS: PHENAZOPYRIDINE HCL 100 MG TABLET PO PRN (08:57)
[2020-01-18] MEDS: PAROXETINE HCL 20 MG TABLET PO SCH (08:58)
[2020-01-18] MEDS: PANTOPRAZOLE SODIUM 40 MG VIAL IV SCH (08:58)
[2020-01-18] MEDS: AMLODIPINE 5 MG TABLET PO SCH (08:58)
[2020-01-18] MEDS: DOCUSATE SODIUM 100 MG CAPSULE PO SCH ×2 (08:58→16:30)
[2020-01-18] MEDS: BACLOFEN 20 MG TABLET PO SCH ×3 (08:58→16:30)
[2020-01-18] MEDS: ASPIRIN 81 MG TAB.CHEW PO SCH (08:59)
[2020-01-18] MEDS: POTASSIUM CHLORIDE 50 ML IV SCH ×6 (08:59→17:34)
[2020-01-18] MEDS ORDERED: TAMSULOSIN HCL 0.4 MG CAP.SR.24H PO SCH (09:00)
[2020-01-18] MEDS: ENOXAPARIN SODIUM 40 MG/0.4 ML DISP.SYRIN SQ SCH (09:00)
[2020-01-18] MEDS: IV D5/ 0.9% NACL 1,000 ML IV PRN (09:11)
[2020-01-18] MEDS: SIMVASTATIN 20 MG TABLET PO SCH (20:27)
[2020-01-18] MEDS: FLUCONAZOLE 100 MG TABLET PO SCH (20:27)
--- NOTE | 2020-01-18 20:30 | NUR ---
Received Patient HOB was elevated alert x4 Irish speaking no s/s of distress or discomfort at this time, noted with saline lock on left wrist and Rt internal jugular triple lumen patent and intact with D5Ns running at 80cc/hr no s/s of infection.Ramírez catheter fr 16 draining well with clear output, due meds given.Call light within reach .Will continue to monitor.
[2020-01-19 00:12] VITALS: BP 139/96
[2020-01-19] MEDS: IV D5/ 0.9% NACL 1,000 ML IV PRN (03:57)
[2020-01-19 04:00] VITALS: BP 133/57
[2020-01-19] MEDS: METRONIDAZOLE 500 MG TABLET PO SCH ×2 (05:05→13:12)
[2020-01-19] MEDS: HYDROCODONE/APAP 10-325 MG TABLET PO PRN (05:42)
[2020-01-19 06:18] LABS: BASOPHILS # (AUTO) 0.1 K/uL (0.0-8.0); BASOPHILS % (AUTO) 0.8 % (0.0-2.0); EOSINOPHILS # (AUTO) 0.1 K/uL (0.0-0.7); HEMOGLOBIN 13.6 g/dL (12.5-16.3); LYMPHOCYTES # (AUTO) 2.7 K/uL (20.0-40.0); LYMPHOCYTES % (AUTO) 40.2 % (20.5-51.5); MEAN CORPUSCULAR HEMOGLOBIN 27.7 uug (23.8-33.4); MEAN CORPUSCULAR HGB CONC 33 g/dL (32.5-36.3); MEAN CORPUSCULAR VOLUME 83.6 fL (73.0-96.2); MONOCYTES # (AUTO) 0.4 K/uL (2.0-10.0); MONOCYTES % (AUTO) 6.1 % (0.0-11.0); NEUTROPHILS # (AUTO) 3.5 K/uL (1.8-8.9); NEUTROPHILS % (AUTO) 50.9 % (38.5-71.5); PLATELET COUNT (AUTO) 342 K/uL (152-348); RED BLOOD CELL COUNT(AUTO) 4.91 MIL/uL (4.06-5.63); WHITE BLOOD COUNT (AUTO) 6.8 K/uL (3.6-10.2)
--- NOTE | 2020-01-19 06:18 | NUR ---
Patient slept intermittently c/o abd'l pain this morning,PRN medication given with relief.call light with in reach.
[2020-01-19 06:56] LABS: CARBON DIOXIDE 24 mmol/L (21-32); CHLORIDE 108 mmol/L (98-107); CREATININE 0.6 mg/dL (0.6-1.3); GLUCOSE 143 mg/dL (74-106); MAGNESIUM 1.6 mg/dL (1.8-2.4); POTASSIUM 3.3 mmol/L (3.5-5.1); UREA NITROGEN, BLOOD 4 mg/dL (7-18)
[2020-01-19] MEDS: AMLODIPINE 5 MG TABLET PO SCH (09:00)
[2020-01-19] MEDS: DOCUSATE SODIUM 100 MG CAPSULE PO SCH (09:07)
[2020-01-19] MEDS: PANTOPRAZOLE SODIUM 40 MG VIAL IV SCH (09:07)
[2020-01-19] MEDS: BACLOFEN 20 MG TABLET PO SCH ×2 (09:07→13:11)
[2020-01-19] MEDS: PAROXETINE HCL 20 MG TABLET PO SCH (09:07)
[2020-01-19] MEDS: ASPIRIN 81 MG TAB.CHEW PO SCH (09:07)
[2020-01-19] MEDS: ENOXAPARIN SODIUM 40 MG/0.4 ML DISP.SYRIN SQ SCH (09:08)
[2020-01-19] MEDS ORDERED: POTASSIUM CHLORIDE 20 MEQ TAB.PRT.SR PO ONE (09:30)
[2020-01-19] MEDS: MAGNESIUM SULFATE/D5W 100 ML IV SCH ×2 (10:04→13:12)
[2020-01-19] MEDS ORDERED: POTASSIUM CHLORIDE 50 ML IV SCH (10:30)
--- NOTE | 2020-01-19 10:55 | NUR ---
MRI OF THE HEAD SCHEDULED AT [facility] TO P/U AT 1130
[2020-01-19 11:41] VITALS: BP 98/61
[2020-01-19] MEDS ORDERED: HYDR-4384 PO (12:31)
[2020-01-19] MEDS ORDERED: PHEN-894 PO (12:31)
[2020-01-19] MEDS ORDERED: CIPR-262 PO (12:31)
[2020-01-19] MEDS ORDERED: FLUC100T PO (12:31)
[2020-01-19] MEDS ORDERED: METR-147 PO (12:31)
[2020-01-19 15:21] VITALS: BP 97/70
--- NOTE | 2020-01-19 17:24 | NUR ---
picked up by ambulance. belongings list reconciled, skin pics taken. d/c instructions given with the help of staff interpreter lilia he verbalized understanding.
[2020-01-19] MEDS ORDERED: TAMSULOSIN HCL 0.4 MG CAP.SR.24H PO SCH (21:00)
[2020-01-20] MEDS ORDERED: PANTOPRAZOLE SODIUM 40 MG TABLET.DR PO SCH (07:00)
== END 2020-01-19 16:45 | disposition home or self-care (01) | DRG 720 ==
LOC: ER 11:55 → CCU 16:21 → MEDSURG3 01-16 16:00 → TELE3 01-16 18:00 → MEDSURG3 01-19 16:10
PROVIDERS: ADMIT Internal Medicine; ATTEND Registered Nurse
PROC: 02HV33Z Insertion of Infusion Device into Superior Vena Cava, Percutaneous Approach (ICD-10-PCS; principal; 2020-01-15)
PROC: B548ZZA Ultrasonography of Superior Vena Cava, Guidance (ICD-10-PCS; principal; 2020-01-15)
DX: A41.9 Sepsis, unspecified organism (principal); R65.21 Severe sepsis with septic shock; G92 Toxic encephalopathy; N31.9 Neuromuscular dysfunction of bladder, unspecified; G82.50 Quadriplegia, unspecified; S14.106S Unspecified injury at C6 level of cervical spinal cord, sequela; W34.00XS Accidental discharge from unspecified firearms or gun, sequela; B37.49 Other urogenital candidiasis; E78.5 Hyperlipidemia, unspecified; I10 Essential (primary) hypertension; N32.3 Diverticulum of bladder; Z87.440 Personal history of urinary (tract) infections; Z79.82 Long term (current) use of aspirin; Z87.442 Personal history of urinary calculi; K57.30 Diverticulosis of large intestine without perforation or abscess without bleeding; K52.9 Noninfective gastroenteritis and colitis, unspecified; K59.09 Other constipation; K62.89 Other specified diseases of anus and rectum; F32.9 Major depressive disorder, single episode, unspecified; E27.8 Other specified disorders of adrenal gland; N21.0 Calculus in bladder; L89.309 Pressure ulcer of unspecified buttock, unspecified stage; L89.159 Pressure ulcer of sacral region, unspecified stage; N20.0 Calculus of kidney
CPT/HCPCS: 36415; 70030-TC; 71045; 83605; 83690; 83735; 84100; 84443; 85025; 87040; 87086; 93005; A4217; A4663; C9113; G0378; J0360; J0696; J1650; J1956; J2270; J2405; J2543; J2765; J3370; J3475; J3480; J3490; J7030; J7040; J7042; J7050; J7060; Q9967

== ENCOUNTER 2020-02-10 08:36 | Inpatient (IN) | payer OTHER ==
[~2020-02-10] VITALS: Ht 165.1 cm; Wt 65.8 kg
[~2020-02-10 08:36] MED LIST changes: +ACET-2154 PO; -ATOR40TA PO; +CIPR-262 PO; +FLUC100T PO; +HYDR-4384 PO; +METR-147 PO; +PHEN-894 PO; +SIMV-49 PO
[2020-02-10] MEDS ORDERED: IV NORMAL SALINE 1000 ML BAG IV ONE ×2 (09:00→10:45)
[2020-02-10 09:06] LABS: *BILIRUBIN,URIN NEGATIVE (NEGATIVE); *BLOOD, URINE 3+ (NEGATIVE); *CLARITY,URINE TURBID (CLEAR); *COLOR,URINE LIGHT YELLOW (YELLOW); *KETONES,URINE TRACE (NEGATIVE); *UROBILINOGEN,URINE 0.2 E.U./dl (NORMAL); LEUKOCYTE ESTERASE ,URINE 3+ (NEGATIVE); NITRITE, URINE POSITIVE (NEGATIVE); UGLUCOSE NEGATIVE (NEGATIVE)
[2020-02-10 09:41] LABS: BASOPHILS # (AUTO) 0.1 K/uL (0.0-8.0); BASOPHILS % (AUTO) 0.8 % (0.0-2.0); EOSINOPHILS % (AUTO) 0.3 % (0.0-7.0); HEMATOCRIT 39.7 % (36.7-47.1); HEMOGLOBIN 13.2 g/dL (12.5-16.3); LYMPHOCYTES # (AUTO) 1.5 K/uL (20.0-40.0); LYMPHOCYTES % (AUTO) 9.2 % (20.5-51.5); MEAN CORPUSCULAR HEMOGLOBIN 28.7 uug (23.8-33.4); MEAN CORPUSCULAR HGB CONC 33 g/dL (32.5-36.3); MEAN CORPUSCULAR VOLUME 86.1 fL (73.0-96.2); MONOCYTES # (AUTO) 0.7 K/uL (2.0-10.0); MONOCYTES % (AUTO) 4.3 % (0.0-11.0); NEUTROPHILS # (AUTO) 14.4 K/uL (1.8-8.9); NEUTROPHILS % (AUTO) 85.4 % (38.5-71.5); PLATELET COUNT (AUTO) 295 K/uL (152-348); RED BLOOD CELL COUNT(AUTO) 4.61 MIL/uL (4.06-5.63); WHITE BLOOD COUNT (AUTO) 16.8 K/uL (3.6-10.2)
[2020-02-10 09:58] LABS: CREATININE 0.8 mg/dL (0.6-1.3); POTASSIUM 3.5 mmol/L (3.5-5.1)
[2020-02-10 10:04] LABS: BILIRUBIN,DIRECT 0.2 mg/dL (0.0-0.2); BILIRUBIN,TOTAL 0.5 mg/dL (0.2-1.0); TOTAL PROTEIN, SERUM 7.3 g/dL (6.4-8.2)
[2020-02-10] MEDS ORDERED: CEFTRIAXONE /D5W 50ML IVPB **ER PYXIS IV ONE (10:38)
[2020-02-10] MEDS ORDERED: CEFTRIAXONE 1 G in IV DEXTROSE 5% 50 ML IV ONE (10:45)
[2020-02-10 11:40] VITALS: BP 170/70
[2020-02-10 13:39] LABS: RBC,URINE 80-100 /HPF (0-3); WBC,URINE TNTC /HPF (0-3)
[2020-02-10 13:43] LABS: BACTERIA,URINE MODERATE /HPF (NONE SEEN); SQUAMOUS EPITHELIAL CELL,UR FEW /HPF (NONE SEEN)
[2020-02-10] MEDS ORDERED: MORPHINE SULFATE 2 MG/1 ML DISP.SYRIN IV PRN (14:15)
[2020-02-10] MEDS ORDERED: ACETAMINOPHEN 325 MG TABLET PO PRN (14:15)
[2020-02-10] MEDS: ENOXAPARIN SODIUM 40 MG/0.4 ML DISP.SYRIN SQ SCH (15:56)
[2020-02-10 16:00] VITALS: BP 168/85
[2020-02-10] MEDS: HYDROCODONE/APAP 5-325MG TABLET PO PRN (16:03)
[2020-02-10] MEDS: POTASSIUM CHLORIDE 20 MEQ in IV NS 1000 ML 1,000 ML IV PRN (16:26)
[2020-02-10] MEDS: DOCUSATE SODIUM 100 MG CAPSULE PO SCH (17:40)
[2020-02-10 20:19] VITALS: BP 136/57
[2020-02-10] MEDS: TAMSULOSIN HCL 0.4 MG CAP.SR.24H PO SCH (21:04)
[2020-02-11 00:38] VITALS: BP 149/81
[2020-02-11] MEDS: POTASSIUM CHLORIDE 20 MEQ in IV NS 1000 ML 1,000 ML IV PRN ×2 (02:12→15:24)
[2020-02-11 05:27] VITALS: BP 132/73
[2020-02-11] MEDS: PANTOPRAZOLE SODIUM 40 MG TABLET.DR PO SCH (06:11)
[2020-02-11] MEDS: HYDROCODONE/APAP 5-325MG TABLET PO PRN ×2 (06:12→18:32)
[2020-02-11 08:37] LABS: ALANINE AMINOTRANSFERASE 24 U/L (16-63); ALKALINE PHOSPHATASE 99 U/L (50-136); ASPARTATE AMINOTRANSFERASE 12 U/L (15-37); BILIRUBIN,TOTAL 0.5 mg/dL (0.2-1.0); CARBON DIOXIDE 22 mmol/L (21-32); CHLORIDE 107 mmol/L (98-107); CHOLESTEROL 186 mg/dL (<200); CREATININE 0.5 mg/dL (0.6-1.3); GLUCOSE 86 mg/dL (74-106); HDL CHOLESTEROL 32 mg/dL (40-60); MAGNESIUM 2.2 mg/dL (1.8-2.4); PHOSPHOROUS 2.5 mg/dL (2.5-4.9); POTASSIUM 3.6 mmol/L (3.5-5.1); TOTAL PROTEIN, SERUM 6.8 g/dL (6.4-8.2); TRIGLYCERIDES 141 MG/DL (30-150); UREA NITROGEN, BLOOD 7 mg/dL (7-18)
[2020-02-11 09:32] LABS: THYROID STIMULATING HORMONE 1.105 mIU/mL (0.358-3.740)
[2020-02-11 09:41] LABS: BASOPHILS % (AUTO) 0.4 % (0.0-2.0); EOSINOPHILS # (AUTO) 0.1 K/uL (0.0-0.7); EOSINOPHILS % (AUTO) 0.7 % (0.0-7.0); HEMOGLOBIN 12.1 g/dL (12.5-16.3); LYMPHOCYTES # (AUTO) 1.9 K/uL (20.0-40.0); LYMPHOCYTES % (AUTO) 16.3 % (20.5-51.5); MEAN CORPUSCULAR HEMOGLOBIN 29.7 uug (23.8-33.4); MEAN CORPUSCULAR HGB CONC 35 g/dL (32.5-36.3); MEAN CORPUSCULAR VOLUME 85.7 fL (73.0-96.2); MONOCYTES # (AUTO) 0.5 K/uL (2.0-10.0); MONOCYTES % (AUTO) 4.4 % (0.0-11.0); NEUTROPHILS # (AUTO) 9.1 K/uL (1.8-8.9); NEUTROPHILS % (AUTO) 78.2 % (38.5-71.5); PLATELET COUNT (AUTO) 398 K/uL (152-348); RED BLOOD CELL COUNT(AUTO) 4.08 MIL/uL (4.06-5.63); WHITE BLOOD COUNT (AUTO) 11.6 K/uL (3.6-10.2)
[2020-02-11] MEDS: DOCUSATE SODIUM 100 MG CAPSULE PO SCH ×2 (09:49→16:55)
[2020-02-11] MEDS: ENOXAPARIN SODIUM 40 MG/0.4 ML DISP.SYRIN SQ SCH (09:50)
[2020-02-11] MEDS: PAROXETINE HCL 10 MG TABLET PO SCH (09:50)
[2020-02-11] MEDS: CEFTRIAXONE 1 G in IV DEXTROSE 5% 50 ML IV SCH (11:06)
[2020-02-11 11:49] VITALS: BP 139/75
[2020-02-11] MEDS: ONDANSETRON 4 MG/2 ML VIAL IV PRN ×2 (12:29→20:03)
[2020-02-11 15:45] VITALS: BP 124/67
[2020-02-11] MEDS: TAMSULOSIN HCL 0.4 MG CAP.SR.24H PO SCH (20:03)
[2020-02-11] MEDS: ATORVASTATIN 10 MG TABLET PO SCH (20:03)
[2020-02-11] MEDS: MUPIROCIN 2% OINT 22 GM TUBE NS SCH (20:03)
[2020-02-11 20:29] VITALS: BP 142/75
[2020-02-12] VITALS: BP 134/70
[2020-02-12 04:00] VITALS: BP 112/55
[2020-02-12] MEDS: POTASSIUM CHLORIDE 20 MEQ in IV NS 1000 ML 1,000 ML IV PRN ×3 (04:26→18:55)
[2020-02-12] MEDS: HYDROCODONE/APAP 5-325MG TABLET PO PRN ×2 (05:47→14:45)
[2020-02-12] MEDS: PANTOPRAZOLE SODIUM 40 MG TABLET.DR PO SCH (06:24)
[2020-02-12] MEDS ORDERED: BISACODYL 10 MG SUPP.RECT RC PRN (07:30)
[2020-02-12 07:34] LABS: BASOPHILS # (AUTO) 0.1 K/uL (0.0-8.0); BASOPHILS % (AUTO) 0.8 % (0.0-2.0); EOSINOPHILS # (AUTO) 0.1 K/uL (0.0-0.7); EOSINOPHILS % (AUTO) 1.5 % (0.0-7.0); HEMATOCRIT 36.9 % (36.7-47.1); HEMOGLOBIN 12.2 g/dL (12.5-16.3); LYMPHOCYTES # (AUTO) 1.6 K/uL (20.0-40.0); MEAN CORPUSCULAR HEMOGLOBIN 28.3 uug (23.8-33.4); MEAN CORPUSCULAR HGB CONC 33 g/dL (32.5-36.3); MEAN CORPUSCULAR VOLUME 85.7 fL (73.0-96.2); MONOCYTES # (AUTO) 0.3 K/uL (2.0-10.0); MONOCYTES % (AUTO) 4.4 % (0.0-11.0); NEUTROPHILS # (AUTO) 5.2 K/uL (1.8-8.9); NEUTROPHILS % (AUTO) 71.3 % (38.5-71.5); PLATELET COUNT (AUTO) 233 K/uL (152-348); RED BLOOD CELL COUNT(AUTO) 4.31 MIL/uL (4.06-5.63); WHITE BLOOD COUNT (AUTO) 7.3 K/uL (3.6-10.2)
[2020-02-12 07:44] LABS: CARBON DIOXIDE 24 mmol/L (21-32); CHLORIDE 108 mmol/L (98-107); CREATININE 0.5 mg/dL (0.6-1.3); GLUCOSE 89 mg/dL (74-106); MAGNESIUM 2.1 mg/dL (1.8-2.4); POTASSIUM 3.9 mmol/L (3.5-5.1); UREA NITROGEN, BLOOD 5 mg/dL (7-18)
[2020-02-12] MEDS: DOCUSATE SODIUM 100 MG CAPSULE PO SCH ×2 (08:45→16:50)
[2020-02-12] MEDS: PAROXETINE HCL 10 MG TABLET PO SCH (08:45)
[2020-02-12] MEDS: ENOXAPARIN SODIUM 40 MG/0.4 ML DISP.SYRIN SQ SCH (08:46)
[2020-02-12] MEDS: MUPIROCIN 2% OINT 22 GM TUBE NS SCH ×2 (08:47→20:38)
[2020-02-12] MEDS: CEFTRIAXONE 1 G in IV DEXTROSE 5% 50 ML IV SCH (10:58)
[2020-02-12 11:30] VITALS: BP 162/91
[2020-02-12 11:57] VITALS: BP 162/91
[2020-02-12 16:00] VITALS: BP 149/87
[2020-02-12] MEDS: LACTULOSE 20 G/30 ML LIQUID UDC PO PRN (16:50)
[2020-02-12 20:22] VITALS: BP 140/86
[2020-02-12] MEDS: ATORVASTATIN 10 MG TABLET PO SCH (20:38)
[2020-02-12] MEDS: TAMSULOSIN HCL 0.4 MG CAP.SR.24H PO SCH (20:38)
[2020-02-13] MEDS: HYDROCODONE/APAP 5-325MG TABLET PO PRN ×2 (04:17→08:55)
[2020-02-13 04:21] VITALS: BP 123/90
[2020-02-13] MEDS: PANTOPRAZOLE SODIUM 40 MG TABLET.DR PO SCH (06:16)
[2020-02-13] MEDS: POTASSIUM CHLORIDE 20 MEQ in IV NS 1000 ML 1,000 ML IV PRN (06:40)
[2020-02-13] MEDS ORDERED: SULF1TAB48 PO (07:58)
[2020-02-13 08:05] LABS: BASOPHILS % (AUTO) 0.5 % (0.0-2.0); EOSINOPHILS # (AUTO) 0.1 K/uL (0.0-0.7); EOSINOPHILS % (AUTO) 1.9 % (0.0-7.0); HEMATOCRIT 38.8 % (36.7-47.1); LYMPHOCYTES # (AUTO) 1.5 K/uL (20.0-40.0); LYMPHOCYTES % (AUTO) 22.5 % (20.5-51.5); MEAN CORPUSCULAR HEMOGLOBIN 28.7 uug (23.8-33.4); MEAN CORPUSCULAR HGB CONC 33 g/dL (32.5-36.3); MEAN CORPUSCULAR VOLUME 85.9 fL (73.0-96.2); MONOCYTES # (AUTO) 0.4 K/uL (2.0-10.0); MONOCYTES % (AUTO) 5.3 % (0.0-11.0); NEUTROPHILS # (AUTO) 4.8 K/uL (1.8-8.9); NEUTROPHILS % (AUTO) 69.8 % (38.5-71.5); PLATELET COUNT (AUTO) 251 K/uL (152-348); RED BLOOD CELL COUNT(AUTO) 4.52 MIL/uL (4.06-5.63); WHITE BLOOD COUNT (AUTO) 6.8 K/uL (3.6-10.2)
[2020-02-13 08:16] LABS: ALANINE AMINOTRANSFERASE 25 U/L (16-63); ALKALINE PHOSPHATASE 93 U/L (50-136); ASPARTATE AMINOTRANSFERASE 17 U/L (15-37); BILIRUBIN,TOTAL 0.5 mg/dL (0.2-1.0); CARBON DIOXIDE 24 mmol/L (21-32); CHLORIDE 109 mmol/L (98-107); CREATININE 0.5 mg/dL (0.6-1.3); GLUCOSE 91 mg/dL (74-106); LIPASE 140 U/L (73-393); MAGNESIUM 2.2 mg/dL (1.8-2.4); PHOSPHOROUS 3.5 mg/dL (2.5-4.9); POTASSIUM 3.9 mmol/L (3.5-5.1); TOTAL PROTEIN, SERUM 6.8 g/dL (6.4-8.2); UREA NITROGEN, BLOOD 3 mg/dL (7-18)
[2020-02-13] MEDS: PAROXETINE HCL 10 MG TABLET PO SCH (08:52)
[2020-02-13] MEDS: DOCUSATE SODIUM 100 MG CAPSULE PO SCH ×2 (08:52→15:53)
[2020-02-13] MEDS: ENOXAPARIN SODIUM 40 MG/0.4 ML DISP.SYRIN SQ SCH (08:53)
[2020-02-13] MEDS: MUPIROCIN 2% OINT 22 GM TUBE NS SCH (08:53)
[2020-02-13] MEDS ORDERED: Z GUARD REMEDY PASTE 57 GM TUBE TOP PRN (11:15)
[2020-02-13] MEDS: CEFTRIAXONE 1 G in IV DEXTROSE 5% 50 ML IV SCH (11:35)
[2020-02-13 11:46] VITALS: BP 103/73
[2020-02-13] MEDS: LACTULOSE 20 G/30 ML LIQUID UDC PO PRN (15:53)
[2020-02-13 16:00] VITALS: BP 140/74
== END 2020-02-13 17:20 | disposition home health service (06) | DRG 720 ==
LOC: ER 08:36 → TELE3 11:06 → MEDSURG3 02-12 11:35
PROVIDERS: ADMIT Internal Medicine; ATTEND Internal Medicine
DX: A41.9 Sepsis, unspecified organism (principal); N39.0 Urinary tract infection, site not specified; G82.50 Quadriplegia, unspecified; G92 Toxic encephalopathy; K62.89 Other specified diseases of anus and rectum; N31.9 Neuromuscular dysfunction of bladder, unspecified; K56.41 Fecal impaction; K57.30 Diverticulosis of large intestine without perforation or abscess without bleeding; R65.21 Severe sepsis with septic shock; W34.00XS Accidental discharge from unspecified firearms or gun, sequela; Z79.82 Long term (current) use of aspirin; Z87.440 Personal history of urinary (tract) infections; E27.8 Other specified disorders of adrenal gland; I10 Essential (primary) hypertension; E78.5 Hyperlipidemia, unspecified; N21.0 Calculus in bladder; N32.3 Diverticulum of bladder; L89.329 Pressure ulcer of left buttock, unspecified stage; L89.319 Pressure ulcer of right buttock, unspecified stage; L89.159 Pressure ulcer of sacral region, unspecified stage; A04.9 Bacterial intestinal infection, unspecified; S14.156S Other incomplete lesion at C6 level of cervical spinal cord, sequela; B96.20 Unspecified Escherichia coli [E. coli] as the cause of diseases classified elsewhere
CPT/HCPCS: 36415; 70030-TC; 71045; 83605; 83690; 83735; 84100; 84443; 85025; 85730; 87040; 87077; 87086; 93005; A4663; G0378; J0696; J1650; J2270; J2405; J3480; J7030; J7060

== ENCOUNTER 2020-06-02 20:50 | Emergency (ER) | payer OTHER ==
[~2020-06-02] VITALS: Ht 170.2 cm; Wt 77.1 kg
[~2020-06-02 20:50] MED LIST changes: -AMLO5TAB9 PO; -ASPI81TA31 PO; -BACL20TA PO; -CIPR-262 PO; -FLUC100T PO; -METR-147 PO; -PHEN-894 PO
[2020-06-02] MEDS ORDERED: DIAZ10TA4 PO (21:29)
[2020-06-02] MEDS ORDERED: IV NORMAL SALINE 1000 ML BAG IV ONE (21:45)
[2020-06-02] MEDS ORDERED: ONDANSETRON 4 MG/2 ML VIAL IV ONE (21:45)
[2020-06-02 22:30] LABS: BASOPHILS % (AUTO) 0.4 % (0.0-2.0); EOSINOPHILS # (AUTO) 0.1 K/uL (0.0-0.7); EOSINOPHILS % (AUTO) 1.9 % (0.0-7.0); HEMATOCRIT 44.1 % (36.7-47.1); HEMOGLOBIN 14.8 g/dL (12.5-16.3); LYMPHOCYTES # (AUTO) 2.6 K/uL (20.0-40.0); LYMPHOCYTES % (AUTO) 42.2 % (20.5-51.5); MEAN CORPUSCULAR HEMOGLOBIN 28.9 uug (23.8-33.4); MEAN CORPUSCULAR HGB CONC 34 g/dL (32.5-36.3); MEAN CORPUSCULAR VOLUME 86.1 fL (73.0-96.2); MONOCYTES # (AUTO) 0.4 K/uL (2.0-10.0); NEUTROPHILS % (AUTO) 48.5 % (38.5-71.5); PLATELET COUNT (AUTO) 181 K/uL (152-348); RED BLOOD CELL COUNT(AUTO) 5.12 MIL/uL (4.06-5.63); WHITE BLOOD COUNT (AUTO) 6.3 K/uL (3.6-10.2)
[2020-06-02 22:31] LABS: CREATININE 0.7 mg/dL (0.6-1.3); POTASSIUM 3.9 mmol/L (3.5-5.1)
[2020-06-02 22:33] LABS: ABG BASE EXCESS 0.6 mmol/L; ABG HCO3 24.6 mmol/L; ABG PCO2 37.7 mmHg (35.0-45.0); ABG PH 7.433 (7.350-7.450); ABG PO2 68.9 mmHg (75.0-100.0); ABG SITE LEFT RADIAL; ABG TOTAL HEMOGLOBIN 15.3 G/dL (13.5-18.0); VENT MODE Nasal Cannula
[2020-06-02 22:43] LABS: BILIRUBIN,TOTAL 0.6 mg/dL (0.2-1.0); TOTAL PROTEIN, SERUM 7.4 g/dL (6.4-8.2)
[2020-06-02] MEDS ORDERED: SWABABLE VALVE TRANSFER SET EA MC ONE (22:50)
[2020-06-02] MEDS ORDERED: IOHEXOL 300MG/ML 100 ML INFUS..BTL ONE (22:51)
[2020-06-02] MEDS ORDERED: IV NORMAL SALINE 250 ML IV ONE (22:51)
[2020-06-02 22:55] LABS: ABG BASE EXCESS -1.3 mmol/L; ABG HCO3 22.5 mmol/L; ABG PCO2 35.1 mmHg (35.0-45.0); ABG PH 7.424 (7.350-7.450); ABG PO2 81.1 mmHg (75.0-100.0); ABG SITE RIGHT RADIAL; ABG TOTAL HEMOGLOBIN 15.2 G/dL (13.5-18.0); COHb 3.9 % (0.5-1.5); MetHb 0.1 % (0.0-1.5); O2Hb 92.6 % (94.0-97.0); VENT MODE room air
[2020-06-02 23:33] LABS: *BILIRUBIN,URIN NEGATIVE (NEGATIVE); *CLARITY,URINE CLOUDY (CLEAR); *COLOR,URINE YELLOW (YELLOW); *KETONES,URINE 1+ (NEGATIVE); *UROBILINOGEN,URINE 0.2 E.U./dl (NORMAL); LEUKOCYTE ESTERASE ,URINE 3+ (NEGATIVE); NITRITE, URINE POSITIVE (NEGATIVE); PH,URINE >=9.0 (5.0-8.0); UGLUCOSE NEGATIVE (NEGATIVE)
[2020-06-02] MEDS ORDERED: ONDANSETRON 4 MG/2 ML VIAL ONE (23:33)
[2020-06-02 23:35] LABS: *BLOOD, URINE TRACE INTACT (NEGATIVE)
[2020-06-03] MEDS ORDERED: CEFTRIAXONE 1 G in IV DEXTROSE 5% 50 ML IV ONE ×2
[2020-06-03] MEDS ORDERED: CEFTRIAXONE /D5W 50ML IVPB **ER PYXIS IV ONE (00:03)
[2020-06-03] MEDS ORDERED: HYDROCODONE/APAP 5-325MG TABLET PO ONE (01:30)
[2020-06-03] MEDS ORDERED: HYDROCODONE/APAP 5-325MG TABLET ONE (01:35)
--- NOTE | 2020-06-03 01:37 | NUR ---
MSE COMPLETED, PT RECEIVED ALL MEDS PER MD ORDERS, IV D/C'D INTACT, ACI/RX X 1 GIVEN. PT CALLED [facility] FOR TRANSPORT, TOOK ALL BELONGINGS.
[2020-06-03 01:38] VITALS: BP 107/57
[2020-06-03 04:40] LABS: BACTERIA,URINE MANY /HPF (NONE SEEN); SQUAMOUS EPITHELIAL CELL,UR NONE SEEN /HPF (NONE SEEN); WBC,URINE 50-80 /HPF (0-3)
== END 2020-06-03 01:40 | disposition home or self-care (01) ==
LOC: ER 20:50
DX: R10.9 Unspecified abdominal pain (principal); N39.0 Urinary tract infection, site not specified; Z88.1 Allergy status to other antibiotic agents; Z88.8 Allergy status to other drugs, medicaments and biological substances; G82.50 Quadriplegia, unspecified; S14.106S Unspecified injury at C6 level of cervical spinal cord, sequela; X95.9XXS Assault by unspecified firearm discharge, sequela; G89.29 Other chronic pain; Z87.01 Personal history of pneumonia (recurrent); F32.9 Major depressive disorder, single episode, unspecified; Z79.899 Other long term (current) drug therapy
CPT/HCPCS: 36415; 36600 ×2; 74176; 76937; 80053; 81001; 83690; 85025; 87040; 87086 ×2; 96361; 96365; 96375; 99285; J0696; J2405; Q9967; J7030; J7050

== ENCOUNTER 2020-06-14 12:39 | Emergency (ER) | payer OTHER ==
[~2020-06-14] VITALS: Ht 170.2 cm; Wt 77.1 kg
[~2020-06-14 12:39] MED LIST changes: +DIAZ10TA4 PO
[2020-06-14] MEDS ORDERED: HYDROCODONE/APAP 5-325MG TABLET PO ONE (14:15)
[2020-06-14] MEDS ORDERED: IV NORMAL SALINE 250 ML IV ONE (14:21)
[2020-06-14] MEDS ORDERED: IOHEXOL 300MG/ML 100 ML INFUS..BTL ONE (14:21)
[2020-06-14] MEDS ORDERED: HYDROCODONE/APAP 5-325MG TABLET ONE (14:22)
[2020-06-14 14:51] LABS: *BILIRUBIN,URIN NEGATIVE (NEGATIVE); *CLARITY,URINE CLOUDY (CLEAR); *COLOR,URINE YELLOW (YELLOW); *KETONES,URINE NEGATIVE (NEGATIVE); *UROBILINOGEN,URINE 0.2 E.U./dl (NORMAL); LEUKOCYTE ESTERASE ,URINE 1+ (NEGATIVE); NITRITE, URINE NEGATIVE (NEGATIVE); UGLUCOSE NEGATIVE (NEGATIVE)
[2020-06-14 14:57] LABS: *BLOOD, URINE TRACE (NEGATIVE)
[2020-06-14 15:22] LABS: BASOPHILS # (AUTO) 0.1 K/uL (0.0-8.0); BASOPHILS % (AUTO) 0.9 % (0.0-2.0); EOSINOPHILS # (AUTO) 0.1 K/uL (0.0-0.7); HEMATOCRIT 44.2 % (36.7-47.1); HEMOGLOBIN 14.5 g/dL (12.5-16.3); LYMPHOCYTES # (AUTO) 2.3 K/uL (20.0-40.0); LYMPHOCYTES % (AUTO) 28.4 % (20.5-51.5); MEAN CORPUSCULAR HEMOGLOBIN 28.2 uug (23.8-33.4); MEAN CORPUSCULAR HGB CONC 33 g/dL (32.5-36.3); MEAN CORPUSCULAR VOLUME 85.9 fL (73.0-96.2); MONOCYTES # (AUTO) 0.4 K/uL (2.0-10.0); MONOCYTES % (AUTO) 5.2 % (0.0-11.0); NEUTROPHILS # (AUTO) 5.1 K/uL (1.8-8.9); NEUTROPHILS % (AUTO) 64.5 % (38.5-71.5); PLATELET COUNT (AUTO) 245 K/uL (152-348); RED BLOOD CELL COUNT(AUTO) 5.14 MIL/uL (4.06-5.63)
[2020-06-14 16:05] LABS: ALANINE AMINOTRANSFERASE 25 U/L (16-63); ALKALINE PHOSPHATASE 82 U/L (50-136); ASPARTATE AMINOTRANSFERASE 20 U/L (15-37); BILIRUBIN,DIRECT 0.1 mg/dL (0.0-0.2); BILIRUBIN,TOTAL 0.5 mg/dL (0.2-1.0); CARBON DIOXIDE 23 mmol/L (21-32); CHLORIDE 103 mmol/L (98-107); CREATININE 0.5 mg/dL (0.6-1.3); GLUCOSE 83 mg/dL (74-106); LIPASE 215 U/L (73-393); TOTAL PROTEIN, SERUM 7.6 g/dL (6.4-8.2); UREA NITROGEN, BLOOD 16 mg/dL (7-18)
[2020-06-14] MEDS ORDERED: CEFEPIME HCL 2 G in IV DEXTROSE 5% 100 ML IV ONE (16:15)
--- NOTE | 2020-06-14 17:26 | NUR ---
IV removed. Catheter intact and site benign. Pressure and 4x4 gauze applied to site. No bleeding noted.
--- NOTE | 2020-06-14 17:27 | NUR ---
Patient discharged to home in stable condition. Written and verbal after care instructions given. Patient verbalizes understanding of instructions. Stressed follow up or return to ER for worsening s/s.
[2020-06-14 18:37] LABS: BACTERIA,URINE FEW /HPF (NONE SEEN); RBC,URINE 0-3 /HPF (0-3); SQUAMOUS EPITHELIAL CELL,UR FEW /HPF (NONE SEEN); TRIPLE PHOSPHATE CRYSTAL,UR FEW /HPF (NONE SEEN)
== END 2020-06-14 17:40 | disposition home or self-care (01) ==
LOC: ER 12:39
DX: N10 Acute pyelonephritis (principal); D35.02 Benign neoplasm of left adrenal gland; N28.1 Cyst of kidney, acquired; G82.50 Quadriplegia, unspecified; S14.106S Unspecified injury at C6 level of cervical spinal cord, sequela; X95.9XXS Assault by unspecified firearm discharge, sequela; Z87.01 Personal history of pneumonia (recurrent); Z88.1 Allergy status to other antibiotic agents; Z93.6 Other artificial openings of urinary tract status; F32.9 Major depressive disorder, single episode, unspecified; G89.29 Other chronic pain; R10.9 Unspecified abdominal pain; R94.31 Abnormal electrocardiogram [ECG] [EKG]
CPT/HCPCS: 36415; 74177; 80048; 80076; 81001; 83690; 84484; 85025; 87086; 93005; 99285; Q9967; 70030-TC; A4663; C1758; J7050

== ENCOUNTER 2020-07-06 13:12 | Emergency (ER) | payer OTHER ==
[~2020-07-06] VITALS: Ht 180.3 cm; Wt 78.0 kg
[2020-07-06] MEDS ORDERED: IV NORMAL SALINE 1000 ML BAG IV ONE (14:15)
[2020-07-06] MEDS ORDERED: MORPHINE SULFATE 2 MG/1 ML DISP.SYRIN IV ONE (14:15)
[2020-07-06] MEDS ORDERED: ONDANSETRON 4 MG/2 ML VIAL IV ONE (14:15)
--- NOTE | 2020-07-06 14:15 | NUR ---
received pt from trige awake nd alert respiration spont and easy c/o lower abdominal pain for 3 days pt qudraplagia with condum catheter hx UTI SEEN BY DR. Molina order was given
[2020-07-06 14:43] LABS: BASOPHILS % (AUTO) 0.5 % (0.0-2.0); EOSINOPHILS # (AUTO) 0.2 K/uL (0.0-0.7); EOSINOPHILS % (AUTO) 2.7 % (0.0-7.0); HEMOGLOBIN 14.4 g/dL (12.5-16.3); LYMPHOCYTES % (AUTO) 25.4 % (20.5-51.5); MEAN CORPUSCULAR HEMOGLOBIN 28.5 uug (23.8-33.4); MEAN CORPUSCULAR HGB CONC 33 g/dL (32.5-36.3); MEAN CORPUSCULAR VOLUME 86.8 fL (73.0-96.2); MONOCYTES # (AUTO) 0.4 K/uL (2.0-10.0); MONOCYTES % (AUTO) 5.7 % (0.0-11.0); NEUTROPHILS # (AUTO) 5.1 K/uL (1.8-8.9); NEUTROPHILS % (AUTO) 65.7 % (38.5-71.5); PLATELET COUNT (AUTO) 193 K/uL (152-348); RED BLOOD CELL COUNT(AUTO) 5.06 MIL/uL (4.06-5.63); WHITE BLOOD COUNT (AUTO) 7.8 K/uL (3.6-10.2)
[2020-07-06] MEDS ORDERED: ONDANSETRON 4 MG/2 ML VIAL ONE (14:44)
[2020-07-06] MEDS ORDERED: MORPHINE SULFATE 2 MG/1 ML DISP.SYRIN ONE (14:44)
--- NOTE | 2020-07-06 14:45 | NUR ---
seen by Patito order was given inserted ango catheter # 22 on lt wrist ivf ns infused and patent blood drow by lab tach and blood culture x2 and ua and uc sent to lab from condum catheter morphin 2mg and zofran 4mg ivp given
[2020-07-06 14:53] LABS: CARBON DIOXIDE 23 mmol/L (21-32); CHLORIDE 107 mmol/L (98-107); CREATININE 0.4 mg/dL (0.6-1.3); GLUCOSE 116 mg/dL (74-106); POTASSIUM 3.6 mmol/L (3.5-5.1); UREA NITROGEN, BLOOD 17 mg/dL (7-18)
[2020-07-06 14:59] LABS: ALANINE AMINOTRANSFERASE 21 U/L (16-63); ALKALINE PHOSPHATASE 82 U/L (50-136); ASPARTATE AMINOTRANSFERASE 15 U/L (15-37); BILIRUBIN,DIRECT 0.1 mg/dL (0.0-0.2); BILIRUBIN,TOTAL 0.6 mg/dL (0.2-1.0); LIPASE 352 U/L (73-393); TOTAL PROTEIN, SERUM 7.2 g/dL (6.4-8.2)
[2020-07-06 15:11] LABS: *BILIRUBIN,URIN NEGATIVE (NEGATIVE); *BLOOD, URINE NEGATIVE (NEGATIVE); *COLOR,URINE YELLOW (YELLOW); *KETONES,URINE NEGATIVE (NEGATIVE); *UROBILINOGEN,URINE 0.2 E.U./dl (NORMAL); LEUKOCYTE ESTERASE ,URINE 1+ (NEGATIVE); NITRITE, URINE NEGATIVE (NEGATIVE); UGLUCOSE NEGATIVE (NEGATIVE)
[2020-07-06 15:25] LABS: *CLARITY,URINE SLIGHTLY CLOUDY (CLEAR); RBC,URINE 0-3 /HPF (0-3); WBC,URINE 20-50 /HPF (0-3)
[2020-07-06 15:26] LABS: BACTERIA,URINE MODERATE /HPF (NONE SEEN); SQUAMOUS EPITHELIAL CELL,UR FEW /HPF (NONE SEEN); URINE AMORPHOUS PHOSPHATES FEW /HPF
[2020-07-06] MEDS ORDERED: levoFLOXacin 750 MG/D5W 150 ML PIGGYBACK IV ONE (16:30)
[2020-07-06] MEDS ORDERED: levoFLOXacin 750MG/D5W 150 ML IV ONE (16:34)
[2020-07-06 18:07] VITALS: BP 120/61
== END 2020-07-06 19:38 | disposition home or self-care (01) ==
LOC: ER 13:12
DX: N39.0 Urinary tract infection, site not specified (principal); R10.30 Lower abdominal pain, unspecified; Z82.49 Family history of ischemic heart disease and other diseases of the circulatory system; G82.50 Quadriplegia, unspecified; S14.106S Unspecified injury at C6 level of cervical spinal cord, sequela; X95.9XXS Assault by unspecified firearm discharge, sequela; Z87.01 Personal history of pneumonia (recurrent); F32.9 Major depressive disorder, single episode, unspecified; Z88.1 Allergy status to other antibiotic agents; Z88.0 Allergy status to penicillin; Z88.8 Allergy status to other drugs, medicaments and biological substances; Z79.899 Other long term (current) drug therapy
CPT/HCPCS: 36415; 80048; 80076; 81001; 83605; 83690; 85025; 87086; 96365; 96366; 96375; 99284; J1956; J2270; J2405; J7030

== ENCOUNTER 2020-07-31 11:16 | Emergency (ER) | payer OTHER ==
[~2020-07-31] VITALS: Ht 177.8 cm; Wt 77.1 kg
[2020-07-31 11:48] LABS: *BILIRUBIN,URIN NEGATIVE (NEGATIVE); *BLOOD, URINE NEGATIVE (NEGATIVE); *CLARITY,URINE CLOUDY (CLEAR); *COLOR,URINE YELLOW (YELLOW); *KETONES,URINE NEGATIVE (NEGATIVE); *UROBILINOGEN,URINE 0.2 E.U./dl (NORMAL); LEUKOCYTE ESTERASE ,URINE 1+ (NEGATIVE); NITRITE, URINE NEGATIVE (NEGATIVE); PH,URINE >=9.0 (5.0-8.0); UGLUCOSE NEGATIVE (NEGATIVE)
[2020-07-31] MEDS ORDERED: SULF-11 PO (12:09)
[2020-07-31] MEDS ORDERED: SULFAMETH/TRIMETH 800/160 MG TABLET PO ONE (12:15)
--- NOTE | 2020-07-31 12:22 | NUR ---
Patient discharged to home in stable condition via his own motorized wheelchair. Written and verbal after care instructions given to patient. Patient verbalized understanding and compliance of instructions. Stressed follow up with primary doctor or return to ER for worsening s/s.
[2020-07-31] MEDS ORDERED: HYDROCODONE/APAP 10-325 MG TABLET ONE (12:25)
[2020-07-31] MEDS ORDERED: SULFAMETH/TRIMETH 800/160 MG TABLET ONE (12:25)
[2020-07-31] MEDS ORDERED: HYDROCODONE/APAP 10-325 MG TABLET PO ONE (12:30)
[2020-07-31 19:44] LABS: RBC,URINE 0-3 /HPF (0-3)
[2020-07-31 19:46] LABS: SQUAMOUS EPITHELIAL CELL,UR FEW /HPF (NONE SEEN)
== END 2020-07-31 12:24 | disposition home or self-care (01) ==
LOC: ER 11:16
DX: N39.0 Urinary tract infection, site not specified (principal); G82.50 Quadriplegia, unspecified; S14.106S Unspecified injury at C6 level of cervical spinal cord, sequela; X95.9XXS Assault by unspecified firearm discharge, sequela; Z87.440 Personal history of urinary (tract) infections; Z88.0 Allergy status to penicillin; Z88.8 Allergy status to other drugs, medicaments and biological substances; Z99.3 Dependence on wheelchair
CPT/HCPCS: A4663; C1758

== ENCOUNTER 2020-09-19 15:40 | Emergency (ER) | payer OTHER ==
[~2020-09-19] VITALS: Ht 177.8 cm; Wt 77.1 kg
[~2020-09-19 15:40] MED LIST changes: +SULF-11 PO
--- NOTE | 2020-09-19 15:53 | NUR ---
MD at bedside at this time.
[2020-09-19] MEDS ORDERED: CIPR-262 PO (15:56)
[2020-09-19] MEDS ORDERED: CIPROFLOXACIN HCL 250 MG TABLET PO ONE (16:00)
--- NOTE | 2020-09-19 16:00 | NUR ---
URINE FROM LEG BAG SENT TO LAB
[2020-09-19] MEDS ORDERED: CIPROFLOXACIN HCL 250 MG TABLET ONE (16:04)
[2020-09-19] MEDS ORDERED: HYDR-3980 PO (16:12)
[2020-09-19 16:24] LABS: *BILIRUBIN,URIN NEGATIVE (NEGATIVE); *CLARITY,URINE SLIGHTLY CLOUDY (CLEAR); *COLOR,URINE YELLOW (YELLOW); *KETONES,URINE NEGATIVE (NEGATIVE); *UROBILINOGEN,URINE 0.2 E.U./dl (NORMAL); LEUKOCYTE ESTERASE ,URINE 1+ (NEGATIVE); NITRITE, URINE POSITIVE (NEGATIVE); UGLUCOSE NEGATIVE (NEGATIVE)
[2020-09-19 16:29] LABS: *BLOOD, URINE TRACE INTACT (NEGATIVE)
[2020-09-19 18:44] LABS: BACTERIA,URINE MODERATE /HPF (NONE SEEN); SQUAMOUS EPITHELIAL CELL,UR FEW /HPF (NONE SEEN); TRIPLE PHOSPHATE CRYSTAL,UR FEW /HPF (NONE SEEN)
== END 2020-09-19 16:18 | disposition home or self-care (01) ==
LOC: ER 15:41
DX: N39.0 Urinary tract infection, site not specified (principal); Z87.440 Personal history of urinary (tract) infections; Z88.0 Allergy status to penicillin; G82.50 Quadriplegia, unspecified; S14.106S Unspecified injury at C6 level of cervical spinal cord, sequela; Z99.3 Dependence on wheelchair; X95.9XXS Assault by unspecified firearm discharge, sequela; Z79.899 Other long term (current) drug therapy
CPT/HCPCS: 87086; A4663

== ENCOUNTER 2020-11-23 20:56 | Emergency (ER) | payer OTHER ==
[~2020-11-23] VITALS: Ht 177.8 cm; Wt 77.1 kg
[~2020-11-23 20:56] MED LIST changes: +CIPR-262 PO; +HYDR-3980 PO
--- NOTE | 2020-11-23 21:19 | NUR ---
Dr. Martin at bedside to do mse.
--- NOTE | 2020-11-23 21:19 | NUR ---
Pt. chief complaint abdominal pain 12/07 starting 7 days ago. pt. states he was dx with a UTI 7 days ago and prescribed keflex. He is nauseous and unsure if his antibiotics are working. He has a history of colitis. Denies diarrhea.
[2020-11-23] MEDS ORDERED: IV NORMAL SALINE 1000 ML BAG IV ONE (21:30)
[2020-11-23] MEDS ORDERED: ONDANSETRON 4 MG/2 ML VIAL IV ONE (21:30)
[2020-11-23 21:48] LABS: HEMATOCRIT 43.7 % (36.7-47.1); MEAN CORPUSCULAR HEMOGLOBIN 28.8 uug (23.8-33.4); MEAN CORPUSCULAR VOLUME 86.4 fL (73.0-96.2); PLATELET COUNT (AUTO) 291 K/uL (152-348)
[2020-11-23] MEDS ORDERED: ONDANSETRON 4 MG/2 ML VIAL ONE (21:51)
[2020-11-23 21:53] LABS: CREATININE 0.7 mg/dL (0.6-1.3); POTASSIUM 4.2 mmol/L (3.5-5.1)
[2020-11-23 21:59] LABS: BILIRUBIN,DIRECT 0.1 mg/dL (0.0-0.2); BILIRUBIN,TOTAL 0.6 mg/dL (0.2-1.0); TOTAL PROTEIN, SERUM 7.6 g/dL (6.4-8.2)
--- NOTE | 2020-11-23 22:00 | NUR ---
Pt taken to ct
--- NOTE | 2020-11-23 22:30 | NUR ---
pt returned from ct
[2020-11-23 22:52] LABS: *BILIRUBIN,URIN NEGATIVE (NEGATIVE); *CLARITY,URINE SLIGHTLY CLOUDY (CLEAR); *COLOR,URINE YELLOW (YELLOW); *KETONES,URINE 1+ (NEGATIVE); *UROBILINOGEN,URINE 0.2 E.U./dl (NORMAL); LEUKOCYTE ESTERASE ,URINE NEGATIVE (NEGATIVE); NITRITE, URINE NEGATIVE (NEGATIVE); UGLUCOSE NEGATIVE (NEGATIVE)
[2020-11-23 23:01] LABS: *BLOOD, URINE TRACE (NEGATIVE)
[2020-11-23 23:07] LABS: BACTERIA,URINE MANY /HPF (NONE SEEN); RBC,URINE 0-3 /HPF (0-3); SQUAMOUS EPITHELIAL CELL,UR FEW /HPF (NONE SEEN); WBC,URINE 0-3 /HPF (0-3)
[2020-11-23] MEDS ORDERED: ONDANSETRON ODT 4 MG TAB.RAPDIS SL ONE (23:15)
[2020-11-23] MEDS ORDERED: DICYCLOMINE HCL LIQ 10 MG/5 ML UDC ONE (23:21)
[2020-11-23] MEDS ORDERED: ONDANSETRON ODT 4 MG TAB.RAPDIS ONE (23:21)
--- NOTE | 2020-11-23 23:48 | NUR ---
Note undone in EDM - 11/23/20 at 2350 by AUDRA Patient discharged to home in stable condition. Written and verbal after care instructions given. Patient verbalizes understanding of instructions. Stressed follow up or return to ER for worsening s/s. Pt being driven by friend home. Vss. Pt walks with steady gait. All belongings went with pt.
--- NOTE | 2020-11-23 23:49 | NUR ---
Patient discharged to home in stable condition. Written and verbal after care instructions given. Patient verbalizes understanding of instructions. Stressed follow up or return to ER for worsening s/s. Pt arranged transport home, vss. Pt. used own wheelchair to depart. All belongings went with pt.
[2020-11-24] MEDS ORDERED: DICYCLOMINE HCL 20 MG TABLET PO SCH
[2020-11-24 00:01] VITALS: BP 121/75
== END 2020-11-23 23:50 | disposition home or self-care (01) ==
LOC: ER 20:57
DX: R10.32 Left lower quadrant pain (principal); R00.1 Bradycardia, unspecified; I44.0 Atrioventricular block, first degree; Z99.3 Dependence on wheelchair; G82.50 Quadriplegia, unspecified; T14.90XS Injury, unspecified, sequela; W34.00XS Accidental discharge from unspecified firearms or gun, sequela; K52.9 Noninfective gastroenteritis and colitis, unspecified; R11.0 Nausea; Z79.899 Other long term (current) drug therapy; Z88.1 Allergy status to other antibiotic agents; Z88.0 Allergy status to penicillin; E78.00 Pure hypercholesterolemia, unspecified
CPT/HCPCS: 36415; 74176; 80048; 80076; 81001; 83690; 85025; 87086; 93005; 96361; 96374; 99285; J2405; A4663; J7030; Q0162

== ENCOUNTER 2021-01-11 13:07 | Inpatient (IN) | payer OTHER ==
[~2021-01-11] VITALS: Ht 167.6 cm; Wt 53.5 kg
[2021-01-11] MEDS ORDERED: HYDROMORPHONE 1 MG/1 ML DISP.SYRIN IV ONE (13:45)
[2021-01-11] MEDS ORDERED: ACETAMINOPHEN ES 500 MG TABLET PO ONE (13:45)
[2021-01-11] MEDS ORDERED: KETOROLAC TROMETHAMINE 15 MG INJ IVP ONE (13:45)
[2021-01-11] MEDS ORDERED: IV NORMAL SALINE 1000 ML BAG IV ONE (13:45)
[2021-01-11] MEDS ORDERED: ONDANSETRON 4 MG/2 ML VIAL IV ONE (13:45)
[2021-01-11] MEDS ORDERED: CEFEPIME HCL 2 G in IV DEXTROSE 5% 100 ML IV ONE (14:00)
[2021-01-11 14:46] LABS: MEAN CORPUSCULAR VOLUME 87.3 fL (73.0-96.2); PLATELET COUNT (AUTO) 319 K/uL (152-348)
[2021-01-11 14:56] LABS: CREATININE 0.8 mg/dL (0.6-1.3); POTASSIUM 4.6 mmol/L (3.5-5.1)
[2021-01-11] MEDS ORDERED: VANCOMYCIN 1G/D5W 200 ML PIGGYBACK IV ONE (15:00)
[2021-01-11 15:01] LABS: BILIRUBIN,DIRECT 0.1 mg/dL (0.0-0.2); TOTAL PROTEIN, SERUM 8.4 g/dL (6.4-8.2)
[2021-01-11] MEDS ORDERED: HYDROMORPHONE 1 MG/1 ML DISP.SYRIN ONE (15:03)
[2021-01-11] MEDS ORDERED: KETOROLAC TROMETHAMINE 15 MG INJ ONE (15:03)
[2021-01-11] MEDS ORDERED: ONDANSETRON 4 MG/2 ML VIAL ONE (15:03)
[2021-01-11] MEDS ORDERED: ACETAMINOPHEN ES 500 MG TABLET ONE (15:11)
[2021-01-11] MEDS ORDERED: CEFEPIME HCL 1 G VIAL ONE ×2 (15:11→23:29)
[2021-01-11] MEDS ORDERED: IV NS 1000 ML 1,000 ML IV ONE (15:15)
[2021-01-11 15:22] LABS: MAGNESIUM 2.2 mg/dL (1.8-2.4); PHOSPHOROUS 1.9 mg/dL (2.5-4.9)
[2021-01-11 15:25] LABS: THYROID STIMULATING HORMONE 0.682 mIU/mL (0.358-3.740)
[2021-01-11 15:34] LABS: *BILIRUBIN,URIN NEGATIVE (NEGATIVE); *BLOOD, URINE NEGATIVE (NEGATIVE); *CLARITY,URINE SLIGHTLY CLOUDY (CLEAR); *COLOR,URINE LIGHT YELLOW (YELLOW); *KETONES,URINE NEGATIVE (NEGATIVE); *UROBILINOGEN,URINE 0.2 E.U./dl (NORMAL); LEUKOCYTE ESTERASE ,URINE 3+ (NEGATIVE); NITRITE, URINE POSITIVE (NEGATIVE); UGLUCOSE NEGATIVE (NEGATIVE)
[2021-01-11 15:39] LABS: BACTERIA,URINE MANY /HPF (NONE SEEN); SQUAMOUS EPITHELIAL CELL,UR FEW /HPF (NONE SEEN); WBC,URINE 20-50 /HPF (0-3)
[2021-01-11 15:40] LABS: MUCUS,URINE FEW /LPF (0-FEW); URINE AMORPHOUS URATE MODERATE /HPF
[2021-01-11] MEDS ORDERED: DIAZEPAM 10 MG TABLET PO SCH (17:00)
[2021-01-11] MEDS ORDERED: MAGNESIUM HYDROXIDE 30 ML LIQUID UDC PO PRN (17:00)
[2021-01-11] MEDS ORDERED: ACETAMINOPHEN 325 MG TABLET PO PRN (17:00)
[2021-01-11] MEDS ORDERED: HYDROCODONE/APAP 10-325 MG TABLET PO SCH (17:00)
[2021-01-11] MEDS ORDERED: Z GUARD REMEDY PASTE 57 GM TUBE TOP PRN (17:00)
[2021-01-11] MEDS ORDERED: VANCOMYCIN 1000 MG VIAL ONE (17:20)
[2021-01-11] MEDS ORDERED: NEUTRA PHOS PACKET PO ONE (18:00)
[2021-01-11] MEDS: IV NS 1000 ML 1,000 ML IV SCH (20:30)
--- NOTE | 2021-01-11 20:43 | NUR ---
Received report from Allan RUFF .Awake,alert,orented to place, person .RAC#22 Vancomycin, 1 x liter NS given. Quad with electric WC bedside. BP 109/60,P 80, Temp.97.2F resp 20 ALISIA@ RA 100%. Adult incotence garment with external cath to leg bag with 500 clear yellow. Comfort measure x 1. 2040 call Admited to Tele,UTI call with report for room 321 informed by Deonte new room is needed.
[2021-01-11] MEDS ORDERED: SODIUM PHOSPHATE MM 15 MMOL in IV NORMAL SALINE 250 ML IV ONE (21:00)
--- NOTE | 2021-01-11 22:20 | NUR ---
Sumary of care.
[2021-01-11 23:28] VITALS: BP 147/95
[2021-01-11] MEDS: CEFEPIME HCL 2 G in IV DEXTROSE 5% 100 ML IV SCH (23:53)
[2021-01-12] MEDS: IV NS 1000 ML 1,000 ML IV SCH ×3 (02:22→23:48)
[2021-01-12] MEDS: MORPHINE SULFATE 2 MG/1 ML DISP.SYRIN IV PRN ×3 (02:37→22:17)
[2021-01-12 04:55] VITALS: BP 157/95
[2021-01-12] MEDS ORDERED: CEFEPIME HCL 1 G VIAL ONE (06:05)
[2021-01-12] MEDS: CEFEPIME HCL 2 G in IV DEXTROSE 5% 100 ML IV SCH (06:11)
[2021-01-12 06:38] LABS: HEMATOCRIT 34.4 % (36.7-47.1); MEAN CORPUSCULAR VOLUME 88.7 fL (73.0-96.2); PLATELET COUNT (AUTO) 248 K/uL (152-348)
[2021-01-12 06:56] LABS: CARBON DIOXIDE 19 mmol/L (21-32); CHLORIDE 108 mmol/L (98-107); CHOLESTEROL 163 mg/dL (<200); CREATININE 0.5 mg/dL (0.6-1.3); GLUCOSE 78 mg/dL (74-106); HDL CHOLESTEROL 34 mg/dL (40-60); MAGNESIUM 2.2 mg/dL (1.8-2.4); PHOSPHOROUS 3.1 mg/dL (2.5-4.9); POTASSIUM 4.1 mmol/L (3.5-5.1); TRIGLYCERIDES 93 MG/DL (30-150); UREA NITROGEN, BLOOD 18 mg/dL (7-18)
[2021-01-12 08:00] VITALS: BP 149/95
[2021-01-12] MEDS: PAROXETINE HCL 10 MG TABLET PO SCH (08:20)
[2021-01-12] MEDS: DOCUSATE SODIUM 100 MG CAPSULE PO SCH ×2 (08:20→16:35)
[2021-01-12] MEDS: ONDANSETRON 4 MG/2 ML VIAL IV PRN ×2 (08:32→18:51)
[2021-01-12] MEDS ORDERED: TAMSULOSIN HCL 0.4 MG CAP.SR.24H PO SCH (09:00)
[2021-01-12 12:00] VITALS: BP 133/85
[2021-01-12] MEDS ORDERED: BISACODYL 10 MG SUPP.RECT RC ONE (13:45)
[2021-01-12 16:00] VITALS: BP 145/65
[2021-01-12] MEDS: SIMVASTATIN 40 MG TABLET PO SCH ×2 (17:05→17:07)
--- NOTE | 2021-01-12 20:11 | NUR ---
Received patient in bed awake alert and able to make needs known.Moroccan speaking. NSR on Tele .On Ra.Denies SOB.Condom catheter in place draining well with clear yellow urine output. IV on right AC 20g with IVF running well.Adm .IV ATB as ordered.No a/r noted.BM x 1.Call light with in reach.
[2021-01-12 20:46] VITALS: BP 141/84
[2021-01-12] MEDS: CEFEPIME HCL 1 G in IV DEXTROSE 5% 50 ML IV SCH (21:00)
[2021-01-13 00:48] VITALS: BP 123/78
[2021-01-13 04:41] VITALS: BP 126/78
[2021-01-13] MEDS: ONDANSETRON 4 MG/2 ML VIAL IV PRN ×2 (06:12→16:25)
[2021-01-13 06:40] LABS: MEAN CORPUSCULAR HEMOGLOBIN 29.6 uug (23.8-33.4); MEAN CORPUSCULAR VOLUME 87.9 fL (73.0-96.2); PLATELET COUNT (AUTO) 281 K/uL (152-348)
[2021-01-13 06:58] LABS: CARBON DIOXIDE 19 mmol/L (21-32); CHLORIDE 108 mmol/L (98-107); CREATININE 0.4 mg/dL (0.6-1.3); GLUCOSE 91 mg/dL (74-106); POTASSIUM 3.8 mmol/L (3.5-5.1); UREA NITROGEN, BLOOD 7 mg/dL (7-18)
--- NOTE | 2021-01-13 08:00 | NUR ---
First step matress ordered. Skin management implemented. Noted foot drop. wound on left heel noted with serous drainage. Aspiration precaution during feeds. Pt is in no acute distress. Pt denies any c/o pain. Call light is within reach.
[2021-01-13] MEDS: PAROXETINE HCL 10 MG TABLET PO SCH (09:26)
[2021-01-13] MEDS: DOCUSATE SODIUM 100 MG CAPSULE PO SCH ×2 (09:26→16:25)
[2021-01-13] MEDS: CEFEPIME HCL 1 G in IV DEXTROSE 5% 50 ML IV SCH ×2 (09:26→21:52)
[2021-01-13] MEDS: IV NS 1000 ML 1,000 ML IV SCH ×2 (09:27→21:52)
[2021-01-13] MEDS: HYDROCODONE/APAP 10-325 MG TABLET PO PRN (11:09)
[2021-01-13 12:00] VITALS: BP 137/91
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
[2021-01-13 16:00] VITALS: BP 132/99
[2021-01-13] MEDS: SIMVASTATIN 40 MG TABLET PO SCH (16:25)
[2021-01-13] MEDS: MORPHINE SULFATE 2 MG/1 ML DISP.SYRIN IV PRN (16:26)
--- NOTE | 2021-01-13 18:53 | NUR ---
Pt's pain managed with Morphine. Pt is in no acute distress. Call light is within reach.
[2021-01-13 20:00] VITALS: BP 117/73
[2021-01-13] MEDS: TAMSULOSIN HCL 0.4 MG CAP.SR.24H PO SCH (21:53)
--- NOTE | 2021-01-13 23:09 | NUR ---
RECEIVED REPORT FROM AM NURSE PT IS ALERT AND ORIENTED X3 NO SIGNS OF DISTRESS NOTED PT DENIES PAIN MEDICATION GIVEN ORDERED NO SIGNS OF ADVERSE REACTION NOTED. WILL CONTINUE TO MONITOR.
[2021-01-14] MEDS: MORPHINE SULFATE 2 MG/1 ML DISP.SYRIN IV PRN ×2 (01:01→10:45)
[2021-01-14] MEDS: ONDANSETRON 4 MG/2 ML VIAL IV PRN ×2 (01:08→23:47)
[2021-01-14 04:00] VITALS: BP 132/80
[2021-01-14] MEDS: HYDROCODONE/APAP 10-325 MG TABLET PO PRN ×2 (04:57→20:57)
[2021-01-14] MEDS: IV NS 1000 ML 1,000 ML IV SCH ×2 (05:16→15:16)
[2021-01-14] MEDS ORDERED: MEROPENEM 1 G in IV NORMAL SALINE 100 ML IV SCH (06:00)
[2021-01-14 06:27] LABS: HEMATOCRIT 38.4 % (36.7-47.1); MEAN CORPUSCULAR VOLUME 86.7 fL (73.0-96.2); PLATELET COUNT (AUTO) 289 K/uL (152-348)
[2021-01-14 06:37] LABS: CARBON DIOXIDE 23 mmol/L (21-32); CHLORIDE 107 mmol/L (98-107); CREATININE 0.5 mg/dL (0.6-1.3); GLUCOSE 127 mg/dL (74-106); MAGNESIUM 1.9 mg/dL (1.8-2.4); PHOSPHOROUS 2.9 mg/dL (2.5-4.9); POTASSIUM 3.1 mmol/L (3.5-5.1); UREA NITROGEN, BLOOD 4 mg/dL (7-18)
[2021-01-14] MEDS ORDERED: MEROPENEM 1 G VIAL IV ONE (06:38)
[2021-01-14] MEDS: PAROXETINE HCL 10 MG TABLET PO SCH (08:52)
[2021-01-14] MEDS: DOCUSATE SODIUM 100 MG CAPSULE PO SCH ×2 (08:52→16:48)
[2021-01-14] MEDS: POTASSIUM CHLORIDE 50 ML IV SCH ×4 (10:45→14:20)
[2021-01-14] MEDS: SIMETHICONE 40 MG/0.6 ML, 30ML BOTTLE PO PRN (11:15)
[2021-01-14 12:00] VITALS: BP 150/104
[2021-01-14] MEDS: MEROPENEM 1 G in IV NORMAL SALINE 100 ML IV SCH ×2 (14:18→22:43)
--- NOTE | 2021-01-14 15:00 | NUR ---
Marcia here to see pt. PT having spasms and abd pain. PT describes that his stomach is "HOT". Smithicone, Morphine, Zofran given Pt refused the baclofen. PT states that baclofen doesnt worke.
[2021-01-14] MEDS: FAMOTIDINE 20 MG TABLET PO SCH (15:16)
[2021-01-14 16:00] VITALS: BP 143/107
--- NOTE | 2021-01-14 16:00 | NUR ---
Pt spasm relieved. Zofran, Morphine, and Simithicone effective. Pt sleeping.
[2021-01-14] MEDS: ARGININE/GLUTAMINE/CALCIUM BMB 1 EACH POWD.PACK PO SCH (16:48)
[2021-01-14] MEDS: LACTULOSE 20 G/30 ML LIQUID UDC PO PRN (16:48)
[2021-01-14] MEDS: ENSURE ENLIVE (VAN) 240 ML LIQUID PO SCH (16:48)
[2021-01-14] MEDS: SIMVASTATIN 40 MG TABLET PO SCH (16:51)
--- NOTE | 2021-01-14 18:30 | NUR ---
PT is in no acute distress. Call light is within reach.
[2021-01-14] MEDS: TAMSULOSIN HCL 0.4 MG CAP.SR.24H PO SCH (20:57)
[2021-01-14] MEDS: CYCLOBENZAPRINE HCL 10 MG TABLET PO PRN (21:37)
[2021-01-14] MEDS: MORPHINE SULFATE 2 MG/1 ML DISP.SYRIN IM PRN (22:27)
[2021-01-15] MEDS: IV NS 1000 ML 1,000 ML IV SCH ×3 (00:27→21:03)
[2021-01-15] MEDS: MORPHINE SULFATE 2 MG/1 ML DISP.SYRIN IV PRN (03:34)
--- NOTE | 2021-01-15 03:35 | NUR ---
AAOx4 Admitted for UTI. IV ABT given as scheduled. All needs attended. VSS. Patient IV got infiltrated. Patient very hardstick. complained of pain, medicated with Austin then flexeril but wasnt relieve. Morphine 2mg IM given per MD's order. Will monitor patient.All due meds given. #20 gauge on left forearm. IVF's infusing well. No acute distress noted. Condom cath to SD draining yellow urine. I & O monitor. Fall precautions maintained.
[2021-01-15 04:18] VITALS: BP_SYST 109; BP_SYST 150; BP_DIAS 69; BP_DIAS 95
[2021-01-15] MEDS: MEROPENEM 1 G in IV NORMAL SALINE 100 ML IV SCH ×3 (05:23→21:03)
[2021-01-15] MEDS: ONDANSETRON 4 MG/2 ML VIAL IV PRN ×2 (06:19→16:30)
[2021-01-15] MEDS: SIMETHICONE 40 MG/0.6 ML, 30ML BOTTLE PO PRN ×2 (06:47→11:01)
[2021-01-15 06:52] LABS: CREATININE 0.7 mg/dL (0.6-1.3); POTASSIUM 4.5 mmol/L (3.5-5.1)
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
[2021-01-15] MEDS: MORPHINE SULFATE 2 MG/1 ML DISP.SYRIN IM PRN (08:47)
[2021-01-15] MEDS: FAMOTIDINE 20 MG TABLET PO SCH (08:50)
[2021-01-15] MEDS: DOCUSATE SODIUM 100 MG CAPSULE PO SCH ×2 (08:50→16:30)
[2021-01-15] MEDS: PAROXETINE HCL 10 MG TABLET PO SCH (08:50)
[2021-01-15] MEDS: ENSURE ENLIVE (VAN) 240 ML LIQUID PO SCH ×3 (08:52→17:11)
[2021-01-15] MEDS: ARGININE/GLUTAMINE/CALCIUM BMB 1 EACH POWD.PACK PO SCH ×2 (08:52→17:11)
[2021-01-15] MEDS ORDERED: BISACODYL 10 MG SUPP.RECT RC PRN (11:30)
[2021-01-15] MEDS ORDERED: FLEET ENEMA 133 ML BOTTLE RC PRN (11:30)
[2021-01-15] MEDS ORDERED: MAG HYDROX/AL HYDROX/SIMETH 30 ML LIQUID UDC PO PRN (11:45)
[2021-01-15 12:00] VITALS: BP 107/34
[2021-01-15] MEDS: ACIDOPHILUS/BULGARICUS CHEW TAB PO SCH ×3 (12:46→21:04)
[2021-01-15] MEDS: LACTULOSE 20 G/30 ML LIQUID UDC PO PRN (13:23)
[2021-01-15] MEDS: HYDROCODONE/APAP 10-325 MG TABLET PO PRN ×2 (14:11→22:09)
[2021-01-15 15:12] VITALS: BP 128/79
[2021-01-15] MEDS: SIMVASTATIN 40 MG TABLET PO SCH (17:12)
--- NOTE | 2021-01-15 19:30 | NUR ---
RECEIVED PT AWAKE,ALERT AND ORIENTEDX4. PT IN NO ACUTE DISTRESS. PT ON ROOM AIR. MOTHER AT BEDSIDE. SAFETY AND COMFORT PROVIDED. WILL CONTINUE TO MONITOR.
[2021-01-15 20:03] VITALS: BP 114/81
[2021-01-15] MEDS: TAMSULOSIN HCL 0.4 MG CAP.SR.24H PO SCH (20:42)
[2021-01-15] MEDS: CYCLOBENZAPRINE HCL 10 MG TABLET PO PRN (22:10)
[2021-01-16 04:00] VITALS: BP 99/64
[2021-01-16] MEDS: CYCLOBENZAPRINE HCL 10 MG TABLET PO PRN ×2 (04:40→14:26)
[2021-01-16] MEDS: HYDROCODONE/APAP 10-325 MG TABLET PO PRN ×2 (04:40→14:14)
[2021-01-16] MEDS: MEROPENEM 1 G in IV NORMAL SALINE 100 ML IV SCH ×2 (05:28→14:14)
[2021-01-16] MEDS: ACIDOPHILUS/BULGARICUS CHEW TAB PO SCH ×2 (05:28→14:26)
--- NOTE | 2021-01-16 06:07 | NUR ---
PT SLEPT INTERMITTENTLY. PT IN NO ACUTE DISTRESS. IV INTACT. PRESCRIBED MEDICATION GIVEN AND PT TOLERATED IT WELL. NORCO GIVEN AT 2209H [id number] FOR PAIN. FLEXERIL GIVEN [id number] AND [id number] FOR MUSCLE SPASMS.. PT TOLERATED IT WELL. PT TURNED AND REPOSITIONED. SAFETY AND COMFORT PROVIDED. ALL NEEDS ARE MET. WILL ENDORSE TO INCOMING NURSE FOR CONTINUITY OF CARE.
[2021-01-16] MEDS: IV NS 1000 ML 1,000 ML IV SCH ×2 (06:41→16:36)
[2021-01-16] MEDS: FAMOTIDINE 20 MG TABLET PO SCH (09:06)
[2021-01-16] MEDS: ARGININE/GLUTAMINE/CALCIUM BMB 1 EACH POWD.PACK PO SCH ×2 (09:06→16:36)
[2021-01-16] MEDS: PAROXETINE HCL 10 MG TABLET PO SCH (09:06)
[2021-01-16] MEDS: DOCUSATE SODIUM 100 MG CAPSULE PO SCH ×2 (09:06→16:53)
[2021-01-16] MEDS: ENSURE ENLIVE (VAN) 240 ML LIQUID PO SCH ×3 (09:06→16:36)
[2021-01-16 11:06] VITALS: BP 108/62
[2021-01-16] MEDS ORDERED: ACID1TAB4 PO (13:17)
[2021-01-16] MEDS ORDERED: NUTR1PAC14 PO (13:17)
[2021-01-16] MEDS ORDERED: FAMO20TA8 PO (13:17)
[2021-01-16] MEDS ORDERED: NITR100C6 PO (13:17)
[2021-01-16] MEDS ORDERED: [UNRECOGNIZED DRUG - CODE] PO (13:17)
[2021-01-16] MEDS ORDERED: LACT10SO7 PO (13:17)
[2021-01-16] MEDS ORDERED: CYCL10TA9 PO (13:17)
--- NOTE | 2021-01-16 13:26 | NUR ---
nutra phos not administered, suppose to be given in ER on the , however the levels are in range now
[2021-01-16 15:08] VITALS: BP 145/107
[2021-01-16] MEDS: SIMVASTATIN 40 MG TABLET PO SCH (17:00)
--- NOTE | 2021-01-16 18:30 | NUR ---
patient discharged home with family and with amaury, teaching provided, patient verbalized understanding of it, IV access and ID band removed, patient in stable condition, no distress noted, family took all the belongings with them including electric wheelchair, prescription given to patient.
== END 2021-01-16 18:30 | disposition home health service (06) | DRG 720 ==
LOC: ER 13:09 → TELE3 22:40 → MEDSURG3 01-13 10:20
PROVIDERS: ADMIT Family Medicine; ATTEND Nurse Practitioner Acute Care
DX: A41.9 Sepsis, unspecified organism (principal); N17.0 Acute kidney failure with tubular necrosis; E87.2 Acidosis; R53.2 Functional quadriplegia; L89.622 Pressure ulcer of left heel, stage 2; D68.59 Other primary thrombophilia; E83.39 Other disorders of phosphorus metabolism; N39.0 Urinary tract infection, site not specified; F32.9 Major depressive disorder, single episode, unspecified; B96.20 Unspecified Escherichia coli [E. coli] as the cause of diseases classified elsewhere; E78.5 Hyperlipidemia, unspecified; K59.00 Constipation, unspecified; W34.00XS Accidental discharge from unspecified firearms or gun, sequela; Z87.440 Personal history of urinary (tract) infections; Z88.0 Allergy status to penicillin; Z16.12 Extended spectrum beta lactamase (ESBL) resistance; M85.80 Other specified disorders of bone density and structure, unspecified site; Z20.822 Contact with and (suspected) exposure to COVID-19; N40.1 Benign prostatic hyperplasia with lower urinary tract symptoms; Z74.09 Other reduced mobility
CPT/HCPCS: 36415; 70030-TC; 71045; 73630; 74018; 83605; 83690; 83735; 84100; 84443; 85025; 87040; 87070; 87077; 87086; 93005; A4663; A6209; A9150; G0378; J0692; J1170; J1885; J2185; J2270; J2405; J3370; J3480; J3490; J7030; J7050; J7060

== ENCOUNTER 2021-02-09 13:15 | Emergency (ER) | payer OTHER ==
[~2021-02-09] VITALS: Ht 170.2 cm; Wt 53.5 kg
[~2021-02-09 13:15] MED LIST changes: +ACID1TAB4 PO; -CIPR-262 PO; +CYCL10TA9 PO; +FAMO20TA8 PO; +LACT10SO7 PO; +NITR100C6 PO; +NUTR1PAC14 PO; -SULF-11 PO; +[UNRECOGNIZED DRUG - CODE] PO
[2021-02-09] MEDS ORDERED: MORPHINE SULFATE 2 MG/1 ML DISP.SYRIN IV ONE (13:45)
[2021-02-09] MEDS ORDERED: methylPREDNISolone SOD SUCC 125 MG/2 ML VIAL IV ONE (13:45)
[2021-02-09] MEDS ORDERED: diphenhydrAMINE 50 MG/1 ML VIAL IV ONE ×2 (13:45→15:00)
[2021-02-09] MEDS ORDERED: CLINDAMYCIN PHOSPHATE IV 600 MG in IV DEXTROSE 5% 100 ML IV ONE (13:45)
[2021-02-09] MEDS ORDERED: ONDANSETRON 4 MG/2 ML VIAL IV ONE (13:45)
[2021-02-09] MEDS ORDERED: IV NORMAL SALINE 1000 ML BAG IV ONE (13:45)
[2021-02-09] MEDS ORDERED: VANCOMYCIN IV 1,000 MG in IV DEXTROSE 5% 250 ML IV ONE (13:45)
[2021-02-09 14:16] LABS: CREATININE 0.7 mg/dL (0.6-1.3); HEMATOCRIT 35.5 % (36.7-47.1); MEAN CORPUSCULAR HEMOGLOBIN 29.6 uug (23.8-33.4); PLATELET COUNT (AUTO) 297 K/uL (152-348); POTASSIUM 3.6 mmol/L (3.5-5.1)
[2021-02-09] MEDS ORDERED: CLINDAMYCIN PHOSPHATE 600 MG/4 ML VIAL ONE (14:19)
[2021-02-09] MEDS ORDERED: diphenhydrAMINE 50 MG/1 ML VIAL ONE ×2 (14:20→15:51)
[2021-02-09] MEDS ORDERED: methylPREDNISolone SOD SUCC 125 MG/2 ML VIAL ONE (14:20)
[2021-02-09] MEDS ORDERED: VANCOMYCIN IV 200 ML ONE (14:20)
[2021-02-09] MEDS ORDERED: MORPHINE SULFATE 2 MG/1 ML DISP.SYRIN ONE (14:20)
[2021-02-09] MEDS ORDERED: ONDANSETRON 4 MG/2 ML VIAL ONE (14:20)
[2021-02-09] MEDS ORDERED: FAMOTIDINE. 20 MG/2 ML VIAL IV ONE (15:00)
[2021-02-09 15:25] LABS: *BILIRUBIN,URIN NEGATIVE (NEGATIVE); *BLOOD, URINE NEGATIVE (NEGATIVE); *CLARITY,URINE SLIGHTLY CLOUDY (CLEAR); *COLOR,URINE YELLOW (YELLOW); *KETONES,URINE NEGATIVE (NEGATIVE); *UROBILINOGEN,URINE 0.2 E.U./dl (NORMAL); LEUKOCYTE ESTERASE ,URINE 1+ (NEGATIVE); NITRITE, URINE POSITIVE (NEGATIVE); UGLUCOSE NEGATIVE (NEGATIVE)
[2021-02-09 15:31] LABS: BACTERIA,URINE MANY /HPF (NONE SEEN); RBC,URINE 0-3 /HPF (0-3); SQUAMOUS EPITHELIAL CELL,UR FEW /HPF (NONE SEEN); URINE AMORPHOUS PHOSPHATES MANY /HPF; WBC,URINE 20-50 /HPF (0-3); YEAST,URINE MANY /HPF (NONE SEEN)
[2021-02-09] MEDS ORDERED: PANTOPRAZOLE SODIUM 40 MG VIAL ONE (15:51)
[2021-02-09] MEDS ORDERED: DIPH25CA83 PO (17:00)
[2021-02-09] MEDS ORDERED: HYDR-4209 PO (17:00)
[2021-02-09] MEDS ORDERED: PRED20TA PO (17:00)
[2021-02-09] MEDS ORDERED: SULF1TAB48 PO (17:00)
[2021-02-09] MEDS ORDERED: diphenhydrAMINE 25 MG CAP PO ONE (17:32)
--- NOTE | 2021-02-09 17:35 | NUR ---
Removed IV intact, site benign, bandaged. Gave pt RX and d/c instructions, pt verbalized understanding, translated by staff.
== END 2021-02-09 17:55 | disposition home or self-care (01) ==
LOC: ER 13:15
DX: K13.0 Diseases of lips (principal); N39.0 Urinary tract infection, site not specified; Z88.1 Allergy status to other antibiotic agents; Z88.0 Allergy status to penicillin; Z88.8 Allergy status to other drugs, medicaments and biological substances; R53.2 Functional quadriplegia; T14.90XS Injury, unspecified, sequela; W34.00XS Accidental discharge from unspecified firearms or gun, sequela
CPT/HCPCS: 36415; 80048; 81001; 83605; 85025; 87040 ×2; 87086; 96365; 96366; 96367; 96375; 96376; 99284; C9113; J1200 ×2; J2270; J2405; J2930; J3370; J3490; J7060; Q0163; A4663

== ENCOUNTER 2021-03-03 13:40 | Emergency (ER) | payer OTHER ==
[~2021-03-03] VITALS: Ht 170.2 cm; Wt 77.1 kg
[~2021-03-03 13:40] MED LIST changes: +DIPH25CA83 PO; +HYDR-4209 PO; +PRED20TA PO; +SULF1TAB48 PO
[2021-03-03 14:59] LABS: *BILIRUBIN,URIN NEGATIVE (NEGATIVE); *CLARITY,URINE CLOUDY (CLEAR); *COLOR,URINE YELLOW (YELLOW); *KETONES,URINE NEGATIVE (NEGATIVE); *UROBILINOGEN,URINE 0.2 E.U./dl (NORMAL); LEUKOCYTE ESTERASE ,URINE 1+ (NEGATIVE); NITRITE, URINE POSITIVE (NEGATIVE); UGLUCOSE NEGATIVE (NEGATIVE)
[2021-03-03 15:02] LABS: *BLOOD, URINE TRACE (NEGATIVE)
[2021-03-03] MEDS ORDERED: KETOROLAC TROMETHAMINE 60 MG INJ IM ONE (15:15)
[2021-03-03 15:21] LABS: BACTERIA,URINE MANY /HPF (NONE SEEN); SQUAMOUS EPITHELIAL CELL,UR FEW /HPF (NONE SEEN); YEAST,URINE FEW /HPF (NONE SEEN)
[2021-03-03 15:50] LABS: HEMATOCRIT 38.8 % (36.7-47.1); MEAN CORPUSCULAR HEMOGLOBIN 29.3 uug (23.8-33.4); MEAN CORPUSCULAR VOLUME 88.1 fL (73.0-96.2); PLATELET COUNT (AUTO) 286 K/uL (152-348)
[2021-03-03 15:54] LABS: CARBON DIOXIDE 27 mmol/L (21-32); CHLORIDE 103 mmol/L (98-107); CREATININE 0.6 mg/dL (0.6-1.3); GLUCOSE 74 mg/dL (74-106); POTASSIUM 3.9 mmol/L (3.5-5.1); UREA NITROGEN, BLOOD 17 mg/dL (7-18)
[2021-03-03 16:00] LABS: ALANINE AMINOTRANSFERASE 37 U/L (16-63); ALKALINE PHOSPHATASE 106 U/L (50-136); ASPARTATE AMINOTRANSFERASE 22 U/L (15-37); BILIRUBIN,DIRECT 0.1 mg/dL (0.0-0.2); BILIRUBIN,TOTAL 0.4 mg/dL (0.2-1.0); LIPASE 242 U/L (73-393); TOTAL PROTEIN, SERUM 7.5 g/dL (6.4-8.2)
[2021-03-03] MEDS ORDERED: FLUCONAZOLE 100 MG TABLET PO ONE (16:00)
[2021-03-03] MEDS ORDERED: FLUCONAZOLE 100 MG TABLET ONE (16:07)
--- NOTE | 2021-03-03 16:26 | NUR ---
assisstede pt had hospital tray. pt ate with good apetite.
[2021-03-03] MEDS ORDERED: NITROFURANTOIN/NITROFURAN MAC 100 MG CAPSULE PO ONE ×2 (16:30→17:11)
[2021-03-03] MEDS ORDERED: NITR100C11 PO (18:15)
[2021-03-03] MEDS ORDERED: HYDR-4209 PO (18:19)
[2021-03-03 18:26] VITALS: BP 133/77
== END 2021-03-03 18:27 | disposition home or self-care (01) ==
LOC: ER 13:40
DX: N39.0 Urinary tract infection, site not specified (principal); G82.50 Quadriplegia, unspecified; Z87.440 Personal history of urinary (tract) infections; T14.90XS Injury, unspecified, sequela; X95.9XXS Assault by unspecified firearm discharge, sequela; Z88.1 Allergy status to other antibiotic agents; Z88.0 Allergy status to penicillin
CPT/HCPCS: 36415; 70030-TC; 83605; 83690; 85025; 87040; 87077; 87086; 93005; A4663; C1758; J1885

== ENCOUNTER 2021-03-12 17:39 | Emergency (ER) | payer OTHER ==
[~2021-03-12] VITALS: Ht 170.2 cm; Wt 77.1 kg
[2021-03-12] MEDS: HYDROMORPHONE 1 MG/1 ML DISP.SYRIN IV ONE (01:00)
[2021-03-12] MEDS: ONDANSETRON 4 MG/2 ML VIAL IV ONE (01:00)
[~2021-03-12 17:39] MED LIST changes: +NITR100C11 PO
--- NOTE | 2021-03-12 17:45 | NUR ---
Pt was triaged, there are no ER beds available at this time, pt is waiting in ER waiting room.
[2021-03-12 20:25] LABS: HEMATOCRIT 39.7 % (36.7-47.1); MEAN CORPUSCULAR HEMOGLOBIN 29.6 uug (23.8-33.4); PLATELET COUNT (AUTO) 316 K/uL (152-348)
[2021-03-12 20:30] LABS: CARBON DIOXIDE 26 mmol/L (21-32); CHLORIDE 105 mmol/L (98-107); CREATININE 0.6 mg/dL (0.6-1.3); GLUCOSE 87 mg/dL (74-106); UREA NITROGEN, BLOOD 31 mg/dL (7-18)
[2021-03-12 20:35] LABS: ALANINE AMINOTRANSFERASE 48 U/L (16-63); ALKALINE PHOSPHATASE 108 U/L (50-136); ASPARTATE AMINOTRANSFERASE 23 U/L (15-37); BILIRUBIN,DIRECT 0.1 mg/dL (0.0-0.2); BILIRUBIN,TOTAL 0.2 mg/dL (0.2-1.0); LIPASE 351 U/L (73-393); TOTAL PROTEIN, SERUM 7.4 g/dL (6.4-8.2)
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
--- NOTE | 2021-03-12 21:10 | NUR ---
EDMD Dr. Dean at pt bedside for eval. EDMD ordered work up for pt with saline lock, EKG, labs and some medication.
--- NOTE | 2021-03-12 21:30 | NUR ---
IV was attempted on pt twice, both times unsuccessful. Pt has very weak and flimsy veins that are prone to collapse and infiltration. asked fellow nurse Chacorta is he can try gaining IV access. After a few attempts, he was able to gain access on the Rt wrist. Ordered meds given without difficulty or reastion. Pt tolerated well.
[2021-03-12 22:50] LABS: *BILIRUBIN,URIN NEGATIVE (NEGATIVE); *BLOOD, URINE NEGATIVE (NEGATIVE); *CLARITY,URINE SLIGHTLY CLOUDY (CLEAR); *COLOR,URINE DARK YELLOW (YELLOW); *KETONES,URINE NEGATIVE (NEGATIVE); *UROBILINOGEN,URINE 0.2 E.U./dl (NORMAL); LEUKOCYTE ESTERASE ,URINE TRACE (NEGATIVE); NITRITE, URINE POSITIVE (NEGATIVE); PH,URINE 6.5 (5.0-8.0); UGLUCOSE NEGATIVE (NEGATIVE)
[2021-03-12 23:03] LABS: BACTERIA,URINE MANY /HPF (NONE SEEN); RBC,URINE 0-3 /HPF (0-3); SQUAMOUS EPITHELIAL CELL,UR MODERATE /HPF (NONE SEEN); YEAST,URINE FEW /HPF (NONE SEEN)
--- NOTE | 2021-03-13 00:10 | NUR ---
EKG performed and pain meds given via slow IVP. Pt complaining of feeling his BP bottoming out. Pt laid flat, placed on 2L 02. BP check and rechecked. Pt is oxygenating and perfuseing well. No s/sx of distress present.
[2021-03-13] MEDS ORDERED: HYDROMORPHONE 1 MG/1 ML DISP.SYRIN ONE (01:03)
[2021-03-13] MEDS ORDERED: ONDANSETRON 4 MG/2 ML VIAL ONE (01:03)
[2021-03-13] MEDS ORDERED: OXYC-128 PO (01:26)
[2021-03-13] MEDS ORDERED: CEPH500C2 PO (01:26)
[2021-03-13] MEDS ORDERED: FLUC200T PO (01:26)
[2021-03-13] MEDS: OXYCODONE/APAP 5-325 MG TABLET PO ONE (01:30)
[2021-03-13] MEDS: GENTAMICIN SULFATE 80 MG/2 ML VIAL IM ONE (01:30)
[2021-03-13] MEDS ORDERED: OXYCODONE/APAP 5-325 MG TABLET ONE (03:21)
--- NOTE | 2021-03-13 05:00 | NUR ---
Pt given DC instructions and pt confirmed understanding of aftercare and med info. Pt has good color, temp and appearance. VSS, PE WNL, lungs clear, RRR, normal s1s2, oxygenating and perfusing well. denies any pain or nuasea. No s/sx of distress noted.
[2021-03-13 07:32] VITALS: BP 138/84
== END 2021-03-13 05:45 | disposition home or self-care (01) ==
LOC: ER 17:42
DX: N39.0 Urinary tract infection, site not specified (principal); R10.30 Lower abdominal pain, unspecified; Z88.1 Allergy status to other antibiotic agents; Z88.0 Allergy status to penicillin; G82.50 Quadriplegia, unspecified; T14.90XS Injury, unspecified, sequela; X95.9XXS Assault by unspecified firearm discharge, sequela; Z79.899 Other long term (current) drug therapy
CPT/HCPCS: 36415; 74018; 80048; 80076; 81001; 83690; 85025; 86677; 87040; 87086; 93005; 96365; 96366; 96375; 99285; J1170; J2405; A4663

== ENCOUNTER 2021-05-16 08:30 | Inpatient (IN) | payer OTHER ==
[~2021-05-16] VITALS: Ht 160 cm; Wt 70.3 kg
[~2021-05-16 08:30] MED LIST changes: +CEPH500C2 PO; +FLUC200T PO; +OXYC-128 PO
--- NOTE | 2021-05-16 08:36 | NUR ---
DR Trammell at the bedside for MSE.
[2021-05-16] MEDS ORDERED: IV NORMAL SALINE 1000 ML BAG IV ONE (09:00)
[2021-05-16] MEDS ORDERED: CEFTRIAXONE 2 G in IV DEXTROSE 5% 100 ML IV ONE (09:00)
--- NOTE | 2021-05-16 09:00 | NUR ---
Per pt request, ok per provider, straight in and out cath for urine specimen collection complete.
[2021-05-16 09:18] LABS: *BILIRUBIN,URIN NEGATIVE (NEGATIVE); *BLOOD, URINE NEGATIVE (NEGATIVE); *CLARITY,URINE SLIGHTLY CLOUDY (CLEAR); *COLOR,URINE LIGHT YELLOW (YELLOW); *KETONES,URINE NEGATIVE (NEGATIVE); *UROBILINOGEN,URINE 0.2 E.U./dl (NORMAL); LEUKOCYTE ESTERASE ,URINE 2+ (NEGATIVE); NITRITE, URINE POSITIVE (NEGATIVE); UGLUCOSE NEGATIVE (NEGATIVE)
[2021-05-16 09:56] LABS: HEMATOCRIT 38.8 % (36.7-47.1); MEAN CORPUSCULAR HEMOGLOBIN 28.5 uug (23.8-33.4); MEAN CORPUSCULAR VOLUME 86.2 fL (73.0-96.2); PLATELET COUNT (AUTO) 263 K/uL (152-348)
--- NOTE | 2021-05-16 09:57 | NUR ---
Pt transfered onto [facility] with the assistance of ELZBIETA Ibarra and Jeniffer Mendoza. Pt taken for CT scan in stable condition.
[2021-05-16 10:05] LABS: CARBON DIOXIDE 27 mmol/L (21-32); CHLORIDE 105 mmol/L (98-107); CREATININE 0.6 mg/dL (0.6-1.3); GLUCOSE 149 mg/dL (74-106); POTASSIUM 3.8 mmol/L (3.5-5.1); UREA NITROGEN, BLOOD 21 mg/dL (7-18)
[2021-05-16 10:11] LABS: ALANINE AMINOTRANSFERASE 30 U/L (16-63); ALKALINE PHOSPHATASE 102 U/L (50-136); ASPARTATE AMINOTRANSFERASE 22 U/L (15-37); BILIRUBIN,DIRECT 0.1 mg/dL (0.0-0.2); BILIRUBIN,TOTAL 0.3 mg/dL (0.2-1.0); TOTAL PROTEIN, SERUM 7.2 g/dL (6.4-8.2)
--- NOTE | 2021-05-16 10:15 | NUR ---
Back from CT. Continues to be stable. Resumed IV fluids.
[2021-05-16] MEDS ORDERED: diphenhydrAMINE 50 MG/1 ML VIAL ONE (10:41)
[2021-05-16] MEDS ORDERED: FAMOTIDINE. 20 MG/2 ML VIAL IV ONE ×2 (10:42→10:45)
[2021-05-16] MEDS ORDERED: methylPREDNISolone SOD SUCC 125 MG/2 ML VIAL ONE (10:42)
[2021-05-16] MEDS ORDERED: METOCLOPRAMIDE HCL 10 MG/2 ML VIAL IV ONE (10:45)
[2021-05-16] MEDS ORDERED: methylPREDNISolone SOD SUCC 125 MG/2 ML VIAL IV ONE (10:45)
[2021-05-16] MEDS ORDERED: diphenhydrAMINE 50 MG/1 ML VIAL IV ONE (10:45)
--- NOTE | 2021-05-16 10:45 | NUR ---
Shortly after beginning ABX IV pt C/O nausea, itching, vomit (x1). Stopped Abx immediately connected pt to monitor and placed in trendelenburg. Continued to bolus IV NS. Provider then became available, gave verbal orders for IV medication. Pt states improvement in symptoms shortly after administration. Pt alert/arrousable to stimuli, placed on 2L O2 due to desaturation to 94%. Provider aware and at bedside.
[2021-05-16] MEDS ORDERED: METOCLOPRAMIDE HCL 10 MG/2 ML VIAL ONE (10:47)
--- NOTE | 2021-05-16 11:18 | NUR ---
Pt states resolution of S/S from reaction. O2 removed for tolerance test. Pt SpO2 97% on RA. Will reassess. 2L NS complete. Started the final 200mL.
--- NOTE | 2021-05-16 11:26 | NUR ---
Tolerating removal of O2. Sustained SpO2 @ 97% RA.
--- NOTE | 2021-05-16 13:45 | NUR ---
Condom cath not working properly. Cleaned pt and replaced with a new one.
[2021-05-16] MEDS ORDERED: CLONIDINE HCL 0.2 MG TABLET ONE (14:55)
[2021-05-16] MEDS ORDERED: HYDROMORPHONE 1 MG/1 ML DISP.SYRIN IV ONE (15:15)
[2021-05-16] MEDS ORDERED: CLONIDINE HCL 0.2 MG TABLET PO ONE (15:15)
[2021-05-16] MEDS ORDERED: ONDANSETRON 4 MG/2 ML VIAL IV ONE (15:15)
[2021-05-16 15:51] LABS: BACTERIA,URINE MODERATE /HPF (NONE SEEN); RBC,URINE NONE SEEN /HPF (0-3)
--- NOTE | 2021-05-16 15:53 | NUR ---
Report given to ELZBIETA Garrison. Pt will be transported via [facility] to Rm [id number].
[2021-05-16] MEDS ORDERED: LACTULOSE 20 G/30 ML LIQUID UDC PO PRN (16:15)
[2021-05-16] MEDS ORDERED: CYCLOBENZAPRINE HCL 10 MG TABLET PO PRN (16:15)
[2021-05-16] MEDS ORDERED: ONDANSETRON 4 MG/2 ML VIAL IV PRN (16:15)
[2021-05-16] MEDS ORDERED: SIMETHICONE 80 MG TAB.CHEW PO PRN (16:15)
[2021-05-16] MEDS ORDERED: Z GUARD REMEDY PASTE 57 GM TUBE TOP PRN (16:15)
[2021-05-16] MEDS ORDERED: MORPHINE SULFATE 2 MG/1 ML DISP.SYRIN IV PRN (16:15)
--- NOTE | 2021-05-16 16:20 | NUR ---
Pt hand-off at bedside with ELZBIETA Garrison.
--- NOTE | 2021-05-16 16:50 | NUR ---
Received patient from ED via [facility] [facility] [facility]. AOx4. On room air. No signs of acute distress. With condom catheter draining yellow, clear urine. IV access on AC #20. NSR on chalk machine operator. Patient denies pain/ discomfort at this time. Oriented patient to unit and room. Patient made comfortable. Vital signs taken. Bed alarm on for safety. Call light within reach. Will continue to monitor.
[2021-05-16] MEDS: IV 1/2NS 1000 ML 1,000 ML IV PRN (16:57)
[2021-05-16] MEDS: DOCUSATE SODIUM 100 MG CAPSULE PO SCH (17:09)
[2021-05-16] MEDS: ENOXAPARIN SODIUM 40 MG/0.4 ML DISP.SYRIN SQ SCH (17:10)
[2021-05-16 17:20] VITALS: BP 72/42
[2021-05-16] MEDS: ARGININE/GLUTAMINE/CALCIUM BMB 1 EACH POWD.PACK PO SCH (18:00)
--- NOTE | 2021-05-16 18:58 | NUR ---
Patient resting comfortably in bed with no apparent signs of distress or discomfort. Specialized call light within reach, due to Quadriplegic state. Bed left in the lowest position. Comfort measures provided. Order put in for Midline insertion for patient due to IV site infiltration upon arrival. Will endorse to talent development director nurse.
[2021-05-16 19:36] VITALS: BP 85/47
[2021-05-16 20:00] VITALS: BP 90/50
[2021-05-16] MEDS: ACIDOPHILUS/BULGARICUS CHEW TAB PO SCH (20:17)
[2021-05-16] MEDS: levoFLOXacin 750MG/D5W 750 MG in PREMIXED 1 EACH IV SCH (20:17)
[2021-05-16] MEDS: SIMVASTATIN 40 MG TABLET PO SCH (20:17)
[2021-05-17] VITALS: BP 131/66
[2021-05-17 04:00] VITALS: BP 98/36
[2021-05-17] MEDS: ACIDOPHILUS/BULGARICUS CHEW TAB PO SCH ×3 (06:39→22:25)
[2021-05-17] MEDS: PANTOPRAZOLE SODIUM 40 MG TABLET.DR PO SCH (06:39)
[2021-05-17 07:10] LABS: HEMATOCRIT 33.3 % (36.7-47.1); MEAN CORPUSCULAR HEMOGLOBIN 28.2 uug (23.8-33.4); MEAN CORPUSCULAR VOLUME 86.5 fL (73.0-96.2); PLATELET COUNT (AUTO) 232 K/uL (152-348)
[2021-05-17 07:13] LABS: CARBON DIOXIDE 25 mmol/L (21-32); CHLORIDE 106 mmol/L (98-107); CREATININE 0.6 mg/dL (0.6-1.3); GLUCOSE 105 mg/dL (74-106); MAGNESIUM 2.1 mg/dL (1.8-2.4); PHOSPHOROUS 3.1 mg/dL (2.5-4.9); POTASSIUM 3.7 mmol/L (3.5-5.1); UREA NITROGEN, BLOOD 22 mg/dL (7-18)
--- NOTE | 2021-05-17 08:00 | NUR ---
AWAKE ALERT AND VERBALLY RESPONSIVE, RESTING COMFORTABLY IN BED EXCEPT FOR CONSTIPATION, REFUSED CEPHALUC WHEN OFFERED 'IT GIVES ME STOMACH PAIN'. SR ON MONITOR
[2021-05-17] MEDS: TAMSULOSIN HCL 0.4 MG CAP.SR.24H PO SCH (08:42)
[2021-05-17] MEDS: PAROXETINE HCL 10 MG TABLET PO SCH (08:42)
[2021-05-17] MEDS: DOCUSATE SODIUM 100 MG CAPSULE PO SCH ×2 (08:42→16:03)
[2021-05-17] MEDS: ENOXAPARIN SODIUM 40 MG/0.4 ML DISP.SYRIN SQ SCH (08:46)
[2021-05-17] MEDS: ARGININE/GLUTAMINE/CALCIUM BMB 1 EACH POWD.PACK PO SCH ×2 (08:46→16:04)
[2021-05-17] MEDS ORDERED: BISACODYL 10 MG SUPP.RECT RC PRN (11:30)
--- NOTE | 2021-05-17 12:00 | NUR ---
NO ACUTE CHANGE FROM MORNING ASSESSMENT, WILL ADMINISTER SUPPOSITORY PENDING MD ORDER
[2021-05-17 12:08] VITALS: BP 145/95
--- NOTE | 2021-05-17 15:53 | NUR ---
SEEN BY HOSPITALIST C/O CONSTIPATION DULCOLAX SUPPOSITORY ADMINISTERED WITH GOOD RESULTS
[2021-05-17 16:00] VITALS: BP 91/56
[2021-05-17] MEDS: levoFLOXacin 750MG/D5W 750 MG in PREMIXED 1 EACH IV SCH (16:02)
[2021-05-17] MEDS: ACETAMINOPHEN 325 MG TABLET PO PRN (16:03)
[2021-05-17] MEDS: IV 1/2NS 1000 ML 1,000 ML IV PRN (16:03)
--- NOTE | 2021-05-17 17:29 | NUR ---
LOW GRADE FEVER 100.3 ORALLY TYLENOL GIVEN ORDERED
[2021-05-17 20:23] VITALS: BP 123/78
[2021-05-17] MEDS: SIMVASTATIN 40 MG TABLET PO SCH (20:28)
[2021-05-17] MEDS: MORPHINE SULFATE 4 MG/1 ML DISP.SYRIN IV PRN (22:34)
[2021-05-17] MEDS: DIAZEPAM 10 MG TABLET PO PRN (23:35)
[2021-05-18 00:53] VITALS: BP 115/66
[2021-05-18 04:48] VITALS: BP 113/69
[2021-05-18] MEDS: ACIDOPHILUS/BULGARICUS CHEW TAB PO SCH ×3 (05:57→21:43)
[2021-05-18] MEDS: PANTOPRAZOLE SODIUM 40 MG TABLET.DR PO SCH (05:58)
--- NOTE | 2021-05-18 08:00 | NUR ---
PATIENT IN BED WITH EYES CLOSED. NO SIGNS AND SYMPTOMS OF STRESS. DENIES ANY PAIN. SINUS RYTHM ON MONITOR AFEBRILE. NO SIGNS OF HYPOTENSION. ASSISTED WITH BREAKFAST AND CONSUMED 100% OF FOOD.
[2021-05-18] MEDS: ENOXAPARIN SODIUM 40 MG/0.4 ML DISP.SYRIN SQ SCH (08:12)
[2021-05-18] MEDS: DOCUSATE SODIUM 100 MG CAPSULE PO SCH ×2 (08:12→17:22)
[2021-05-18] MEDS: TAMSULOSIN HCL 0.4 MG CAP.SR.24H PO SCH (08:12)
[2021-05-18] MEDS: PAROXETINE HCL 10 MG TABLET PO SCH (08:13)
[2021-05-18] MEDS: ARGININE/GLUTAMINE/CALCIUM BMB 1 EACH POWD.PACK PO SCH ×2 (08:15→17:22)
[2021-05-18 08:18] VITALS: BP 127/86
[2021-05-18] MEDS: IV 1/2NS 1000 ML 1,000 ML IV PRN ×2 (09:19→23:25)
[2021-05-18 12:01] VITALS: BP 121/75
[2021-05-18 12:36] LABS: *BILIRUBIN,URIN NEGATIVE (NEGATIVE); *BLOOD, URINE NEGATIVE (NEGATIVE); *CLARITY,URINE CLEAR (CLEAR); *COLOR,URINE YELLOW (YELLOW); *KETONES,URINE NEGATIVE (NEGATIVE); *UROBILINOGEN,URINE 0.2 E.U./dl (NORMAL); LEUKOCYTE ESTERASE ,URINE 2+ (NEGATIVE); NITRITE, URINE NEGATIVE (NEGATIVE); UGLUCOSE NEGATIVE (NEGATIVE)
[2021-05-18] MEDS: PROTEIN SUPPLEMENT (PROSTAT) 30 ML LIQUID PO SCH ×2 (15:00→17:23)
[2021-05-18 15:40] VITALS: BP 99/65
--- NOTE | 2021-05-18 16:12 | NUR ---
endorsed by previous nurse. received in bed being changed by acid loader. no acute distress. denies pain or sob. iv hydration ongoing and tolerated. patient in pleasant mood. needs attended. kept comfortable. call light in reach. cont to monitor. Addendum: 05/18/21 at 1613 by DIA GALLARDO RN sr on monitor.
[2021-05-18] MEDS: levoFLOXacin 750 MG TABLET PO SCH (17:22)
[2021-05-18 17:46] LABS: BACTERIA,URINE FEW /HPF (NONE SEEN); RBC,URINE 0-3 /HPF (0-3); SQUAMOUS EPITHELIAL CELL,UR FEW /HPF (NONE SEEN)
[2021-05-18 17:47] LABS: MUCUS,URINE FEW /LPF (0-FEW)
[2021-05-18] MEDS: ACETAMINOPHEN 325 MG TABLET PO PRN (18:26)
--- NOTE | 2021-05-18 18:33 | NUR ---
tylenol 650mg given as ordered for low grade temp 99.4. cont ot monitor. alert and oriented no sob. sr on telemonitor. condom catheter intact and patent clear yellow urine in the bag. no hematuria noted. kept comfortable. call light in reach.
--- NOTE | 2021-05-18 19:30 | NUR ---
Received pt awake, alert and orientedx4. Pt in no acute distress. Iv intact.Pt on room air. Pt has condom catheter. Safety and comfort provided. Will continue to monitor.
[2021-05-18] MEDS: MORPHINE SULFATE 4 MG/1 ML DISP.SYRIN IV PRN (20:32)
--- NOTE | 2021-05-18 20:32 | NUR ---
Pt given morphine 4mg at 203h for generalized pain. Pt tolerated it well. Will continue to monitor.
[2021-05-18 21:41] VITALS: BP 114/80
[2021-05-18] MEDS: SIMVASTATIN 40 MG TABLET PO SCH (21:43)
--- NOTE | 2021-05-18 22:00 | NUR ---
After an hour pt stating he felt better. Pt tolerated it well . Will continue to monitor.
[2021-05-18] MEDS: DIAZEPAM 10 MG TABLET PO PRN (23:20)
--- NOTE | 2021-05-19 01:30 | NUR ---
Pt was given Valium 10mg at 2320h . After an hour pt calmer and stating he felt better. Will continue to monitor.
[2021-05-19] MEDS: ACIDOPHILUS/BULGARICUS CHEW TAB PO SCH ×2 (05:47→14:09)
[2021-05-19] MEDS: PANTOPRAZOLE SODIUM 40 MG TABLET.DR PO SCH (06:04)
--- NOTE | 2021-05-19 06:14 | NUR ---
Pt slept intermittently. Pt turned and repositioned. Pt in no acute distress. Pt on room air. Iv intact.Pt stable.Pt on sinus rhythm. Condom catheter intact and draining well. Safety and comfort provided. Prescribed medication given and pt tolerated it well. All needs are met. Will endorse to incoming nurse for continuity of care.
[2021-05-19 06:51] LABS: HEMATOCRIT 35.7 % (36.7-47.1); MEAN CORPUSCULAR HEMOGLOBIN 28.6 uug (23.8-33.4); MEAN CORPUSCULAR VOLUME 86.7 fL (73.0-96.2); PLATELET COUNT (AUTO) 219 K/uL (152-348)
[2021-05-19 07:23] LABS: CARBON DIOXIDE 30 mmol/L (21-32); CHLORIDE 105 mmol/L (98-107); CREATININE 0.5 mg/dL (0.6-1.3); GLUCOSE 89 mg/dL (74-106); POTASSIUM 3.9 mmol/L (3.5-5.1); UREA NITROGEN, BLOOD 23 mg/dL (7-18)
--- NOTE | 2021-05-19 08:19 | NUR ---
Received report from overnight stocker nurse. Arrived to patient sleeping, resting comfortably with no signs of distress or discomfort. Comfort measures provided. IV site L. Midline running at 75 cc/hr. Line is intact and patent. Bed left in lowest position with modified call light within reach. Will continue to monitor patient throughout shift.
[2021-05-19] MEDS: TAMSULOSIN HCL 0.4 MG CAP.SR.24H PO SCH (08:38)
[2021-05-19] MEDS: PAROXETINE HCL 10 MG TABLET PO SCH (08:38)
[2021-05-19] MEDS: DOCUSATE SODIUM 100 MG CAPSULE PO SCH ×2 (08:38→16:16)
[2021-05-19] MEDS: ENOXAPARIN SODIUM 40 MG/0.4 ML DISP.SYRIN SQ SCH (08:40)
[2021-05-19] MEDS: PROTEIN SUPPLEMENT (PROSTAT) 30 ML LIQUID PO SCH ×2 (08:43→16:17)
[2021-05-19] MEDS: ARGININE/GLUTAMINE/CALCIUM BMB 1 EACH POWD.PACK PO SCH ×2 (08:44→16:17)
[2021-05-19 11:23] VITALS: BP 120/69
[2021-05-19] MEDS ORDERED: LEVO750T46 PO (14:44)
[2021-05-19 15:34] VITALS: BP 166/92
[2021-05-19] MEDS: levoFLOXacin 750 MG TABLET PO SCH (16:16)
--- NOTE | 2021-05-19 17:23 | NUR ---
Patient is now discharged. Patient was in no apparent distress or discomfort. IV site removed. ID tag removed. Patient notified of discharge education, following up with primary care doctor within 1-2 weeks, and to complete course of antibiotics.
== END 2021-05-19 16:50 | disposition home or self-care (01) | DRG 720 ==
LOC: ER 08:30 → TELE3 15:52 → MEDSURG3 05-19 10:00
PROVIDERS: ADMIT Nurse Practitioner Family; ATTEND Nurse Practitioner Family
PROC: 05H633Z Insertion of Infusion Device into Left Subclavian Vein, Percutaneous Approach (ICD-10-PCS; principal; 2021-05-17)
PROC: B547ZZA Ultrasonography of Left Subclavian Vein, Guidance (ICD-10-PCS; principal; 2021-05-17)
DX: A41.9 Sepsis, unspecified organism (principal); R53.2 Functional quadriplegia; G25.3 Myoclonus; N39.0 Urinary tract infection, site not specified; E78.5 Hyperlipidemia, unspecified; J98.11 Atelectasis; N28.1 Cyst of kidney, acquired; Z87.440 Personal history of urinary (tract) infections; Z20.822 Contact with and (suspected) exposure to COVID-19; M24.542 Contracture, left hand; M24.541 Contracture, right hand; N31.9 Neuromuscular dysfunction of bladder, unspecified; N39.498 Other specified urinary incontinence; I10 Essential (primary) hypertension; N40.1 Benign prostatic hyperplasia with lower urinary tract symptoms; F32.A Depression, unspecified; Y23.0XXS Shotgun discharge, undetermined intent, sequela; T36.1X5A Adverse effect of cephalosporins and other beta-lactam antibiotics, initial encounter; Y92.238 Other place in hospital as the place of occurrence of the external cause
CPT/HCPCS: 36415; 70030-TC; 71045; 83605; 83690; 83735; 84100; 85025; 85730; 87040; 87086; 93005; 97161; A4663; A6209; C1758; G0378; J0696; J1200; J1650; J1956; J2270; J2405; J2765; J2930; J3490; J7030; J7050; J7060

== ENCOUNTER 2021-06-16 09:35 | Emergency (ER) | payer OTHER ==
[~2021-06-16] VITALS: Ht 160 cm; Wt 70.3 kg
[~2021-06-16 09:35] MED LIST changes: -CEPH500C2 PO; -FLUC200T PO; +LEVO750T46 PO; -NITR100C11 PO; -NITR100C6 PO; -OXYC-128 PO; -PRED20TA PO; -SULF1TAB48 PO
[2021-06-16 10:21] LABS: *BILIRUBIN,URIN NEGATIVE (NEGATIVE); *BLOOD, URINE NEGATIVE (NEGATIVE); *CLARITY,URINE SLIGHTLY CLOUDY (CLEAR); *COLOR,URINE LIGHT YELLOW (YELLOW); *KETONES,URINE NEGATIVE (NEGATIVE); *UROBILINOGEN,URINE 0.2 E.U./dl (NORMAL); LEUKOCYTE ESTERASE ,URINE 1+ (NEGATIVE); NITRITE, URINE POSITIVE (NEGATIVE); UGLUCOSE NEGATIVE (NEGATIVE)
[2021-06-16] MEDS ORDERED: IV NORMAL SALINE 1000 ML BAG IV ONE (10:30)
[2021-06-16] MEDS ORDERED: PHENAZOPYRIDINE HCL 100 MG TABLET PO ONE (11:00)
[2021-06-16] MEDS ORDERED: levoFLOXacin 750 MG TABLET PO ONE (11:00)
[2021-06-16] MEDS ORDERED: PHEN-705 PO (11:02)
[2021-06-16] MEDS ORDERED: LEVO750T46 PO ×2 (11:02→11:20)
[2021-06-16] MEDS ORDERED: levoFLOXacin 750 MG TABLET ONE (11:24)
[2021-06-16 11:25] VITALS: BP 103/53
[2021-06-16] MEDS ORDERED: PHENAZOPYRIDINE HCL 100 MG TABLET ONE (11:26)
[2021-06-16 16:29] LABS: BACTERIA,URINE MODERATE /HPF (NONE SEEN); RBC,URINE 0-3 /HPF (0-3); SQUAMOUS EPITHELIAL CELL,UR FEW /HPF (NONE SEEN)
== END 2021-06-16 11:26 | disposition home or self-care (01) ==
LOC: ER 09:35
DX: N39.0 Urinary tract infection, site not specified (principal); G82.50 Quadriplegia, unspecified; Z87.440 Personal history of urinary (tract) infections; Z88.1 Allergy status to other antibiotic agents; Z88.0 Allergy status to penicillin; E78.5 Hyperlipidemia, unspecified; N31.9 Neuromuscular dysfunction of bladder, unspecified; N40.0 Benign prostatic hyperplasia without lower urinary tract symptoms; Z79.899 Other long term (current) drug therapy
CPT/HCPCS: 87086; A4663

== ENCOUNTER 2021-06-25 09:35 | Emergency (ER) | payer OTHER ==
[~2021-06-25] VITALS: Ht 172.7 cm; Wt 70.3 kg
[~2021-06-25 09:35] MED LIST changes: +PHEN-705 PO
[2021-06-25] MEDS ORDERED: CIPR-262 PO (09:59)
[2021-06-25 10:08] LABS: *BILIRUBIN,URIN NEGATIVE (NEGATIVE); *BLOOD, URINE NEGATIVE (NEGATIVE); *CLARITY,URINE CLEAR (CLEAR); *COLOR,URINE YELLOW (YELLOW); *KETONES,URINE NEGATIVE (NEGATIVE); *UROBILINOGEN,URINE 0.2 E.U./dl (NORMAL); LEUKOCYTE ESTERASE ,URINE NEGATIVE (NEGATIVE); NITRITE, URINE NEGATIVE (NEGATIVE); PH,URINE 6.5 (5.0-8.0); UGLUCOSE NEGATIVE (NEGATIVE)
--- NOTE | 2021-06-25 10:27 | NUR ---
PT WAS D/C'd TO HOME. D/C INSTRUCTIONS GIVEN TO THE PT BY DR ABREU.
[2021-06-25 10:32] VITALS: BP 136/69
== END 2021-06-25 10:33 | disposition home or self-care (01) ==
LOC: ER 09:35
DX: N30.90 Cystitis, unspecified without hematuria (principal); E78.5 Hyperlipidemia, unspecified; Z88.0 Allergy status to penicillin; Z88.1 Allergy status to other antibiotic agents; Z88.8 Allergy status to other drugs, medicaments and biological substances; Z79.2 Long term (current) use of antibiotics; Z79.899 Other long term (current) drug therapy
CPT/HCPCS: 87086; A4663

== ENCOUNTER 2021-07-25 09:15 | Emergency (ER) | payer OTHER ==
[~2021-07-25] VITALS: Ht 172.7 cm; Wt 70.3 kg
[~2021-07-25 09:15] MED LIST changes: +CIPR-262 PO
[2021-07-25 09:53] LABS: *BILIRUBIN,URIN NEGATIVE (NEGATIVE); *BLOOD, URINE NEGATIVE (NEGATIVE); *CLARITY,URINE CLEAR (CLEAR); *COLOR,URINE YELLOW (YELLOW); *KETONES,URINE NEGATIVE (NEGATIVE); *UROBILINOGEN,URINE 0.2 E.U./dl (NORMAL); LEUKOCYTE ESTERASE ,URINE 2+ (NEGATIVE); NITRITE, URINE NEGATIVE (NEGATIVE); UGLUCOSE NEGATIVE (NEGATIVE)
[2021-07-25] MEDS ORDERED: CIPR500T5 PO (10:01)
[2021-07-25 12:40] LABS: BACTERIA,URINE MANY /HPF (NONE SEEN); RBC,URINE 0-3 /HPF (0-3)
[2021-07-25 12:41] LABS: SQUAMOUS EPITHELIAL CELL,UR FEW /HPF (NONE SEEN)
== END 2021-07-25 10:14 | disposition home or self-care (01) ==
LOC: ER 09:15
DX: N39.0 Urinary tract infection, site not specified (principal); G82.50 Quadriplegia, unspecified; E78.5 Hyperlipidemia, unspecified; Z88.0 Allergy status to penicillin; Z88.1 Allergy status to other antibiotic agents; Z88.8 Allergy status to other drugs, medicaments and biological substances; Z79.2 Long term (current) use of antibiotics; Z79.899 Other long term (current) drug therapy
CPT/HCPCS: 87086; A4663

== ENCOUNTER 2021-08-20 11:48 | Emergency (ER) | payer OTHER ==
[~2021-08-20] VITALS: Ht 180.3 cm; Wt 77.1 kg
[~2021-08-20 11:48] MED LIST changes: +CIPR500T5 PO
--- NOTE | 2021-08-20 12:16 | NUR ---
PT IS IN ROOM #1B. DR CRISTINA EVALUATED THE PT.
[2021-08-20] MEDS: KETOROLAC TROMETHAMINE 15 MG INJ IM ONE (12:48)
[2021-08-20] MEDS ORDERED: NITR100C6 PO (12:51)
[2021-08-20] MEDS ORDERED: IBUP-1955 PO (12:51)
[2021-08-20] MEDS ORDERED: KETOROLAC TROMETHAMINE 15 MG INJ ONE (12:55)
[2021-08-20 13:50] LABS: *BILIRUBIN,URIN NEGATIVE (NEGATIVE); *COLOR,URINE YELLOW (YELLOW); *KETONES,URINE NEGATIVE (NEGATIVE); *UROBILINOGEN,URINE 0.2 E.U./dl (NORMAL); LEUKOCYTE ESTERASE ,URINE 1+ (NEGATIVE); NITRITE, URINE NEGATIVE (NEGATIVE); PH,URINE 7.5 (5.0-8.0); UGLUCOSE NEGATIVE (NEGATIVE)
[2021-08-20 13:52] LABS: *BLOOD, URINE TRACE (NEGATIVE)
[2021-08-20 13:53] LABS: *CLARITY,URINE SLIGHTLY CLOUDY (CLEAR)
--- NOTE | 2021-08-20 14:01 | NUR ---
pt was d/c'D to home. d/c instructions given to the pt by dr Hall.
[2021-08-20 14:02] VITALS: BP 146/78
[2021-08-20 14:04] LABS: RBC,URINE 0-3 /HPF (0-3); SQUAMOUS EPITHELIAL CELL,UR FEW /HPF (NONE SEEN)
[2021-08-20 14:05] LABS: BACTERIA,URINE MANY /HPF (NONE SEEN)
== END 2021-08-20 14:03 | disposition home or self-care (01) ==
LOC: ER 11:48
DX: N30.90 Cystitis, unspecified without hematuria (principal); R53.2 Functional quadriplegia; T14.8XXS Other injury of unspecified body region, sequela; X95.9XXS Assault by unspecified firearm discharge, sequela; E78.5 Hyperlipidemia, unspecified; Z88.1 Allergy status to other antibiotic agents; Z88.0 Allergy status to penicillin; Z87.440 Personal history of urinary (tract) infections; R32 Unspecified urinary incontinence; Z99.3 Dependence on wheelchair
CPT/HCPCS: 81001; 87086; 96372; 99283; J1885; A4663; C1758

== ENCOUNTER 2021-09-24 12:32 | Emergency (ER) | payer OTHER ==
[~2021-09-24] VITALS: Ht 180.3 cm; Wt 77.1 kg
[~2021-09-24 12:32] MED LIST changes: +IBUP-1955 PO; +NITR100C6 PO
[2021-09-24] MEDS ORDERED: KETOROLAC TROMETHAMINE 30 MG INJ ONE (12:59)
[2021-09-24] MEDS ORDERED: KETOROLAC TROMETHAMINE 30 MG INJ IM ONE (13:00)
--- NOTE | 2021-09-24 13:24 | NUR ---
Urine sent to lab
[2021-09-24 13:32] LABS: *BILIRUBIN,URIN NEGATIVE (NEGATIVE); *CLARITY,URINE CLEAR (CLEAR); *COLOR,URINE YELLOW (YELLOW); *KETONES,URINE NEGATIVE (NEGATIVE); *UROBILINOGEN,URINE 0.2 E.U./dl (NORMAL); LEUKOCYTE ESTERASE ,URINE 1+ (NEGATIVE); NITRITE, URINE POSITIVE (NEGATIVE); UGLUCOSE NEGATIVE (NEGATIVE)
[2021-09-24 13:34] LABS: *BLOOD, URINE TRACE (NEGATIVE)
[2021-09-24] MEDS ORDERED: NITR100C11 PO (14:02)
[2021-09-24] MEDS ORDERED: NAPR-1009 PO (14:02)
--- NOTE | 2021-09-24 14:07 | NUR ---
DC, Rx (and where to supervisor opening and picking) and follow up instructions given and explained to patient who states he understands all instructions
[2021-09-24 16:10] LABS: WBC,URINE 20-50 /HPF (0-3)
[2021-09-24 16:11] LABS: BACTERIA,URINE MANY /HPF (NONE SEEN); SQUAMOUS EPITHELIAL CELL,UR FEW /HPF (NONE SEEN)
== END 2021-09-24 14:08 | disposition home or self-care (01) ==
LOC: ER 12:32
DX: N39.0 Urinary tract infection, site not specified (principal); G82.50 Quadriplegia, unspecified; S14.109S Unspecified injury at unspecified level of cervical spinal cord, sequela; X95.9XXS Assault by unspecified firearm discharge, sequela; E78.5 Hyperlipidemia, unspecified; Z87.440 Personal history of urinary (tract) infections; R32 Unspecified urinary incontinence; Z88.1 Allergy status to other antibiotic agents; Z88.0 Allergy status to penicillin
CPT/HCPCS: 81001; 87077; 87086; 87186; 96372; 99283; J1885; C1758

== ENCOUNTER 2021-10-28 10:52 | Emergency (ER) | payer OTHER ==
[~2021-10-28] VITALS: Ht 177.8 cm; Wt 77.1 kg
[~2021-10-28 10:52] MED LIST changes: +NAPR-1009 PO; +NITR100C11 PO
--- NOTE | 2021-10-28 11:00 | NUR ---
Dr Hall at the bedside for MSE.
--- NOTE | 2021-10-28 11:05 | NUR ---
Urine collected from Pt's own leg bag and sent to LAB.
[2021-10-28 11:12] LABS: *BILIRUBIN,URIN NEGATIVE (NEGATIVE); *BLOOD, URINE NEGATIVE (NEGATIVE); *CLARITY,URINE CLEAR (CLEAR); *COLOR,URINE YELLOW (YELLOW); *KETONES,URINE NEGATIVE (NEGATIVE); *UROBILINOGEN,URINE 0.2 E.U./dl (NORMAL); LEUKOCYTE ESTERASE ,URINE 1+ (NEGATIVE); NITRITE, URINE POSITIVE (NEGATIVE); UGLUCOSE NEGATIVE (NEGATIVE)
[2021-10-28] MEDS ORDERED: KETOROLAC TROMETHAMINE 15 MG INJ IM ONE (11:45)
[2021-10-28] MEDS ORDERED: KETOROLAC TROMETHAMINE 15 MG INJ ONE (11:47)
[2021-10-28] MEDS ORDERED: IBUP-1955 PO (11:49)
[2021-10-28] MEDS ORDERED: CEFD300C3 PO (11:49)
[2021-10-28 11:59] VITALS: BP 108/56
[2021-10-28 13:28] LABS: BACTERIA,URINE MANY /HPF (NONE SEEN); RBC,URINE 0-3 /HPF (0-3)
[2021-10-28 13:29] LABS: SQUAMOUS EPITHELIAL CELL,UR FEW /HPF (NONE SEEN); YEAST,URINE NONE SEEN /HPF (NONE SEEN)
== END 2021-10-28 11:59 | disposition home or self-care (01) ==
LOC: ER 10:52
DX: N30.80 Other cystitis without hematuria (principal); Z88.0 Allergy status to penicillin; R53.2 Functional quadriplegia; Z87.440 Personal history of urinary (tract) infections; I95.89 Other hypotension; T14.90XS Injury, unspecified, sequela; X95.9XXS Assault by unspecified firearm discharge, sequela; E78.5 Hyperlipidemia, unspecified; R32 Unspecified urinary incontinence
CPT/HCPCS: 81001; 87086; 96372; 99283; J1885; 87077; A4663

== ENCOUNTER 2021-11-13 11:01 | Emergency (ER) | payer OTHER ==
[~2021-11-13] VITALS: Ht 165.1 cm; Wt 68.0 kg
[~2021-11-13 11:01] MED LIST changes: +CEFD300C3 PO
--- NOTE | 2021-11-13 11:14 | NUR ---
PT IS IN ROOM #2B. DR DAVID EVALUATED THE PT.
[2021-11-13 11:29] LABS: *BILIRUBIN,URIN NEGATIVE (NEGATIVE); *CLARITY,URINE CLEAR (CLEAR); *COLOR,URINE YELLOW (YELLOW); *KETONES,URINE NEGATIVE (NEGATIVE); *UROBILINOGEN,URINE 0.2 E.U./dl (NORMAL); LEUKOCYTE ESTERASE ,URINE 1+ (NEGATIVE); NITRITE, URINE POSITIVE (NEGATIVE); PH,URINE 7.5 (5.0-8.0); UGLUCOSE NEGATIVE (NEGATIVE)
[2021-11-13 11:30] LABS: *BLOOD, URINE TRACE (NEGATIVE)
[2021-11-13] MEDS ORDERED: DOXY-326 PO (11:45)
[2021-11-13] MEDS ORDERED: GENTAMICIN SULFATE 80 MG/2 ML VIAL IM ONE (11:45)
[2021-11-13] MEDS ORDERED: GENTAMICIN SULFATE 80 MG/2 ML VIAL ONE (11:49)
--- NOTE | 2021-11-13 12:10 | NUR ---
PT WAS D/C'd TO HOME. D/C INSTRUCTIONS GIVEN TO THE PT BY DR DAVID.
[2021-11-13 12:12] VITALS: BP 141/81
[2021-11-13 12:42] LABS: BACTERIA,URINE MANY /HPF (NONE SEEN); SQUAMOUS EPITHELIAL CELL,UR FEW /HPF (NONE SEEN); WBC,URINE 0-3 /HPF (0-3)
[2021-11-13 12:44] LABS: TRIPLE PHOSPHATE CRYSTAL,UR FEW /HPF (NONE SEEN)
== END 2021-11-13 12:14 | disposition home or self-care (01) ==
LOC: ER 11:01
DX: N39.0 Urinary tract infection, site not specified (principal); E78.5 Hyperlipidemia, unspecified; R32 Unspecified urinary incontinence; R53.2 Functional quadriplegia; T14.90XS Injury, unspecified, sequela; X95.9XXS Assault by unspecified firearm discharge, sequela; Z87.440 Personal history of urinary (tract) infections
CPT/HCPCS: 81001; 87086; 96372; 99283; J1580; A4663

== ENCOUNTER 2022-01-05 12:32 | Emergency (ER) | payer OTHER ==
[~2022-01-05] VITALS: Ht 165.1 cm; Wt 77.1 kg
[~2022-01-05 12:32] MED LIST changes: +DOXY-326 PO
[2022-01-05 14:45] LABS: *BILIRUBIN,URIN NEGATIVE (NEGATIVE); *BLOOD, URINE NEGATIVE (NEGATIVE); *CLARITY,URINE CLEAR (CLEAR); *COLOR,URINE LIGHT YELLOW (YELLOW); *KETONES,URINE NEGATIVE (NEGATIVE); *UROBILINOGEN,URINE 0.2 E.U./dl (NORMAL); LEUKOCYTE ESTERASE ,URINE 2+ (NEGATIVE); NITRITE, URINE NEGATIVE (NEGATIVE); UGLUCOSE NEGATIVE (NEGATIVE)
[2022-01-05] MEDS ORDERED: KETOROLAC TROMETHAMINE 60 MG INJ IM ONE ×2 (15:11→15:15)
[2022-01-05 15:28] LABS: BACTERIA,URINE MODERATE /HPF (NONE SEEN); RBC,URINE 0-3 /HPF (0-3)
[2022-01-05 15:29] LABS: SQUAMOUS EPITHELIAL CELL,UR FEW /HPF (NONE SEEN)
[2022-01-05] MEDS ORDERED: CEFD300C3 PO (16:01)
[2022-01-05 17:05] VITALS: BP 110/65
== END 2022-01-05 17:10 | disposition home or self-care (01) ==
LOC: ER 12:32
DX: N39.0 Urinary tract infection, site not specified (principal); Z87.440 Personal history of urinary (tract) infections; G82.50 Quadriplegia, unspecified; S14.109S Unspecified injury at unspecified level of cervical spinal cord, sequela; X95.9XXS Assault by unspecified firearm discharge, sequela; Z88.1 Allergy status to other antibiotic agents; Z88.0 Allergy status to penicillin; E78.5 Hyperlipidemia, unspecified
CPT/HCPCS: 99283; 81001; 87086; 96372; J1885; 87077; A4663

== ENCOUNTER 2022-03-08 18:20 | Emergency (ER) | payer OTHER ==
[~2022-03-08] VITALS: Ht 172.7 cm; Wt 77.1 kg
--- NOTE | 2022-03-08 19:04 | NUR ---
PT IS IN ROOM #3. DR JANG EVALUATED THE PT.
[2022-03-08 19:27] LABS: HEMATOCRIT 35.3 % (36.7-47.1); MEAN CORPUSCULAR HEMOGLOBIN 29.8 uug (23.8-33.4); PLATELET COUNT (AUTO) 230 K/uL (152-348)
[2022-03-08 19:30] LABS: CREATININE 0.7 mg/dL (0.6-1.3)
[2022-03-08 19:59] LABS: *BILIRUBIN,URIN NEGATIVE (NEGATIVE); *BLOOD, URINE TRACE (NEGATIVE); *CLARITY,URINE CLOUDY (CLEAR); *COLOR,URINE LIGHT YELLOW (YELLOW); *KETONES,URINE NEGATIVE (NEGATIVE); *UROBILINOGEN,URINE 0.2 E.U./dl (NORMAL); LEUKOCYTE ESTERASE ,URINE 1+ (NEGATIVE); NITRITE, URINE NEGATIVE (NEGATIVE); PH,URINE 6.5 (5.0-8.0); UGLUCOSE NEGATIVE (NEGATIVE)
[2022-03-08 20:05] LABS: RBC,URINE 0-3 /HPF (0-3)
[2022-03-08 20:06] LABS: BACTERIA,URINE MANY /HPF (NONE SEEN); SQUAMOUS EPITHELIAL CELL,UR FEW /HPF (NONE SEEN); WBC,URINE 80-100 /HPF (0-3)
[2022-03-08] MEDS ORDERED: CEFD300C3 PO (20:41)
[2022-03-08] MEDS ORDERED: GENTAMICIN SULFATE 20 MG/2 ML VIAL IV ONE ×2 (20:45→21:05)
[2022-03-08] MEDS ORDERED: GENTAMICIN SULFATE 80 MG/2 ML VIAL ONE (21:06)
--- NOTE | 2022-03-08 21:55 | NUR ---
Patient discharged to home in stable condition. Written and verbal after care instructions given. Patient verbalizes understanding of instructions. Stressed follow up or return to ER for worsening s/s. Patient is out of E.R. via electric wheel chair, vitals signs stable with no signs of distress and removed IV.
[2022-03-08 21:57] VITALS: BP 103/62
== END 2022-03-08 21:57 | disposition home or self-care (01) ==
LOC: ER 18:23
DX: N39.0 Urinary tract infection, site not specified (principal); D72.828 Other elevated white blood cell count; M62.59 Muscle wasting and atrophy, not elsewhere classified, multiple sites; G82.50 Quadriplegia, unspecified; E78.5 Hyperlipidemia, unspecified; Z99.3 Dependence on wheelchair; Z86.73 Personal history of transient ischemic attack (TIA), and cerebral infarction without residual deficits; Z87.440 Personal history of urinary (tract) infections; Z88.1 Allergy status to other antibiotic agents; Z88.0 Allergy status to penicillin
CPT/HCPCS: 99284; 96365; 80048; 81001; 85025; 87040; 87186; 87086; 87077; 36415; J1580 ×2; A4663; C1758

== ENCOUNTER 2022-03-25 17:11 | Emergency (ER) | payer OTHER ==
[~2022-03-25] VITALS: Ht 167.6 cm; Wt 65.8 kg
--- NOTE | 2022-03-25 20:00 | NUR ---
PATIENT WAS CALLED TO HAVE VITALS SIGNS RE TAKING, BUT PATIENT WAS NOT PRESENT IN THE WAITING ROOM OR OUTSIDE OF ER. PATIENT WAS PLACED BACK IN THE WAITING ROOM BY PRIOR SHIFT DUE TO NO BEDS AVAILABLE IN THE ER.
--- NOTE | 2022-03-25 20:30 | NUR ---
PATIENT WAS CALLED TO HAVE VITALS SIGNS RETAKEN BUT WAS NOT PRESENT IN THE WAITING ROOM OR OUTSIDE OF ER.
--- NOTE | 2022-03-25 20:35 | NUR ---
PATIENT WAS TRIAGED BUT NOT SEEN BY ERMD.
[2022-03-26] MEDS ORDERED: CEPH500C2 PO (15:58)
== END 2022-03-25 20:35 | disposition left against medical advice (07) ==
LOC: ER 17:11
DX: Z53.21 Procedure and treatment not carried out due to patient leaving prior to being seen by health care provider (principal)

== ENCOUNTER 2022-03-26 12:50 | Emergency (ER) | payer OTHER ==
[~2022-03-26] VITALS: Ht 172.7 cm; Wt 77.1 kg
[2022-03-26] MEDS ORDERED: ACETAMINOPHEN 325 MG TABLET PO ONE (13:15)
[2022-03-26] MEDS ORDERED: ACETAMINOPHEN 325 MG TABLET ONE (13:16)
--- NOTE | 2022-03-26 13:18 | NUR ---
PT SEEN AND EVALUATED BY DR LOUIS. MEDICATED PER MD ORDER.
[2022-03-26] MEDS ORDERED: CYCLOBENZAPRINE HCL 10 MG TABLET PO ONE (13:30)
[2022-03-26] MEDS ORDERED: CYCLOBENZAPRINE HCL 10 MG TABLET ONE (13:36)
[2022-03-26 13:37] LABS: HEMATOCRIT 41.7 % (36.7-47.1); MEAN CORPUSCULAR HEMOGLOBIN 29.7 uug (23.8-33.4); MEAN CORPUSCULAR VOLUME 89.8 fL (73.0-96.2); PLATELET COUNT (AUTO) 256 K/uL (152-348)
[2022-03-26 13:54] LABS: BILIRUBIN,TOTAL 0.5 mg/dL (0.2-1.0); CREATININE 0.7 mg/dL (0.6-1.3); POTASSIUM 4.5 mmol/L (3.5-5.1); TOTAL PROTEIN, SERUM 8.6 g/dL (6.4-8.2)
--- NOTE | 2022-03-26 14:09 | NUR ---
Urine taken to lab.
--- NOTE | 2022-03-26 14:10 | NUR ---
Patient taken down for CT.
[2022-03-26 14:21] LABS: *BILIRUBIN,URIN NEGATIVE (NEGATIVE); *CLARITY,URINE CLEAR (CLEAR); *COLOR,URINE YELLOW (YELLOW); *KETONES,URINE 1+ (NEGATIVE); *UROBILINOGEN,URINE 0.2 E.U./dl (NORMAL); LEUKOCYTE ESTERASE ,URINE 2+ (NEGATIVE); NITRITE, URINE POSITIVE (NEGATIVE); UGLUCOSE NEGATIVE (NEGATIVE)
--- NOTE | 2022-03-26 14:35 | NUR ---
Pt back from CT.
[2022-03-26 14:46] LABS: *BLOOD, URINE TRACE (NEGATIVE)
[2022-03-26] MEDS ORDERED: GENTAMICIN SULFATE 20 MG/2 ML VIAL IV ONE (15:30)
[2022-03-26] MEDS ORDERED: GENTAMICIN SULFATE 80 MG/2 ML VIAL ONE (15:36)
[2022-03-26] MEDS ORDERED: CEPH500C2 PO (15:58)
[2022-03-26] MEDS ORDERED: DEXTROSE 5% IV ONE (16:00)
[2022-03-26] MEDS ORDERED: GENTAMICIN SULFATE IV ONE (16:00)
--- NOTE | 2022-03-26 17:00 | NUR ---
Patient discharged to home in stable condition. A/O x4. NAD noted. Using transportation device efficiently. Written and verbal after care instructions given. Patient verbalizes understanding of instructions. Stressed follow up or return to ER for worsening s/s.
[2022-03-26 17:35] VITALS: BP 110/64
[2022-03-26 18:08] LABS: BACTERIA,URINE MODERATE /HPF (NONE SEEN); SQUAMOUS EPITHELIAL CELL,UR FEW /HPF (NONE SEEN); WBC,URINE 20-50 /HPF (0-3)
== END 2022-03-26 17:00 | disposition home or self-care (01) ==
LOC: ER 12:50
DX: R10.31 Right lower quadrant pain (principal); N39.0 Urinary tract infection, site not specified; Z88.0 Allergy status to penicillin; Z88.1 Allergy status to other antibiotic agents; E78.5 Hyperlipidemia, unspecified; G82.20 Paraplegia, unspecified; T14.8XXS Other injury of unspecified body region, sequela; Z86.73 Personal history of transient ischemic attack (TIA), and cerebral infarction without residual deficits; Z79.899 Other long term (current) drug therapy
CPT/HCPCS: 99284; 74176; 96365; 80053; 81001; 85025; 87086; 36415; J1580; J7050; 87077; A4663

== ENCOUNTER 2022-05-26 19:08 | Emergency (ER) | payer OTHER ==
[~2022-05-26 19:08] MED LIST changes: +CEPH500C2 PO
--- NOTE | 2022-05-26 20:00 | NUR ---
Patient was called to be triaged but was not present in the waiting room or outside of ER.
--- NOTE | 2022-05-26 20:45 | NUR ---
Patient was called to be triaged but was not present in the waiting room or outside of ER.
--- NOTE | 2022-05-26 21:20 | NUR ---
Patient was called to be triaged but was not present. PATIENT WAS NOT TRIAGED OR SEEN BY ERMD.
== END 2022-05-26 21:20 | disposition left against medical advice (07) ==
LOC: ER 19:08
DX: Z53.21 Procedure and treatment not carried out due to patient leaving prior to being seen by health care provider (principal)